=== PATIENT | male | born 1990 | race African-American/Black ===

== ENCOUNTER 2019-08-08 20:35 | Inpatient (IN) | payer OTHER ==
[~2019-08-08] VITALS: Ht 170.2 cm; Wt 70.8 kg
[~2019-08-08 20:35] MED LIST: ACET-2247 PO; BISA-151 PO; BUME1TAB34 PO; ERGO500014 PO; ETOMIDATE 2 MG/ML 10 ML VIAL IV ONE; GABA-531 PO; INSU100I26 SQ; INSU100V SQ; LOSA25TA41 PO; METH10 PO; METO25 PO; METR500 PO; MULT-248 PO; NYST15PO3 TP; PANT40TA25 PO; ROCURONIUM BROMIDE 10 MG/ML 5 ML VIAL IV ONE; VANC750P8 IV
[2019-08-08] MEDS ORDERED: ROCURONIUM BROMIDE 10 MG/ML 5 ML VIAL ONE (21:06)
[2019-08-08] MEDS ORDERED: RAPID SEQUENCE KIT [RSI] 1 EACH KIT ONE (21:06)
[2019-08-08] MEDS ORDERED: SUCCINYLCHOLINE CHLORIDE 20 MG/ML 10 ML VIAL ONE (21:06)
[2019-08-08 21:10] LABS: BASOPHILS % (AUTO) 1.2 % (0.0-2.0); EOSINOPHILS % (AUTO) 0 % (1.0-6.0); HEMATOCRIT 48.8 % (41-53); HEMOGLOBIN 15.3 g/dL (13.5-17.5); LYMPHOCYTES # (AUTO) 1.3 K/uL (1.0-4.8); LYMPHOCYTES % (AUTO) 13.1 % (22.0-44.0); MEAN CORPUSCULAR HEMOGLOBIN 27.2 pg (26.0-34.0); MEAN CORPUSCULAR HGB CONC 31.3 G/dL (31.0-37.0); MEAN CORPUSCULAR VOLUME 87 fL (80-100); MONOCYTES # (AUTO) 0.8 K/uL (0.1-1.0); NEUTROPHILS # (AUTO) 7.8 K/uL (1.8-7.7); NEUTROPHILS % (AUTO) 77.7 % (40.0-70.0); PLATELET COUNT (AUTO) 387 K/uL (150-450); RED BLOOD CELL COUNT(AUTO) 5.62 MIL/uL (4.50-5.90); RED CELL DISTRIBUTION WIDTH 19.6 % (11.5-14.5)
[2019-08-08 21:12] LABS: ANION GAP 11 mmol/L (8-16); CALCIUM, TOTAL 8.2 mg/dL (8.8-10.5); CARBON DIOXIDE 27 mmol/L (22-29); CHLORIDE 100 mmol/L (98-107); CREATININE 1.99 mg/dL (0.60-1.30); GLOMERULAR FILTR. RATE CALC 49 mL/min (>60); GLUCOSE,RANDOM 91 mg/dL (70-110); POTASSIUM 4.6 mmol/L (3.5-5.1); SODIUM SERUM 138 mmol/L (136-145); UREA NITROGEN, BLOOD 30 mg/dL (7-18)
[2019-08-08 21:18] LABS: TROPONIN I 0.48 ng/mL (0.00-0.05)
[2019-08-08 21:22] LABS: INR 1.3 (0.9-1.1); PROTHROMBIN TIME 13.1 SEC (9.4-11.6)
[2019-08-08] MEDS ORDERED: PROPOFOL 1000 MG/ISO-OSM 100 ML IV ONE (21:35)
[2019-08-08 21:37] LABS: ALANINE AMINOTRANSFERASE 25 U/L (12-78); ALBUMIN 2.6 g/dL (3.4-5.0); ALKALINE PHOSPHATASE 185 U/L (46-116); ASPARTATE AMINOTRANSFERASE 36 U/L (15-37); BILIRUBIN,TOTAL 0.8 mg/dL (0.1-1.0); CREATINE KINASE, TOTAL ONLY 225 U/L (39-308); LACTIC ACID 5.3 mmol/L (0.4-2.0); TOTAL PROTEIN, SERUM 7.6 g/dL (6.4-8.2)
[2019-08-08 21:44] LABS: GLUCOSE,POINT OF CARE 90 MG/DL (70-110)
[2019-08-08] MEDS ORDERED: SODIUM CHLORIDE 0.9% 1,000 ML IV ONE ×2 (21:45)
[2019-08-08 22:03] LABS: AMPHET/METH SCREEN,URINE NEGATIVE (NEGATIVE); BARBITURATE SCREEN, URINE NEGATIVE (NEGATIVE); BENZODIAZEPINES SCREEN,URINE NEGATIVE (NEGATIVE); CANNABINOID SCREEN,URINE POSITIVE (NEGATIVE); COCAINE SCREEN,URINE NEGATIVE (NEGATIVE); METHADONE SCREEN, URINE NEGATIVE (NEGATIVE); OPIATE SCREEN,URINE POSITIVE (NEGATIVE)
[2019-08-08 22:06] LABS: APPEARANCE,URINE CLEAR (CLEAR); BILIRUBIN,URINE NEGATIVE (NEGATIVE); GLUCOSE, URINE (UA) NEGATIVE (NEGATIVE); KETONES,URINE TRACE mg/dL (NEGATIVE); LEUKOCYTE ESTERASE ,URINE NEGATIVE (NEGATIVE); NITRATE,URINE NEGATIVE (NEGATIVE); OCCULT BLOOD,URINE NEGATIVE (NEGATIVE); PROTEIN,URINE SEE CONFIRM (NEGATIVE)
[2019-08-08 22:07] LABS: PHENCYCLIDINE SCREEN,URINE NEGATIVE (NEGATIVE)
[2019-08-08] MEDS: PROPOFOL 1000 MG/ISO-OSM 100 ML IV PRN (22:19)
[2019-08-08 22:31] LABS: SULFOSALICYLIC ACID,URINE 3+ (Negative)
[2019-08-08 22:34] LABS: WBC,URINE 0-2 /HPF (0-5)
[2019-08-08 22:35] LABS: BACTERIA,URINE Rare /HPF (None Seen); SQUAMOUS EPITHELIAL CELL,UR Rare /LPF (None Seen)
[2019-08-08 22:36] LABS: RBC,URINE 0-2 /HPF (0-2)
[2019-08-08 22:36] LABS: GLUCOSE,POINT OF CARE 88 MG/DL (70-110)
[2019-08-08 22:37] LABS: RENAL EPITHELIAL CELLS,URINE Rare /LPF (None Seen)
[2019-08-08] MEDS ORDERED: LEVOFLOXACIN 750 MG/D5% WATER 150 ML IV ONE (22:45)
[2019-08-08 23:20] LABS: ABG A-A DIFF O2 434.2 mmHg (10-20.0); ABG BASE EXCESS -0.7 mmol/L (-2.0-3.0); ABG CARBOXYHEMOGLOBIN 1.8 % (0.0-3.0); ABG HCO3 21.3 mmol/L (22.0-26.0); ABG METHEMOGLOBIN 0.4 % (0.0-1.5); ABG OXYGEN CONTENT 21.9 mL/dL (15.0-23.0); ABG OXYGEN SATURATION 98.7 % (95.0-98.0); ABG OXYHEMOGLOBIN 96.5 % (94.0-100.0); ABG TOTAL HEMOGLOBIN 15.9 G/dL (12.0-18.0); PO2, ARTERIAL BG 183.3 mmHg (80.0-100.0); SOURCE, BLOOD GAS ARTERIAL; TEMPERATURE, FAHRENHEIT, BG 98.6 FAHREN (96.0-98.6)
[2019-08-08 23:21] LABS: ABG PCO2 96 mmHg (35-45); O2 DEVICE,BLOOD GAS VENTILATOR (ROOM AIR); PEEP,BG 5 cm H2O; SITE, BLOOD GAS RT RADIAL; VT, ABG 500 ml
[2019-08-08] MEDS ORDERED: BISACODYL 10 MG RECTAL RECTAL SUPPOSITORY PR PRN (23:45)
[2019-08-08 23:52] LABS: GLUCOSE,POINT OF CARE 138 MG/DL (70-110)
[2019-08-09] VITALS (9 sets, daily range): BP systolic 127–176; BP diastolic 11–117
[2019-08-09] MEDS: HEPARIN SODIUM,PORCINE 5,000 UNITS/ML VIAL SQ SCH ×3 (01:01→17:09)
[2019-08-09] MEDS: PROPOFOL 1000 MG/ISO-OSM 100 ML IV PRN ×4 (01:02→20:03)
[2019-08-09] MEDS: SODIUM CHLORIDE 0.9% 1,000 ML IV SCH ×2 (01:04→09:49)
[2019-08-09] MEDS: CloNIDine HCL 0.1 MG TABLET PO PRN ×2 (01:59→10:47)
[2019-08-09 05:29] LABS: ANION GAP 9 mmol/L (8-16); CALCIUM, TOTAL 7.7 mg/dL (8.8-10.5); CARBON DIOXIDE 25 mmol/L (22-29); CHLORIDE 104 mmol/L (98-107); GLOMERULAR FILTR. RATE CALC > 60 mL/min (>60); GLUCOSE,RANDOM 122 mg/dL (70-110); POTASSIUM 4.4 mmol/L (3.5-5.1); SODIUM SERUM 138 mmol/L (136-145); UREA NITROGEN, BLOOD 28 mg/dL (7-18)
[2019-08-09 05:59] LABS: BASOPHILS % (AUTO) 0.7 % (0.0-2.0); EOSINOPHILS % (AUTO) 0.4 % (1.0-6.0); HEMATOCRIT 39.3 % (41-53); HEMOGLOBIN 12.4 g/dL (13.5-17.5); LYMPHOCYTES # (AUTO) 2.3 K/uL (1.0-4.8); LYMPHOCYTES % (AUTO) 11.7 % (22.0-44.0); MEAN CORPUSCULAR HEMOGLOBIN 27.2 pg (26.0-34.0); MEAN CORPUSCULAR HGB CONC 31.5 G/dL (31.0-37.0); MEAN CORPUSCULAR VOLUME 86 fL (80-100); NEUTROPHILS # (AUTO) 15.2 K/uL (1.8-7.7); NEUTROPHILS % (AUTO) 77.2 % (40.0-70.0); PLATELET COUNT (AUTO) 286 K/uL (150-450); RED BLOOD CELL COUNT(AUTO) 4.56 MIL/uL (4.50-5.90); RED CELL DISTRIBUTION WIDTH 18.8 % (11.5-14.5)
[2019-08-09 06:17] LABS: PLATELET MORPHOLOGY COMMENT LARGE PLTS PRESENT
[2019-08-09 08:07] LABS: ABG METHEMOGLOBIN 0.3 % (0.0-1.5); SOURCE, BLOOD GAS ARTERIAL; TEMPERATURE, FAHRENHEIT, BG 98.6 FAHREN (96.0-98.6)
[2019-08-09 08:09] LABS: ABG A-A DIFF O2 126.6 mmHg (10-20.0); ABG BASE EXCESS -3.1 mmol/L (-2.0-3.0); ABG CARBOXYHEMOGLOBIN 1.8 % (0.0-3.0); ABG HCO3 22.4 mmol/L (22.0-26.0); ABG OXYGEN CONTENT 18.7 mL/dL (15.0-23.0); ABG OXYGEN SATURATION 98.4 % (95.0-98.0); ABG OXYHEMOGLOBIN 96.3 % (94.0-100.0); ABG PCO2 36 mmHg (35-45); ABG PH 7.398 (7.350-7.450); ABG TOTAL HEMOGLOBIN 13.7 G/dL (12.0-18.0); PO2, ARTERIAL BG 117.2 mmHg (80.0-100.0)
[2019-08-09 08:10] LABS: O2 DEVICE,BLOOD GAS VENTILATOR (ROOM AIR); PEEP,BG 5 cm H2O; SITE, BLOOD GAS RT RADIAL; VT, ABG 500 ml
[2019-08-09] MEDS ORDERED: *CLINICAL-LEVOFLOXACIN IVPB DOSING CLINICAL ONE (08:30)
[2019-08-09] MEDS: DEXTROSE 50%-WATER 25 GM/50 ML SYRINGE IVP PRN ×2 (12:23→22:10)
[2019-08-09] MEDS ORDERED: DEXTROSE 5%-WATER 1,000 ML IV SCH (12:30)
[2019-08-09] MEDS: DEXTROSE 5%-0.9% SODIUM CHL 1,000 ML IV SCH (13:40)
[2019-08-09 13:49] LABS: GLUCOSE,POINT OF CARE 148 MG/DL (70-110)
[2019-08-09] MEDS: HydrALAZINE HCL 20 MG/ML VIAL IVP PRN (16:15)
[2019-08-09] MEDS ORDERED: ETOMIDATE 2 MG/ML 10 ML VIAL IV ONE (18:08)
[2019-08-09] MEDS ORDERED: ROCURONIUM BROMIDE 10 MG/ML 5 ML VIAL IV ONE (18:08)
[2019-08-09 18:15] LABS: GLUCOSE,POINT OF CARE 64 MG/DL (70-110)
[2019-08-09 19:12] LABS: GLUCOSE,POINT OF CARE 102 MG/DL (70-110)
[2019-08-09] MEDS: METOPROLOL TARTRATE 25 MG TABLET PO SCH (20:02)
[2019-08-09] MEDS: FentaNYL CITRATE PF 500 MCG in DEXTROSE 5%-WATER 90 ML IV PRN (20:15)
[2019-08-09] MEDS: LEVOFLOXACIN 750 MG/D5% WATER 150 ML IV SCH (23:11)
[2019-08-10] VITALS: BP 138/89
[2019-08-10] MEDS: HEPARIN SODIUM,PORCINE 5,000 UNITS/ML VIAL SQ SCH ×4 (00:05→23:29)
[2019-08-10] MEDS: PROPOFOL 1000 MG/ISO-OSM 100 ML IV PRN ×5 (00:06→20:54)
[2019-08-10 01:06] LABS: GLUCOSE,POINT OF CARE 61 MG/DL (70-110)
[2019-08-10 01:06] LABS: GLUCOSE,POINT OF CARE 157 MG/DL (70-110)
[2019-08-10] MEDS: FentaNYL CITRATE PF 500 MCG in DEXTROSE 5%-WATER 90 ML IV PRN ×4 (03:22→21:20)
[2019-08-10 04:00] VITALS: BP 129/83
[2019-08-10] MEDS: DEXTROSE 5%-0.9% SODIUM CHL 1,000 ML IV SCH ×2 (04:28→17:08)
[2019-08-10] MEDS: INSULIN LISPRO 100 UNITS/ML SQ PRN ×4 (05:43→23:48)
[2019-08-10] MEDS: LORazepam 2 MG/ML VIAL IVP PRN ×2 (06:32→20:58)
[2019-08-10 07:30] LABS: GLUCOSE,POINT OF CARE 202 MG/DL (70-110)
[2019-08-10 08:00] VITALS: BP 109/62
[2019-08-10 09:09] LABS: BASOPHILS % (AUTO) 0.8 % (0.0-2.0); EOSINOPHILS % (AUTO) 5.3 % (1.0-6.0); HEMOGLOBIN 13.8 g/dL (13.5-17.5); LYMPHOCYTES # (AUTO) 2.1 K/uL (1.0-4.8); LYMPHOCYTES % (AUTO) 21.5 % (22.0-44.0); MEAN CORPUSCULAR HEMOGLOBIN 27.3 pg (26.0-34.0); MEAN CORPUSCULAR HGB CONC 31.4 G/dL (31.0-37.0); MEAN CORPUSCULAR VOLUME 87 fL (80-100); MONOCYTES # (AUTO) 0.9 K/uL (0.1-1.0); MONOCYTES % (AUTO) 9.4 % (2.0-9.0); NEUTROPHILS # (AUTO) 6.2 K/uL (1.8-7.7); PLATELET COUNT (AUTO) 246 K/uL (150-450); RED BLOOD CELL COUNT(AUTO) 5.05 MIL/uL (4.50-5.90); RED CELL DISTRIBUTION WIDTH 18.9 % (11.5-14.5)
[2019-08-10 09:19] LABS: ANION GAP 7 mmol/L (8-16); CALCIUM, TOTAL 7.5 mg/dL (8.8-10.5); CARBON DIOXIDE 29 mmol/L (22-29); CHLORIDE 105 mmol/L (98-107); CREATININE 1.07 mg/dL (0.60-1.30); GLOMERULAR FILTR. RATE CALC > 60 mL/min (>60); GLUCOSE,RANDOM 195 mg/dL (70-110); POTASSIUM 3.3 mmol/L (3.5-5.1); SODIUM SERUM 141 mmol/L (136-145); UREA NITROGEN, BLOOD 13 mg/dL (7-18)
[2019-08-10] MEDS: METOPROLOL TARTRATE 25 MG TABLET PO SCH ×2 (09:24→21:19)
[2019-08-10 11:37] LABS: GLUCOSE,POINT OF CARE 220 MG/DL (70-110)
[2019-08-10 12:00] VITALS: BP 129/75
[2019-08-10 16:00] VITALS: BP 138/98
[2019-08-10 18:57] LABS: GLUCOSE,POINT OF CARE 143 MG/DL (70-110)
[2019-08-10 20:00] VITALS: BP 116/67
[2019-08-10] MEDS: POTASSIUM CHL 10 MEQ/WATER 50 ML IV SCH ×2 (21:13→22:27)
[2019-08-10] MEDS: LEVOFLOXACIN 750 MG/D5% WATER 150 ML IV SCH (23:25)
[2019-08-11] VITALS: BP 114/75
[2019-08-11] MEDS: PROPOFOL 1000 MG/ISO-OSM 100 ML IV PRN ×5 (00:48→18:22)
[2019-08-11 00:51] LABS: GLUCOSE,POINT OF CARE 159 MG/DL (70-110)
[2019-08-11] MEDS: FentaNYL CITRATE PF 500 MCG in DEXTROSE 5%-WATER 90 ML IV PRN ×2 (04:27→13:43)
[2019-08-11 04:34] VITALS: BP 133/94
[2019-08-11] MEDS: INSULIN LISPRO 100 UNITS/ML SQ PRN ×3 (06:39→18:24)
[2019-08-11 06:51] LABS: ANION GAP 7 mmol/L (8-16); CARBON DIOXIDE 26 mmol/L (22-29); CHLORIDE 105 mmol/L (98-107); CREATININE 0.95 mg/dL (0.60-1.30); GLOMERULAR FILTR. RATE CALC > 60 mL/min (>60); GLUCOSE,RANDOM 387 mg/dL (70-110); SODIUM SERUM 138 mmol/L (136-145); UREA NITROGEN, BLOOD 12 mg/dL (7-18)
[2019-08-11 08:00] VITALS: BP 140/93
[2019-08-11] MEDS: HEPARIN SODIUM,PORCINE 5,000 UNITS/ML VIAL SQ SCH ×2 (08:09→16:51)
[2019-08-11] MEDS: METOPROLOL TARTRATE 25 MG TABLET PO SCH ×2 (08:10→22:10)
[2019-08-11] MEDS: DEXTROSE 5%-0.9% SODIUM CHL 1,000 ML IV SCH (08:13)
[2019-08-11 08:24] LABS: GLUCOSE,POINT OF CARE 365 MG/DL (70-110)
[2019-08-11 08:56] LABS: BASOPHILS % (AUTO) 0.6 % (0.0-2.0); EOSINOPHILS % (AUTO) 7.7 % (1.0-6.0); HEMATOCRIT 46.6 % (41-53); HEMOGLOBIN 14.7 g/dL (13.5-17.5); LYMPHOCYTES # (AUTO) 1.6 K/uL (1.0-4.8); LYMPHOCYTES % (AUTO) 18.2 % (22.0-44.0); MEAN CORPUSCULAR HEMOGLOBIN 27.4 pg (26.0-34.0); MEAN CORPUSCULAR HGB CONC 31.5 G/dL (31.0-37.0); MEAN CORPUSCULAR VOLUME 87 fL (80-100); MONOCYTES # (AUTO) 0.7 K/uL (0.1-1.0); MONOCYTES % (AUTO) 7.7 % (2.0-9.0); NEUTROPHILS # (AUTO) 5.6 K/uL (1.8-7.7); NEUTROPHILS % (AUTO) 65.8 % (40.0-70.0); PLATELET COUNT (AUTO) 239 K/uL (150-450); RED BLOOD CELL COUNT(AUTO) 5.37 MIL/uL (4.50-5.90); RED CELL DISTRIBUTION WIDTH 19.4 % (11.5-14.5)
[2019-08-11 12:00] VITALS: BP 125/83
[2019-08-11 12:35] LABS: GLUCOSE,POINT OF CARE 318 MG/DL (70-110)
[2019-08-11 16:00] VITALS: BP 112/69
[2019-08-11 17:48] LABS: GLUCOSE,POINT OF CARE 270 MG/DL (70-110)
[2019-08-11 20:00] VITALS: BP 118/72
[2019-08-11] MEDS ORDERED: SODIUM CHLORIDE 0.9% 250 ML IV ONE ×2 (20:03→20:11)
[2019-08-11] MEDS: LEVOFLOXACIN 750 MG/D5% WATER 150 ML IV SCH (22:10)
[2019-08-12] VITALS: BP 141/95
[2019-08-12] MEDS: HEPARIN SODIUM,PORCINE 5,000 UNITS/ML VIAL SQ SCH ×3 (00:08→15:01)
[2019-08-12] MEDS: PROPOFOL 1000 MG/ISO-OSM 100 ML IV PRN ×6 (00:09→23:11)
[2019-08-12] MEDS: INSULIN LISPRO 100 UNITS/ML SQ PRN ×4 (00:25→18:28)
[2019-08-12] MEDS: FentaNYL CITRATE PF 500 MCG in DEXTROSE 5%-WATER 90 ML IV PRN ×4 (00:26→20:00)
[2019-08-12 04:00] VITALS: BP 163/110
[2019-08-12] MEDS ORDERED: SODIUM CHLORIDE 0.9% 250 ML IV ONE (04:40)
[2019-08-12] MEDS: LORazepam 2 MG/ML VIAL IVP PRN (04:42)
[2019-08-12] MEDS: HydrALAZINE HCL 20 MG/ML VIAL IVP PRN ×2 (04:42→22:59)
[2019-08-12 06:03] LABS: GLUCOSE,POINT OF CARE 315 MG/DL (70-110)
[2019-08-12 07:03] LABS: GLUCOSE,POINT OF CARE 183 MG/DL (70-110)
[2019-08-12 07:20] LABS: EOSINOPHILS % (AUTO) 9.2 % (1.0-6.0); HEMATOCRIT 44.5 % (41-53); HEMOGLOBIN 14.2 g/dL (13.5-17.5); LYMPHOCYTES # (AUTO) 2.1 K/uL (1.0-4.8); LYMPHOCYTES % (AUTO) 19.8 % (22.0-44.0); MEAN CORPUSCULAR HEMOGLOBIN 27.4 pg (26.0-34.0); MEAN CORPUSCULAR HGB CONC 31.9 G/dL (31.0-37.0); MEAN CORPUSCULAR VOLUME 86 fL (80-100); MONOCYTES % (AUTO) 9.3 % (2.0-9.0); NEUTROPHILS # (AUTO) 6.5 K/uL (1.8-7.7); NEUTROPHILS % (AUTO) 60.7 % (40.0-70.0); PLATELET COUNT (AUTO) 290 K/uL (150-450); RED BLOOD CELL COUNT(AUTO) 5.18 MIL/uL (4.50-5.90); RED CELL DISTRIBUTION WIDTH 20.1 % (11.5-14.5)
[2019-08-12 07:24] LABS: ANION GAP 6 mmol/L (8-16); CALCIUM, TOTAL 8.1 mg/dL (8.8-10.5); CARBON DIOXIDE 27 mmol/L (22-29); CHLORIDE 107 mmol/L (98-107); CREATININE 1.16 mg/dL (0.60-1.30); GLOMERULAR FILTR. RATE CALC > 60 mL/min (>60); GLUCOSE,RANDOM 200 mg/dL (70-110); POTASSIUM 3.9 mmol/L (3.5-5.1); SODIUM SERUM 140 mmol/L (136-145); UREA NITROGEN, BLOOD 13 mg/dL (7-18)
[2019-08-12 08:00] VITALS: BP 131/61
[2019-08-12] MEDS: METOPROLOL TARTRATE 25 MG TABLET PO SCH ×2 (08:04→15:01)
[2019-08-12 12:00] VITALS: BP 133/89
[2019-08-12 15:17] LABS: GLUCOSE,POINT OF CARE 281 MG/DL (70-110)
[2019-08-12 16:00] VITALS: BP 142/98
[2019-08-12] MEDS ORDERED: MAGNESIUM SULFATE 4 GM/WATER 100 ML IV PRN (16:30)
[2019-08-12] MEDS ORDERED: MAGNESIUM SULFATE 2 GM/WATER 50 ML IV PRN (16:30)
[2019-08-12] MEDS ORDERED: MAGNESIUM OXIDE 400 MG TABLET PO PRN (16:30)
[2019-08-12 20:00] VITALS: BP 151/92
[2019-08-12 20:01] LABS: GLUCOSE,POINT OF CARE 381 MG/DL (70-110)
[2019-08-12] MEDS: LEVOFLOXACIN 750 MG/D5% WATER 150 ML IV SCH (22:37)
[2019-08-13] VITALS: BP 124/61
[2019-08-13] MEDS: INSULIN LISPRO 100 UNITS/ML SQ PRN ×3 (00:09→18:19)
[2019-08-13] MEDS: FentaNYL CITRATE PF 500 MCG in DEXTROSE 5%-WATER 90 ML IV PRN ×5 (00:58→23:25)
[2019-08-13 01:26] LABS: GLUCOSE,POINT OF CARE 345 MG/DL (70-110)
[2019-08-13] MEDS ORDERED: SODIUM CHLORIDE 0.9% 250 ML IV ONE ×2 (01:49→03:49)
[2019-08-13] MEDS: PROPOFOL 1000 MG/ISO-OSM 100 ML IV PRN ×5 (03:41→22:54)
[2019-08-13 04:00] VITALS: BP 155/97
[2019-08-13 06:13] LABS: ANION GAP 10 mmol/L (8-16); CALCIUM, TOTAL 8.5 mg/dL (8.8-10.5); CARBON DIOXIDE 26 mmol/L (22-29); CHLORIDE 100 mmol/L (98-107); CREATININE 1.06 mg/dL (0.60-1.30); GLOMERULAR FILTR. RATE CALC > 60 mL/min (>60); GLUCOSE,RANDOM 400 mg/dL (70-110); POTASSIUM 3.9 mmol/L (3.5-5.1); SODIUM SERUM 136 mmol/L (136-145); UREA NITROGEN, BLOOD 16 mg/dL (7-18)
[2019-08-13 06:45] LABS: GLUCOSE,POINT OF CARE 377 MG/DL (70-110)
[2019-08-13] MEDS: HydrALAZINE HCL 20 MG/ML VIAL IVP PRN (06:56)
[2019-08-13 08:00] VITALS: BP 151/96
[2019-08-13] MEDS: HEPARIN SODIUM,PORCINE 5,000 UNITS/ML VIAL SQ SCH ×3 (08:09→16:16)
[2019-08-13] MEDS: METOPROLOL TARTRATE 25 MG TABLET PO SCH ×2 (08:09→20:20)
[2019-08-13] MEDS: LORazepam 2 MG/ML VIAL IVP PRN (09:39)
[2019-08-13 12:00] VITALS: BP 138/86
[2019-08-13] MEDS ORDERED: INSULIN LISPRO 100 UNITS/ML SQ ONE ×2 (12:00→18:30)
[2019-08-13 12:25] LABS: GLUCOSE,POINT OF CARE 409 MG/DL (70-110)
[2019-08-13 16:00] VITALS: BP 143/87
[2019-08-13 18:17] LABS: GLUCOSE,POINT OF CARE 416 MG/DL (70-110)
[2019-08-13 20:00] VITALS: BP 126/78
[2019-08-13] MEDS: INSULIN GLARGINE,HUM.REC.ANLOG 100 UNITS/ML SQ SCH (20:19)
[2019-08-13] MEDS: LEVOFLOXACIN 750 MG/D5% WATER 150 ML IV SCH (22:49)
[2019-08-13 23:36] LABS: GLUCOSE,POINT OF CARE 369 MG/DL (70-110)
[2019-08-14] VITALS (7 sets, daily range): BP systolic 102–144; BP diastolic 60–105
[2019-08-14] MEDS: HEPARIN SODIUM,PORCINE 5,000 UNITS/ML VIAL SQ SCH ×3 (00:02→16:27)
[2019-08-14 00:03] LABS: GLUCOSE,POINT OF CARE 353 MG/DL (70-110)
[2019-08-14] MEDS: INSULIN LISPRO 100 UNITS/ML SQ PRN ×4 (00:03→17:57)
[2019-08-14] MEDS: PROPOFOL 1000 MG/ISO-OSM 100 ML IV PRN ×5 (03:05→22:22)
[2019-08-14] MEDS: FentaNYL CITRATE PF 500 MCG in DEXTROSE 5%-WATER 90 ML IV PRN ×2 (04:18→17:12)
[2019-08-14] MEDS ORDERED: SODIUM CHLORIDE 0.9% 250 ML IV ONE (04:50)
[2019-08-14 06:48] LABS: GLUCOSE,POINT OF CARE 231 MG/DL (70-110)
[2019-08-14] MEDS: METOPROLOL TARTRATE 25 MG TABLET PO SCH ×2 (08:29→21:39)
[2019-08-14] MEDS: INSULIN GLARGINE,HUM.REC.ANLOG 100 UNITS/ML SQ SCH ×2 (08:31→21:48)
[2019-08-14 12:02] LABS: GLUCOSE,POINT OF CARE 212 MG/DL (70-110)
[2019-08-14] MEDS: LORazepam 2 MG/ML VIAL IVP PRN ×2 (12:15→20:26)
[2019-08-14 22:46] LABS: GLUCOSE,POINT OF CARE 218 MG/DL (70-110)
[2019-08-14] MEDS: LEVOFLOXACIN 750 MG/D5% WATER 150 ML IV SCH (23:22)
[2019-08-15] VITALS: BP 150/90
[2019-08-15] MEDS: HEPARIN SODIUM,PORCINE 5,000 UNITS/ML VIAL SQ SCH ×3 (00:03→16:12)
[2019-08-15] MEDS: INSULIN LISPRO 100 UNITS/ML SQ PRN ×4 (00:04→18:26)
[2019-08-15 01:17] LABS: GLUCOSE,POINT OF CARE 251 MG/DL (70-110)
[2019-08-15] MEDS: FentaNYL CITRATE PF 500 MCG in DEXTROSE 5%-WATER 90 ML IV PRN ×4 (02:40→23:03)
[2019-08-15] MEDS: PROPOFOL 1000 MG/ISO-OSM 100 ML IV PRN ×5 (02:41→22:38)
[2019-08-15 04:00] VITALS: BP 154/101
[2019-08-15] MEDS: HydrALAZINE HCL 20 MG/ML VIAL IVP PRN ×2 (05:44→20:27)
[2019-08-15 07:33] LABS: GLUCOSE,POINT OF CARE 184 MG/DL (70-110)
[2019-08-15] MEDS: METOPROLOL TARTRATE 25 MG TABLET PO SCH ×2 (07:59→20:50)
[2019-08-15 08:00] VITALS: BP 112/60
[2019-08-15] MEDS: INSULIN GLARGINE,HUM.REC.ANLOG 100 UNITS/ML SQ SCH ×2 (08:01→20:56)
[2019-08-15 12:00] VITALS: BP 124/72
[2019-08-15] MEDS: MethylPREDNISolone SOD SUCC 125 MG/2 ML VIAL IVP SCH ×2 (13:17→18:12)
[2019-08-15 14:59] LABS: GLUCOSE,POINT OF CARE 193 MG/DL (70-110)
[2019-08-15 14:59] LABS: GLUCOSE,POINT OF CARE 236 MG/DL (70-110)
[2019-08-15 16:00] VITALS: BP 129/90
[2019-08-15] MEDS: IPRATROPIUM BROMIDE 0.5 MG/2.5 ML NEB SOLUTION NEB SCH ×3 (16:23→22:22)
[2019-08-15] MEDS: ALBUTEROL SULFATE 2.5 MG/0.5 ML NEB SOLUTION NEB SCH ×3 (16:23→22:22)
[2019-08-15] MEDS: LORazepam 2 MG/ML VIAL IVP PRN ×2 (17:30→23:31)
[2019-08-15 18:39] LABS: GLUCOSE,POINT OF CARE 205 MG/DL (70-110)
[2019-08-15 20:00] VITALS: BP 168/116
[2019-08-15] MEDS: LEVOFLOXACIN 750 MG/D5% WATER 150 ML IV SCH (22:52)
[2019-08-16] VITALS: BP 155/98
[2019-08-16] MEDS: MethylPREDNISolone SOD SUCC 125 MG/2 ML VIAL IVP SCH ×4 (00:06→17:37)
[2019-08-16] MEDS: HEPARIN SODIUM,PORCINE 5,000 UNITS/ML VIAL SQ SCH ×3 (00:06→15:23)
[2019-08-16] MEDS: INSULIN LISPRO 100 UNITS/ML SQ PRN (00:19)
[2019-08-16] MEDS: PROPOFOL 1000 MG/ISO-OSM 100 ML IV PRN ×5 (02:03→19:04)
[2019-08-16] MEDS: HydrALAZINE HCL 20 MG/ML VIAL IVP PRN ×2 (02:58→22:15)
[2019-08-16] MEDS: ALBUTEROL SULFATE 2.5 MG/0.5 ML NEB SOLUTION NEB SCH ×6 (03:10→22:55)
[2019-08-16] MEDS: IPRATROPIUM BROMIDE 0.5 MG/2.5 ML NEB SOLUTION NEB SCH ×6 (03:11→22:55)
[2019-08-16] MEDS ORDERED: 0.9% SODIUM CHLORIDE 15 ML NEB SOLUTION NEB ONE (03:12)
[2019-08-16 04:00] VITALS: BP 138/82
[2019-08-16] MEDS: FentaNYL CITRATE PF 500 MCG in DEXTROSE 5%-WATER 90 ML IV PRN ×4 (05:00→23:02)
[2019-08-16 05:33] LABS: ANION GAP 7 mmol/L (8-16); CALCIUM, TOTAL 8.3 mg/dL (8.8-10.5); CARBON DIOXIDE 28 mmol/L (22-29); CHLORIDE 101 mmol/L (98-107); CREATININE 1.08 mg/dL (0.60-1.30); GLOMERULAR FILTR. RATE CALC > 60 mL/min (>60); POTASSIUM 4.5 mmol/L (3.5-5.1); SODIUM SERUM 136 mmol/L (136-145); UREA NITROGEN, BLOOD 29 mg/dL (7-18)
[2019-08-16 05:38] LABS: GLUCOSE,RANDOM 438 mg/dL (70-110)
[2019-08-16 06:08] LABS: GLUCOSE,POINT OF CARE 316 MG/DL (70-110)
[2019-08-16 06:08] LABS: GLUCOSE,POINT OF CARE 450 MG/DL (70-110)
[2019-08-16] MEDS: INSULIN REGULAR, HUMAN 100 UNITS/ML SQ PRN ×3 (06:38→17:38)
[2019-08-16 06:48] LABS: GLUCOSE,POINT OF CARE 219 MG/DL (70-110)
[2019-08-16 08:00] VITALS: BP 145/87
[2019-08-16] MEDS: METOPROLOL TARTRATE 25 MG TABLET PO SCH ×2 (08:30→21:58)
[2019-08-16] MEDS: INSULIN GLARGINE,HUM.REC.ANLOG 100 UNITS/ML SQ SCH ×2 (08:33→21:57)
[2019-08-16] MEDS: LORazepam 2 MG/ML VIAL IVP PRN ×2 (10:14→22:49)
[2019-08-16 12:00] VITALS: BP 119/66
[2019-08-16 12:17] LABS: GLUCOSE,POINT OF CARE 310 MG/DL (70-110)
[2019-08-16 16:00] VITALS: BP 145/93
[2019-08-16] MEDS ORDERED: SODIUM CHLORIDE 0.9% 250 ML IV ONE (19:20)
[2019-08-16 19:46] LABS: GLUCOSE,POINT OF CARE 340 MG/DL (70-110)
[2019-08-16 20:00] VITALS: BP 117/92
[2019-08-16] MEDS: DOCUSATE SODIUM 100 MG/10 ML LIQUID UDCUP NG SCH (21:56)
[2019-08-16] MEDS: LEVOFLOXACIN 750 MG/D5% WATER 150 ML IV SCH (22:47)
[2019-08-17] VITALS: BP 117/66
[2019-08-17] MEDS: MethylPREDNISolone SOD SUCC 125 MG/2 ML VIAL IVP SCH ×4 (00:22→18:19)
[2019-08-17] MEDS: HEPARIN SODIUM,PORCINE 5,000 UNITS/ML VIAL SQ SCH ×3 (00:23→16:25)
[2019-08-17] MEDS: INSULIN REGULAR, HUMAN 100 UNITS/ML SQ PRN ×4 (00:35→18:20)
[2019-08-17] MEDS: PROPOFOL 1000 MG/ISO-OSM 100 ML IV PRN ×4 (00:40→14:42)
[2019-08-17] MEDS: IPRATROPIUM BROMIDE 0.5 MG/2.5 ML NEB SOLUTION NEB SCH ×6 (03:13→22:55)
[2019-08-17] MEDS: ALBUTEROL SULFATE 2.5 MG/0.5 ML NEB SOLUTION NEB SCH ×6 (03:13→22:55)
[2019-08-17 04:00] VITALS: BP 158/94
[2019-08-17] MEDS: HydrALAZINE HCL 20 MG/ML VIAL IVP PRN (04:33)
[2019-08-17 04:52] LABS: BASOPHILS % (AUTO) 0.8 % (0.0-2.0); EOSINOPHILS % (AUTO) 0 % (1.0-6.0); HEMATOCRIT 40.3 % (41-53); HEMOGLOBIN 12.7 g/dL (13.5-17.5); LYMPHOCYTES # (AUTO) 0.8 K/uL (1.0-4.8); LYMPHOCYTES % (AUTO) 7.6 % (22.0-44.0); MEAN CORPUSCULAR HEMOGLOBIN 27.1 pg (26.0-34.0); MEAN CORPUSCULAR HGB CONC 31.5 G/dL (31.0-37.0); MEAN CORPUSCULAR VOLUME 86 fL (80-100); MONOCYTES # (AUTO) 0.4 K/uL (0.1-1.0); MONOCYTES % (AUTO) 3.9 % (2.0-9.0); PLATELET COUNT (AUTO) 322 K/uL (150-450); RED BLOOD CELL COUNT(AUTO) 4.67 MIL/uL (4.50-5.90); RED CELL DISTRIBUTION WIDTH 19.8 % (11.5-14.5)
[2019-08-17 04:58] LABS: NEUTROPHILS % (AUTO) 87.7 % (40.0-70.0)
[2019-08-17 05:01] LABS: GLUCOSE,POINT OF CARE 425 MG/DL (70-110)
[2019-08-17 05:10] LABS: ALANINE AMINOTRANSFERASE 10 U/L (12-78); ALBUMIN 2.1 g/dL (3.4-5.0); ALKALINE PHOSPHATASE 96 U/L (46-116); ANION GAP 4 mmol/L (8-16); ASPARTATE AMINOTRANSFERASE 16 U/L (15-37); BILIRUBIN,TOTAL 0.3 mg/dL (0.1-1.0); CALCIUM, TOTAL 8.4 mg/dL (8.8-10.5); CARBON DIOXIDE 30 mmol/L (22-29); CHLORIDE 101 mmol/L (98-107); CREATININE 1.03 mg/dL (0.60-1.30); GLOMERULAR FILTR. RATE CALC > 60 mL/min (>60); POTASSIUM 4.2 mmol/L (3.5-5.1); SODIUM SERUM 135 mmol/L (136-145); TOTAL PROTEIN, SERUM 7.1 g/dL (6.4-8.2); UREA NITROGEN, BLOOD 36 mg/dL (7-18)
[2019-08-17 05:16] LABS: GLUCOSE,RANDOM 432 mg/dL (70-110)
[2019-08-17 05:27] LABS: GLUCOSE,POINT OF CARE 389 MG/DL (70-110)
[2019-08-17 05:27] LABS: GLUCOSE,POINT OF CARE 314 MG/DL (70-110)
[2019-08-17 05:27] LABS: GLUCOSE,POINT OF CARE 342 MG/DL (70-110)
[2019-08-17] MEDS: FentaNYL CITRATE PF 500 MCG in DEXTROSE 5%-WATER 90 ML IV PRN ×2 (07:15→16:25)
[2019-08-17 08:00] VITALS: BP 135/82
[2019-08-17] MEDS: DOCUSATE SODIUM 100 MG/10 ML LIQUID UDCUP NG SCH (09:06)
[2019-08-17] MEDS: METOPROLOL TARTRATE 25 MG TABLET PO SCH (09:06)
[2019-08-17] MEDS: PANTOPRAZOLE SODIUM 40 MG/VIAL IVP SCH (09:07)
[2019-08-17] MEDS: INSULIN GLARGINE,HUM.REC.ANLOG 100 UNITS/ML SQ SCH (09:09)
[2019-08-17 12:00] VITALS: BP 132/76
[2019-08-17 12:32] LABS: GLUCOSE,POINT OF CARE 248 MG/DL (70-110)
[2019-08-17] MEDS: LORazepam 2 MG/ML VIAL IVP PRN (13:12)
[2019-08-17 16:00] VITALS: BP 161/105
[2019-08-18] MEDS: PROPOFOL 1000 MG/ISO-OSM 100 ML IV PRN ×4 (03:12→16:03)
[2019-08-18] MEDS: FentaNYL CITRATE PF 500 MCG in DEXTROSE 5%-WATER 90 ML IV PRN ×3 (03:27→22:03)
[2019-08-18] MEDS: HydrALAZINE HCL 20 MG/ML VIAL IVP PRN ×2 (03:27→11:08)
[2019-08-18] MEDS: IPRATROPIUM BROMIDE 0.5 MG/2.5 ML NEB SOLUTION NEB SCH ×6 (03:59→22:17)
[2019-08-18] MEDS: ALBUTEROL SULFATE 2.5 MG/0.5 ML NEB SOLUTION NEB SCH ×6 (03:59→22:17)
[2019-08-18 04:00] VITALS: BP 165/71
[2019-08-18] MEDS ORDERED: SODIUM CHLORIDE 0.9% 250 ML IV ONE (05:00)
[2019-08-18 05:14] LABS: BASOPHILS % (AUTO) 0.6 % (0.0-2.0); EOSINOPHILS % (AUTO) 0.2 % (1.0-6.0); HEMATOCRIT 40.9 % (41-53); HEMOGLOBIN 12.9 g/dL (13.5-17.5); LYMPHOCYTES # (AUTO) 1.1 K/uL (1.0-4.8); MEAN CORPUSCULAR HGB CONC 31.5 G/dL (31.0-37.0); MEAN CORPUSCULAR VOLUME 86 fL (80-100); MONOCYTES # (AUTO) 0.7 K/uL (0.1-1.0); NEUTROPHILS # (AUTO) 8.5 K/uL (1.8-7.7); NEUTROPHILS % (AUTO) 81.2 % (40.0-70.0); PLATELET COUNT (AUTO) 343 K/uL (150-450); RED BLOOD CELL COUNT(AUTO) 4.77 MIL/uL (4.50-5.90); RED CELL DISTRIBUTION WIDTH 20.1 % (11.5-14.5)
[2019-08-18] MEDS: MethylPREDNISolone SOD SUCC 125 MG/2 ML VIAL IVP SCH ×3 (05:14→18:17)
[2019-08-18] MEDS: INSULIN REGULAR, HUMAN 100 UNITS/ML SQ PRN ×2 (05:15→11:57)
[2019-08-18 05:28] LABS: ALANINE AMINOTRANSFERASE 18 U/L (12-78); ALBUMIN 2.2 g/dL (3.4-5.0); ALKALINE PHOSPHATASE 93 U/L (46-116); ANION GAP 6 mmol/L (8-16); ASPARTATE AMINOTRANSFERASE 26 U/L (15-37); BILIRUBIN,TOTAL 0.3 mg/dL (0.1-1.0); CALCIUM, TOTAL 8.9 mg/dL (8.8-10.5); CARBON DIOXIDE 31 mmol/L (22-29); CHLORIDE 105 mmol/L (98-107); CREATININE 0.88 mg/dL (0.60-1.30); GLOMERULAR FILTR. RATE CALC > 60 mL/min (>60); GLUCOSE,RANDOM 171 mg/dL (70-110); POTASSIUM 3.9 mmol/L (3.5-5.1); SODIUM SERUM 142 mmol/L (136-145); TOTAL PROTEIN, SERUM 7.1 g/dL (6.4-8.2); UREA NITROGEN, BLOOD 37 mg/dL (7-18)
[2019-08-18 07:50] LABS: GLUCOSE,POINT OF CARE 268 MG/DL (70-110)
[2019-08-18 07:50] LABS: GLUCOSE,POINT OF CARE 258 MG/DL (70-110)
[2019-08-18 07:50] LABS: GLUCOSE,POINT OF CARE 256 MG/DL (70-110)
[2019-08-18 07:50] LABS: GLUCOSE,POINT OF CARE 148 MG/DL (70-110)
[2019-08-18 08:00] VITALS: BP 160/104
[2019-08-18] MEDS: DOCUSATE SODIUM 100 MG/10 ML LIQUID UDCUP NG SCH ×2 (08:55→20:51)
[2019-08-18] MEDS: METOPROLOL TARTRATE 25 MG TABLET PO SCH ×2 (08:55→20:51)
[2019-08-18] MEDS: PANTOPRAZOLE SODIUM 40 MG/VIAL IVP SCH (08:56)
[2019-08-18] MEDS: HEPARIN SODIUM,PORCINE 5,000 UNITS/ML VIAL SQ SCH ×2 (08:56→16:02)
[2019-08-18] MEDS: LORazepam 2 MG/ML VIAL IVP PRN (08:57)
[2019-08-18] MEDS: INSULIN GLARGINE,HUM.REC.ANLOG 100 UNITS/ML SQ SCH ×2 (08:58→20:52)
[2019-08-18 09:15] LABS: GLUCOSE,POINT OF CARE 181 MG/DL (70-110)
[2019-08-18] MEDS: HALOPERIDOL LACTATE 5 MG/ML VIAL IVP PRN (11:24)
[2019-08-18 11:32] LABS: ABG A-A DIFF O2 150.4 mmHg (10-20.0); ABG BASE EXCESS 0.1 mmol/L (-2.0-3.0); ABG HCO3 23.8 mmol/L (22.0-26.0); ABG METHEMOGLOBIN 0.3 % (0.0-1.5); ABG OXYGEN CONTENT 18.7 mL/dL (15.0-23.0); ABG OXYGEN SATURATION 97.8 % (95.0-98.0); ABG OXYHEMOGLOBIN 96.5 % (94.0-100.0); ABG PCO2 54 mmHg (35-45); ABG PH 7.308 (7.350-7.450); ABG TOTAL HEMOGLOBIN 13.7 G/dL (12.0-18.0); PO2, ARTERIAL BG 109.3 mmHg (80.0-100.0); SOURCE, BLOOD GAS ARTERIAL; TEMPERATURE, FAHRENHEIT, BG 98.6 FAHREN (96.0-98.6)
[2019-08-18 11:33] LABS: CPAP, BG 0 cm H2O; O2 DEVICE,BLOOD GAS VENTILATOR (ROOM AIR); PEEP,BG 0 cm H2O; PRESSURE SUPPORT, BG 8 cm H2O; SITE, BLOOD GAS RT RADIAL; SPONTANEOUS VT, BG 420 ml; VENT MODE, BG SPONTANEOUS (ROOM AIR)
[2019-08-18 12:00] VITALS: BP 116/52
[2019-08-18 12:20] LABS: GLUCOSE,POINT OF CARE 191 MG/DL (70-110)
[2019-08-18 16:00] VITALS: BP 122/67
[2019-08-18 18:30] LABS: GLUCOSE,POINT OF CARE 99 MG/DL (70-110)
[2019-08-18 20:00] VITALS: BP 133/76
[2019-08-18] MEDS: LEVOFLOXACIN 750 MG/D5% WATER 150 ML IV SCH (22:03)
[2019-08-19] VITALS: BP 148/99
[2019-08-19] MEDS: MethylPREDNISolone SOD SUCC 125 MG/2 ML VIAL IVP SCH ×5 (00:30→23:50)
[2019-08-19] MEDS: HEPARIN SODIUM,PORCINE 5,000 UNITS/ML VIAL SQ SCH ×4 (00:30→23:50)
[2019-08-19] MEDS: INSULIN REGULAR, HUMAN 100 UNITS/ML SQ PRN ×3 (00:32→11:37)
[2019-08-19] MEDS: PROPOFOL 1000 MG/ISO-OSM 100 ML IV PRN ×3 (01:44→12:11)
[2019-08-19] MEDS: IPRATROPIUM BROMIDE 0.5 MG/2.5 ML NEB SOLUTION NEB SCH ×6 (02:36→22:45)
[2019-08-19] MEDS: ALBUTEROL SULFATE 2.5 MG/0.5 ML NEB SOLUTION NEB SCH ×6 (02:36→22:45)
[2019-08-19 04:00] VITALS: BP 157/99
[2019-08-19 05:48] LABS: BASOPHILS % (AUTO) 0.8 % (0.0-2.0); EOSINOPHILS % (AUTO) 0.1 % (1.0-6.0); HEMOGLOBIN 14.4 g/dL (13.5-17.5); LYMPHOCYTES # (AUTO) 2.8 K/uL (1.0-4.8); LYMPHOCYTES % (AUTO) 19.9 % (22.0-44.0); MEAN CORPUSCULAR HEMOGLOBIN 27.3 pg (26.0-34.0); MEAN CORPUSCULAR HGB CONC 31.4 G/dL (31.0-37.0); MEAN CORPUSCULAR VOLUME 87 fL (80-100); MONOCYTES # (AUTO) 1.4 K/uL (0.1-1.0); NEUTROPHILS # (AUTO) 9.8 K/uL (1.8-7.7); NEUTROPHILS % (AUTO) 69.2 % (40.0-70.0); PLATELET COUNT (AUTO) 431 K/uL (150-450); RED BLOOD CELL COUNT(AUTO) 5.29 MIL/uL (4.50-5.90); RED CELL DISTRIBUTION WIDTH 19.8 % (11.5-14.5)
[2019-08-19] MEDS: HydrALAZINE HCL 20 MG/ML VIAL IVP PRN (05:59)
[2019-08-19 06:00] LABS: ANION GAP 5 mmol/L (8-16); CALCIUM, TOTAL 8.9 mg/dL (8.8-10.5); CARBON DIOXIDE 32 mmol/L (22-29); CHLORIDE 107 mmol/L (98-107); CREATININE 0.99 mg/dL (0.60-1.30); GLOMERULAR FILTR. RATE CALC > 60 mL/min (>60); GLUCOSE,RANDOM 128 mg/dL (70-110); POTASSIUM 3.4 mmol/L (3.5-5.1); SODIUM SERUM 144 mmol/L (136-145); UREA NITROGEN, BLOOD 40 mg/dL (7-18)
[2019-08-19] MEDS: HALOPERIDOL LACTATE 5 MG/ML VIAL IVP PRN ×2 (06:03→10:12)
[2019-08-19 06:06] LABS: GLUCOSE,POINT OF CARE 144 MG/DL (70-110)
[2019-08-19] MEDS: FentaNYL CITRATE PF 500 MCG in DEXTROSE 5%-WATER 90 ML IV PRN (06:47)
[2019-08-19 08:00] VITALS: BP 132/85
[2019-08-19] MEDS: DOCUSATE SODIUM 100 MG/10 ML LIQUID UDCUP NG SCH ×2 (08:48→20:55)
[2019-08-19] MEDS: METOPROLOL TARTRATE 25 MG TABLET PO SCH ×2 (08:48→20:55)
[2019-08-19] MEDS: PANTOPRAZOLE SODIUM 40 MG/VIAL IVP SCH (08:48)
[2019-08-19] MEDS: INSULIN GLARGINE,HUM.REC.ANLOG 100 UNITS/ML SQ SCH ×2 (08:51→20:56)
[2019-08-19 11:20] LABS: GLUCOSE,POINT OF CARE 124 MG/DL (70-110)
[2019-08-19 11:20] LABS: GLUCOSE,POINT OF CARE 159 MG/DL (70-110)
[2019-08-19 12:00] VITALS: BP 132/75
[2019-08-19 12:44] LABS: GLUCOSE,POINT OF CARE 151 MG/DL (70-110)
[2019-08-19 16:00] VITALS: BP 155/87
[2019-08-19 16:17] LABS: ABG A-A DIFF O2 162.9 mmHg (10-20.0); ABG BASE EXCESS 6.9 mmol/L (-2.0-3.0); ABG CARBOXYHEMOGLOBIN 0.7 % (0.0-3.0); ABG HCO3 29.7 mmol/L (22.0-26.0); ABG METHEMOGLOBIN 0.4 % (0.0-1.5); ABG OXYGEN CONTENT 18.9 mL/dL (15.0-23.0); ABG OXYGEN SATURATION 97.8 % (95.0-98.0); ABG OXYHEMOGLOBIN 96.7 % (94.0-100.0); ABG PCO2 48 mmHg (35-45); ABG TOTAL HEMOGLOBIN 13.8 G/dL (12.0-18.0); CPAP, BG 5 cm H2O; O2 DEVICE,BLOOD GAS VENTILATOR (ROOM AIR); PO2, ARTERIAL BG 103.5 mmHg (80.0-100.0); PRESSURE SUPPORT, BG 8 cm H2O; SITE, BLOOD GAS LFT RADIAL; SOURCE, BLOOD GAS ARTERIAL; TEMPERATURE, FAHRENHEIT, BG 98.3 FAHREN (96.0-98.6); VENT MODE, BG CPAP (ROOM AIR)
[2019-08-19] MEDS: DEXTROSE 50%-WATER 25 GM/50 ML SYRINGE IVP PRN ×2 (18:55→23:50)
[2019-08-19 20:43] VITALS: BP 158/94
[2019-08-19] MEDS ORDERED: ONDANSETRON HCL 4 MG/2 ML VIAL ONE (22:48)
[2019-08-19] MEDS: LEVOFLOXACIN 750 MG/D5% WATER 150 ML IV SCH (22:49)
[2019-08-19] MEDS: ONDANSETRON HCL 4 MG/2 ML VIAL IVP PRN (22:50)
[2019-08-19 23:15] LABS: GLUCOSE,POINT OF CARE 62 MG/DL (70-110)
[2019-08-19 23:15] LABS: GLUCOSE,POINT OF CARE 102 MG/DL (70-110)
[2019-08-20] VITALS: BP 133/93
[2019-08-20] MEDS: HALOPERIDOL LACTATE 5 MG/ML VIAL IVP PRN (00:15)
[2019-08-20] MEDS ORDERED: SODIUM CHLORIDE 0.9% 250 ML IV ONE (00:29)
[2019-08-20] MEDS: ALBUTEROL SULFATE 2.5 MG/0.5 ML NEB SOLUTION NEB SCH ×6 (02:56→22:58)
[2019-08-20] MEDS: IPRATROPIUM BROMIDE 0.5 MG/2.5 ML NEB SOLUTION NEB SCH ×6 (02:56→22:58)
[2019-08-20] MEDS: HydrALAZINE HCL 20 MG/ML VIAL IVP PRN ×4 (03:06→20:14)
[2019-08-20 04:00] VITALS: BP 126/72
[2019-08-20] MEDS: MethylPREDNISolone SOD SUCC 125 MG/2 ML VIAL IVP SCH ×2 (05:09→11:48)
[2019-08-20 05:31] LABS: BASOPHILS % (AUTO) 0.7 % (0.0-2.0); EOSINOPHILS % (AUTO) 0.6 % (1.0-6.0); HEMOGLOBIN 12.8 g/dL (13.5-17.5); LYMPHOCYTES # (AUTO) 1.4 K/uL (1.0-4.8); LYMPHOCYTES % (AUTO) 15.5 % (22.0-44.0); MEAN CORPUSCULAR HEMOGLOBIN 26.7 pg (26.0-34.0); MEAN CORPUSCULAR HGB CONC 31.3 G/dL (31.0-37.0); MEAN CORPUSCULAR VOLUME 86 fL (80-100); MONOCYTES # (AUTO) 0.5 K/uL (0.1-1.0); MONOCYTES % (AUTO) 5.5 % (2.0-9.0); NEUTROPHILS # (AUTO) 7.1 K/uL (1.8-7.7); NEUTROPHILS % (AUTO) 77.7 % (40.0-70.0); PLATELET COUNT (AUTO) 372 K/uL (150-450); RED CELL DISTRIBUTION WIDTH 19.7 % (11.5-14.5)
[2019-08-20 05:45] LABS: ANION GAP 4 mmol/L (8-16); CALCIUM, TOTAL 8.5 mg/dL (8.8-10.5); CARBON DIOXIDE 33 mmol/L (22-29); CHLORIDE 110 mmol/L (98-107); CREATININE 0.99 mg/dL (0.60-1.30); GLOMERULAR FILTR. RATE CALC > 60 mL/min (>60); GLUCOSE,RANDOM 125 mg/dL (70-110); POTASSIUM 3.2 mmol/L (3.5-5.1); SODIUM SERUM 147 mmol/L (136-145); UREA NITROGEN, BLOOD 38 mg/dL (7-18)
[2019-08-20 07:23] LABS: GLUCOSE,POINT OF CARE 76 MG/DL (70-110)
[2019-08-20 07:23] LABS: GLUCOSE,POINT OF CARE 123 MG/DL (70-110)
[2019-08-20 08:00] VITALS: BP 170/107
[2019-08-20] MEDS: HEPARIN SODIUM,PORCINE 5,000 UNITS/ML VIAL SQ SCH ×3 (08:36→23:14)
[2019-08-20] MEDS: PANTOPRAZOLE SODIUM 40 MG/VIAL IVP SCH (08:37)
[2019-08-20] MEDS: METOPROLOL TARTRATE 25 MG TABLET PO SCH ×2 (08:38→20:10)
[2019-08-20] MEDS: DOCUSATE SODIUM 100 MG/10 ML LIQUID UDCUP NG SCH ×2 (08:38→20:10)
[2019-08-20] MEDS: INSULIN GLARGINE,HUM.REC.ANLOG 100 UNITS/ML SQ SCH ×2 (08:39→20:24)
[2019-08-20] MEDS: LORazepam 2 MG/ML VIAL IVP PRN ×3 (09:51→23:22)
[2019-08-20 12:00] VITALS: BP 142/87
[2019-08-20 16:00] VITALS: BP 147/102
[2019-08-20] MEDS ORDERED: IOVERSOL 320 MG/ML 100 ML VIAL ONE (17:01)
[2019-08-20] MEDS ORDERED: SODIUM CHLORIDE 0.9% 100 ML ONE (17:01)
[2019-08-20 17:26] LABS: GLUCOSE,POINT OF CARE 210 MG/DL (70-110)
[2019-08-20] MEDS: INSULIN REGULAR, HUMAN 100 UNITS/ML SQ PRN ×2 (18:18→23:35)
[2019-08-20] MEDS: MethylPREDNISolone SOD SUCC 40 MG/ML VIAL IVP SCH ×2 (18:30→23:14)
[2019-08-20 20:00] VITALS: BP 181/118
[2019-08-20] MEDS ORDERED: DEXTROSE 5%-WATER 250 ML IV ONE (20:28)
[2019-08-20] MEDS: LEVOFLOXACIN 750 MG/D5% WATER 150 ML IV SCH (22:07)
[2019-08-21] VITALS (7 sets, daily range): BP systolic 105–168; BP diastolic 78–116
[2019-08-21] MEDS: HydrALAZINE HCL 20 MG/ML VIAL IVP PRN ×3 (01:07→15:40)
[2019-08-21] MEDS: ALBUTEROL SULFATE 2.5 MG/0.5 ML NEB SOLUTION NEB SCH ×6 (03:49→23:00)
[2019-08-21] MEDS: IPRATROPIUM BROMIDE 0.5 MG/2.5 ML NEB SOLUTION NEB SCH ×6 (03:49→23:00)
[2019-08-21] MEDS: LORazepam 2 MG/ML VIAL IVP PRN ×3 (03:57→16:06)
[2019-08-21] MEDS: INSULIN REGULAR, HUMAN 100 UNITS/ML SQ PRN ×2 (05:05→23:49)
[2019-08-21 05:10] LABS: ANION GAP 5 mmol/L (8-16); CALCIUM, TOTAL 8.7 mg/dL (8.8-10.5); CARBON DIOXIDE 32 mmol/L (22-29); CHLORIDE 111 mmol/L (98-107); CREATININE 0.91 mg/dL (0.60-1.30); GLOMERULAR FILTR. RATE CALC > 60 mL/min (>60); GLUCOSE,RANDOM 149 mg/dL (70-110); POTASSIUM 3.3 mmol/L (3.5-5.1); SODIUM SERUM 148 mmol/L (136-145); UREA NITROGEN, BLOOD 34 mg/dL (7-18)
[2019-08-21 05:11] LABS: BASOPHILS % (AUTO) 1.3 % (0.0-2.0); EOSINOPHILS % (AUTO) 0.1 % (1.0-6.0); HEMATOCRIT 41.3 % (41-53); HEMOGLOBIN 12.8 g/dL (13.5-17.5); LYMPHOCYTES # (AUTO) 1.9 K/uL (1.0-4.8); LYMPHOCYTES % (AUTO) 20.5 % (22.0-44.0); MEAN CORPUSCULAR HEMOGLOBIN 26.6 pg (26.0-34.0); MEAN CORPUSCULAR VOLUME 86 fL (80-100); MONOCYTES # (AUTO) 0.8 K/uL (0.1-1.0); MONOCYTES % (AUTO) 8.9 % (2.0-9.0); NEUTROPHILS # (AUTO) 6.3 K/uL (1.8-7.7); NEUTROPHILS % (AUTO) 69.2 % (40.0-70.0); PLATELET COUNT (AUTO) 410 K/uL (150-450); RED BLOOD CELL COUNT(AUTO) 4.81 MIL/uL (4.50-5.90); RED CELL DISTRIBUTION WIDTH 19.7 % (11.5-14.5)
[2019-08-21] MEDS: MethylPREDNISolone SOD SUCC 40 MG/ML VIAL IVP SCH ×4 (05:21→23:53)
[2019-08-21 07:12] LABS: GLUCOSE,POINT OF CARE 236 MG/DL (70-110)
[2019-08-21 07:12] LABS: GLUCOSE,POINT OF CARE 247 MG/DL (70-110)
[2019-08-21 07:12] LABS: GLUCOSE,POINT OF CARE 185 MG/DL (70-110)
[2019-08-21 07:12] LABS: GLUCOSE,POINT OF CARE 150 MG/DL (70-110)
[2019-08-21 07:13] LABS: GLUCOSE,POINT OF CARE 137 MG/DL (70-110)
[2019-08-21] MEDS: METOPROLOL TARTRATE 25 MG TABLET PO SCH ×3 (08:20→20:41)
[2019-08-21] MEDS: PANTOPRAZOLE SODIUM 40 MG/VIAL IVP SCH (08:20)
[2019-08-21] MEDS: HEPARIN SODIUM,PORCINE 5,000 UNITS/ML VIAL SQ SCH ×3 (08:20→23:52)
[2019-08-21] MEDS: DOCUSATE SODIUM 100 MG/10 ML LIQUID UDCUP NG SCH ×2 (08:21→20:42)
[2019-08-21] MEDS: INSULIN GLARGINE,HUM.REC.ANLOG 100 UNITS/ML SQ SCH ×2 (08:39→21:00)
[2019-08-21] MEDS ORDERED: POTASSIUM CHLORIDE 20 MEQ ER TABLET PO PRN ×2 (09:00)
[2019-08-21] MEDS ORDERED: POTASSIUM CHL 10 MEQ/WATER 50 ML IV PRN (09:00)
[2019-08-21] MEDS ORDERED: METOPROLOL TARTRATE 5 MG/5 ML VIAL IVP PRN ×2 (09:15→21:15)
[2019-08-21] MEDS: POTASSIUM CHL 10 MEQ/WATER 50 ML IV PRN ×3 (09:17→10:52)
[2019-08-21 13:54] LABS: GLUCOSE,POINT OF CARE 121 MG/DL (70-110)
[2019-08-21] MEDS: SODIUM CHLORIDE 0.45% 1,000 ML IV SCH (15:41)
[2019-08-21 18:26] LABS: ANION GAP 7 mmol/L (8-16); CALCIUM, TOTAL 8.5 mg/dL (8.8-10.5); CARBON DIOXIDE 30 mmol/L (22-29); CHLORIDE 110 mmol/L (98-107); CREATININE 0.74 mg/dL (0.60-1.30); GLOMERULAR FILTR. RATE CALC > 60 mL/min (>60); GLUCOSE,RANDOM 176 mg/dL (70-110); POTASSIUM 3.8 mmol/L (3.5-5.1); SODIUM SERUM 147 mmol/L (136-145); UREA NITROGEN, BLOOD 28 mg/dL (7-18)
[2019-08-21 20:18] LABS: GLUCOMETER DEV NAME(LOC) 5N.2; GLUCOSE,POINT OF CARE 174 MG/DL (70-110)
[2019-08-21] MEDS: ACETAMINOPHEN 325 MG TABLET PO PRN (20:41)
[2019-08-21] MEDS: LEVOFLOXACIN 750 MG/D5% WATER 150 ML IV SCH (23:52)
[2019-08-22] VITALS: BP 166/110
[2019-08-22] MEDS: HydrALAZINE HCL 20 MG/ML VIAL IVP PRN ×2 (00:01→10:38)
[2019-08-22] MEDS: LORazepam 2 MG/ML VIAL IVP PRN ×4 (00:44→17:27)
[2019-08-22 01:00] LABS: GLUCOMETER DEV NAME(LOC) 5S.1; GLUCOSE,POINT OF CARE 164 MG/DL (70-110)
[2019-08-22] MEDS: ONDANSETRON HCL 4 MG/2 ML VIAL IVP PRN (01:49)
[2019-08-22] MEDS: IPRATROPIUM BROMIDE 0.5 MG/2.5 ML NEB SOLUTION NEB SCH ×6 (03:00→23:00)
[2019-08-22] MEDS: ALBUTEROL SULFATE 2.5 MG/0.5 ML NEB SOLUTION NEB SCH ×6 (03:00→23:00)
[2019-08-22 05:06] VITALS: BP 159/106
[2019-08-22] MEDS: CloNIDine HCL 0.1 MG TABLET PO PRN (05:29)
[2019-08-22] MEDS: SODIUM CHLORIDE 0.45% 1,000 ML IV SCH (05:33)
[2019-08-22] MEDS: INSULIN REGULAR, HUMAN 100 UNITS/ML SQ PRN ×4 (05:45→20:29)
[2019-08-22 06:42] LABS: BASOPHILS % (AUTO) 0.7 % (0.0-2.0); EOSINOPHILS % (AUTO) 0 % (1.0-6.0); HEMATOCRIT 40.7 % (41-53); HEMOGLOBIN 13.1 g/dL (13.5-17.5); LYMPHOCYTES # (AUTO) 1.4 K/uL (1.0-4.8); LYMPHOCYTES % (AUTO) 19.9 % (22.0-44.0); MEAN CORPUSCULAR HEMOGLOBIN 27.8 pg (26.0-34.0); MEAN CORPUSCULAR HGB CONC 32.2 G/dL (31.0-37.0); MEAN CORPUSCULAR VOLUME 86 fL (80-100); MONOCYTES # (AUTO) 0.4 K/uL (0.1-1.0); MONOCYTES % (AUTO) 5.4 % (2.0-9.0); NEUTROPHILS # (AUTO) 5.3 K/uL (1.8-7.7); PLATELET COUNT (AUTO) 428 K/uL (150-450); RED BLOOD CELL COUNT(AUTO) 4.72 MIL/uL (4.50-5.90); RED CELL DISTRIBUTION WIDTH 19.7 % (11.5-14.5)
[2019-08-22 06:54] LABS: ALANINE AMINOTRANSFERASE 20 U/L (12-78); ALBUMIN 2.4 g/dL (3.4-5.0); ALKALINE PHOSPHATASE 85 U/L (46-116); ANION GAP 6 mmol/L (8-16); ASPARTATE AMINOTRANSFERASE 31 U/L (15-37); BILIRUBIN,TOTAL 0.9 mg/dL (0.1-1.0); CALCIUM, TOTAL 8.9 mg/dL (8.8-10.5); CARBON DIOXIDE 29 mmol/L (22-29); CHLORIDE 108 mmol/L (98-107); CREATININE 0.87 mg/dL (0.60-1.30); GLOMERULAR FILTR. RATE CALC > 60 mL/min (>60); GLUCOSE,RANDOM 354 mg/dL (70-110); POTASSIUM 4.2 mmol/L (3.5-5.1); SODIUM SERUM 143 mmol/L (136-145); TOTAL PROTEIN, SERUM 6.9 g/dL (6.4-8.2); UREA NITROGEN, BLOOD 27 mg/dL (7-18)
[2019-08-22 07:26] VITALS: BP 153/104
[2019-08-22] MEDS: DOCUSATE SODIUM 100 MG/10 ML LIQUID UDCUP NG SCH ×2 (07:26→20:24)
[2019-08-22] MEDS: HEPARIN SODIUM,PORCINE 5,000 UNITS/ML VIAL SQ SCH ×3 (08:07→23:57)
[2019-08-22] MEDS: PANTOPRAZOLE SODIUM 40 MG/VIAL IVP SCH (08:07)
[2019-08-22] MEDS: METOPROLOL TARTRATE 25 MG TABLET PO SCH ×2 (08:07→20:23)
[2019-08-22] MEDS: MethylPREDNISolone SOD SUCC 40 MG/ML VIAL IVP SCH ×2 (08:07→20:24)
[2019-08-22] MEDS: INSULIN GLARGINE,HUM.REC.ANLOG 100 UNITS/ML SQ SCH ×2 (08:10→20:25)
[2019-08-22 10:35] VITALS: BP 160/110
[2019-08-22 12:54] LABS: GLUCOSE,POINT OF CARE 74 MG/DL (70-110)
[2019-08-22] MEDS: NICOTINE 14 MG/24 HOUR PATCH TD SCH (13:37)
[2019-08-22 14:40] VITALS: BP 158/98
[2019-08-22] MEDS: LISINOPRIL 5 MG TABLET PO SCH ×2 (16:04→20:23)
[2019-08-22 19:27] VITALS: BP 157/100
[2019-08-22 19:50] LABS: GLUCOMETER DEV NAME(LOC) 5S.1; GLUCOSE,POINT OF CARE 238 MG/DL (70-110)
[2019-08-22 19:50] LABS: GLUCOMETER DEV NAME(LOC) 5S.1; GLUCOSE,POINT OF CARE 225 MG/DL (70-110)
[2019-08-22 19:50] LABS: GLUCOMETER DEV NAME(LOC) 5S.1; GLUCOSE,POINT OF CARE 314 MG/DL (70-110)
[2019-08-22] MEDS: LEVOFLOXACIN 750 MG/D5% WATER 150 ML IV SCH (22:57)
[2019-08-23] MEDS: LORazepam 2 MG/ML VIAL IVP PRN ×3 (00:01→18:21)
[2019-08-23] MEDS: IPRATROPIUM BROMIDE 0.5 MG/2.5 ML NEB SOLUTION NEB SCH ×6 (03:00→23:00)
[2019-08-23] MEDS: ALBUTEROL SULFATE 2.5 MG/0.5 ML NEB SOLUTION NEB SCH ×6 (03:00→23:00)
[2019-08-23 04:43] LABS: GLUCOMETER DEV NAME(LOC) 5N.2; GLUCOSE,POINT OF CARE 295 MG/DL (70-110)
[2019-08-23 04:44] LABS: GLUCOMETER DEV NAME(LOC) 5N.2; GLUCOSE,POINT OF CARE 354 MG/DL (70-110)
[2019-08-23 05:19] VITALS: BP 155/100
[2019-08-23] MEDS: DEXTROSE 50%-WATER 25 GM/50 ML SYRINGE IVP PRN (06:02)
[2019-08-23 06:17] LABS: BASOPHILS % (AUTO) 1.2 % (0.0-2.0); EOSINOPHILS % (AUTO) 0.4 % (1.0-6.0); HEMATOCRIT 42.4 % (41-53); HEMOGLOBIN 13.6 g/dL (13.5-17.5); LYMPHOCYTES # (AUTO) 3.7 K/uL (1.0-4.8); LYMPHOCYTES % (AUTO) 27.4 % (22.0-44.0); MEAN CORPUSCULAR HEMOGLOBIN 27.1 pg (26.0-34.0); MEAN CORPUSCULAR VOLUME 85 fL (80-100); MONOCYTES # (AUTO) 0.9 K/uL (0.1-1.0); MONOCYTES % (AUTO) 6.4 % (2.0-9.0); NEUTROPHILS # (AUTO) 8.7 K/uL (1.8-7.7); NEUTROPHILS % (AUTO) 64.6 % (40.0-70.0); PLATELET COUNT (AUTO) 445 K/uL (150-450); RED CELL DISTRIBUTION WIDTH 19.2 % (11.5-14.5)
[2019-08-23 06:37] LABS: ANION GAP 6 mmol/L (8-16); CALCIUM, TOTAL 8.8 mg/dL (8.8-10.5); CARBON DIOXIDE 28 mmol/L (22-29); CHLORIDE 105 mmol/L (98-107); CREATININE 0.83 mg/dL (0.60-1.30); GLOMERULAR FILTR. RATE CALC > 60 mL/min (>60); POTASSIUM 3.8 mmol/L (3.5-5.1); SODIUM SERUM 139 mmol/L (136-145); UREA NITROGEN, BLOOD 23 mg/dL (7-18)
[2019-08-23 06:47] LABS: GLUCOSE,RANDOM 34 mg/dL (70-110)
[2019-08-23 07:21] VITALS: BP 139/105
[2019-08-23 07:47] LABS: GLUCOMETER DEV NAME(LOC) 5N.2; GLUCOSE,POINT OF CARE 106 MG/DL (70-110)
[2019-08-23 07:47] LABS: GLUCOMETER DEV NAME(LOC) 5N.2; GLUCOSE,POINT OF CARE 30 MG/DL (70-110)
[2019-08-23] MEDS: DOCUSATE SODIUM 100 MG/10 ML LIQUID UDCUP NG SCH ×2 (08:45→20:08)
[2019-08-23] MEDS: HEPARIN SODIUM,PORCINE 5,000 UNITS/ML VIAL SQ SCH ×3 (08:45→23:35)
[2019-08-23] MEDS: INSULIN GLARGINE,HUM.REC.ANLOG 100 UNITS/ML SQ SCH ×2 (08:46→20:17)
[2019-08-23] MEDS: MethylPREDNISolone SOD SUCC 40 MG/ML VIAL IVP SCH ×2 (08:46→20:02)
[2019-08-23] MEDS: LISINOPRIL 5 MG TABLET PO SCH ×2 (08:46→20:02)
[2019-08-23] MEDS: NICOTINE 14 MG/24 HOUR PATCH TD SCH ×2 (08:46→09:34)
[2019-08-23] MEDS: PANTOPRAZOLE SODIUM 40 MG/VIAL IVP SCH (08:46)
[2019-08-23] MEDS: METOPROLOL TARTRATE 25 MG TABLET PO SCH ×2 (08:46→20:02)
[2019-08-23 11:04] VITALS: BP 146/99
[2019-08-23 11:52] LABS: GLUCOMETER DEV NAME(LOC) 5N.2; GLUCOSE,POINT OF CARE 167 MG/DL (70-110)
[2019-08-23 11:52] LABS: GLUCOMETER DEV NAME(LOC) 5N.2; GLUCOSE,POINT OF CARE 61 MG/DL (70-110)
[2019-08-23] MEDS: INSULIN REGULAR, HUMAN 100 UNITS/ML SQ PRN (13:09)
[2019-08-23 16:28] VITALS: BP 138/100
[2019-08-23 17:39] LABS: GLUCOMETER DEV NAME(LOC) 5N.2; GLUCOSE,POINT OF CARE 307 MG/DL (70-110)
[2019-08-23] MEDS ORDERED: DEXTROSE 50%-WATER 25 GM/50 ML SYRINGE IVP PRN (18:00)
[2019-08-23] MEDS ORDERED: INSULIN LISPRO 100 UNITS/ML SQ ONE (18:15)
[2019-08-23] MEDS: INSULIN LISPRO 100 UNITS/ML SQ PRN (20:19)
[2019-08-23 21:15] VITALS: BP 152/97
[2019-08-23 23:07] VITALS: BP 150/98
[2019-08-23] MEDS: LEVOFLOXACIN 750 MG/D5% WATER 150 ML IV SCH (23:35)
[2019-08-24] MEDS: LORazepam 2 MG/ML VIAL IVP PRN ×3 (01:49→21:13)
[2019-08-24] MEDS: ALBUTEROL SULFATE 2.5 MG/0.5 ML NEB SOLUTION NEB SCH ×6 (03:00→23:00)
[2019-08-24] MEDS: IPRATROPIUM BROMIDE 0.5 MG/2.5 ML NEB SOLUTION NEB SCH ×6 (03:00→23:00)
[2019-08-24 04:51] VITALS: BP 152/95
[2019-08-24] MEDS: INSULIN LISPRO 100 UNITS/ML SQ PRN ×4 (06:48→22:30)
[2019-08-24 07:39] VITALS: BP 166/115
[2019-08-24] MEDS: PANTOPRAZOLE SODIUM 40 MG/VIAL IVP SCH (08:08)
[2019-08-24] MEDS: HEPARIN SODIUM,PORCINE 5,000 UNITS/ML VIAL SQ SCH ×3 (08:08→23:49)
[2019-08-24] MEDS: MethylPREDNISolone SOD SUCC 40 MG/ML VIAL IVP SCH (08:09)
[2019-08-24] MEDS: NICOTINE 14 MG/24 HOUR PATCH TD SCH (08:09)
[2019-08-24] MEDS: DOCUSATE SODIUM 100 MG/10 ML LIQUID UDCUP NG SCH ×2 (08:09→21:00)
[2019-08-24] MEDS: LISINOPRIL 5 MG TABLET PO SCH ×2 (08:09→21:12)
[2019-08-24] MEDS: METOPROLOL TARTRATE 25 MG TABLET PO SCH ×2 (08:09→21:12)
[2019-08-24] MEDS: PredniSONE 20 MG TABLET PO SCH (08:09)
[2019-08-24] MEDS: INSULIN GLARGINE,HUM.REC.ANLOG 100 UNITS/ML SQ SCH ×2 (08:21→22:29)
[2019-08-24 12:00] VITALS: BP 131/82
[2019-08-24 12:55] LABS: GLUCOMETER DEV NAME(LOC) 5N.2; GLUCOSE,POINT OF CARE 171 MG/DL (70-110)
[2019-08-24 16:15] VITALS: BP 165/114
[2019-08-24] MEDS: HydrALAZINE HCL 20 MG/ML VIAL IVP PRN (16:23)
[2019-08-24 18:32] LABS: GLUCOMETER DEV NAME(LOC) 5N.2; GLUCOSE,POINT OF CARE 514 MG/DL (70-110)
[2019-08-24 18:49] VITALS: BP 142/80
[2019-08-24] MEDS ORDERED: INSULIN GLARGINE,HUM.REC.ANLOG 100 UNITS/ML SQ ONE (19:45)
[2019-08-24 20:26] LABS: GLUCOMETER DEV NAME(LOC) 5S.1; GLUCOSE,POINT OF CARE 458 MG/DL (70-110)
[2019-08-24 20:26] LABS: GLUCOMETER DEV NAME(LOC) 5S.1; GLUCOSE,POINT OF CARE 568 MG/DL (70-110)
[2019-08-24 20:27] LABS: GLUCOMETER DEV NAME(LOC) 5S.1; GLUCOSE,POINT OF CARE 287 MG/DL (70-110)
[2019-08-24 20:27] LABS: GLUCOMETER DEV NAME(LOC) 5S.1; GLUCOSE,POINT OF CARE 318 MG/DL (70-110)
[2019-08-24 20:30] VITALS: BP 115/59
[2019-08-24] MEDS: ACETAMINOPHEN 325 MG TABLET PO PRN (22:36)
[2019-08-24 23:14] LABS: GLUCOMETER DEV NAME(LOC) 5N.2; GLUCOSE,POINT OF CARE 591 MG/DL (70-110)
[2019-08-25] MEDS: LORazepam 2 MG/ML VIAL IVP PRN ×2 (02:04→07:59)
[2019-08-25] MEDS: IPRATROPIUM BROMIDE 0.5 MG/2.5 ML NEB SOLUTION NEB SCH ×4 (03:00→15:00)
[2019-08-25] MEDS: ALBUTEROL SULFATE 2.5 MG/0.5 ML NEB SOLUTION NEB SCH ×4 (03:00→15:00)
[2019-08-25 04:31] VITALS: BP 147/86
[2019-08-25] MEDS: INSULIN LISPRO 100 UNITS/ML SQ PRN (06:44)
[2019-08-25] MEDS: HEPARIN SODIUM,PORCINE 5,000 UNITS/ML VIAL SQ SCH (08:00)
[2019-08-25] MEDS: PANTOPRAZOLE SODIUM 40 MG/VIAL IVP SCH (08:00)
[2019-08-25] MEDS: PredniSONE 20 MG TABLET PO SCH (08:07)
[2019-08-25] MEDS: LISINOPRIL 5 MG TABLET PO SCH (08:07)
[2019-08-25] MEDS: DOCUSATE SODIUM 100 MG/10 ML LIQUID UDCUP NG SCH (08:07)
[2019-08-25] MEDS: METOPROLOL TARTRATE 25 MG TABLET PO SCH (08:07)
[2019-08-25] MEDS: NICOTINE 14 MG/24 HOUR PATCH TD SCH (08:11)
[2019-08-25 08:16] VITALS: BP 146/93
[2019-08-25] MEDS: INSULIN GLARGINE,HUM.REC.ANLOG 100 UNITS/ML SQ SCH (09:40)
[2019-08-25 12:11] LABS: GLUCOMETER DEV NAME(LOC) 5N.2; GLUCOSE,POINT OF CARE 289 MG/DL (70-110)
[2019-08-25 12:17] LABS: GLUCOMETER DEV NAME(LOC) 5N.1; GLUCOSE,POINT OF CARE 114 MG/DL (70-110)
[2019-08-25] MEDS ORDERED: LEVOFLOXACIN 250 MG TABLET PO ONE (13:00)
[2019-08-25 13:29] VITALS: BP 125/78
[2019-08-25] MEDS ORDERED: INSLAN SQ ×2 (15:02)
[2019-08-25] MEDS ORDERED: ALBU8HFA IH (15:06)
[2019-08-25] MEDS ORDERED: LISI-660 PO (15:08)
[2019-08-25] MEDS ORDERED: OMEP20 PO (15:09)
[2019-08-25] MEDS ORDERED: PRED20 PO (15:16)
[2019-08-25] MEDS ORDERED: INSULIN GLARGINE,HUM.REC.ANLOG 100 UNITS/ML SQ SCH (21:00)
[2019-08-26] MEDS ORDERED: INSULIN GLARGINE,HUM.REC.ANLOG 100 UNITS/ML SQ SCH (09:00)
== END 2019-08-25 16:10 | disposition home health service (06) | DRG 130 ==
LOC: EMS 20:36 → ICU 23:16 → 5N 08-21 13:50
PROVIDERS: ADMIT Internal Medicine; ATTEND Internal Medicine
PROC: 5A1955Z Respiratory Ventilation, Greater than 96 Consecutive Hours (ICD-10-PCS; principal; 2019-08-08)
PROC: 0BH17EZ Insertion of Endotracheal Airway into Trachea, Via Natural or Artificial Opening (ICD-10-PCS; 2019-08-08)
DX: J96.00 Acute respiratory failure, unspecified whether with hypoxia or hypercapnia (principal); J69.0 Pneumonitis due to inhalation of food and vomit; G92 Toxic encephalopathy; N17.9 Acute kidney failure, unspecified; K31.84 Gastroparesis; E11.43 Type 2 diabetes mellitus with diabetic autonomic (poly)neuropathy; D69.6 Thrombocytopenia, unspecified; E11.649 Type 2 diabetes mellitus with hypoglycemia without coma; I10 Essential (primary) hypertension; J44.9 Chronic obstructive pulmonary disease, unspecified; Z87.891 Personal history of nicotine dependence; Z91.11 Patient's noncompliance with dietary regimen; Z79.899 Other long term (current) drug therapy
CPT/HCPCS: 31500; 36600; 70450; 70491; 71250; 72125; 82805; 82947; 83605; 83735; 84132; 87040; 87070; 87081; 87205; 92526; 92610; 93005; 94002; 94003; 94640; 97116; 97162; 97167; 97530; 97535; 99291; C9113; G0378; J0330; J0360; J1630; J1644; J1815; J1956; J2060; J2405; J2704; J2920; J2930; J3010; J3475; J3480; J3490; J7030; J7042; J7050; J7060

== ENCOUNTER 2020-02-11 03:18 | Inpatient (IN) | payer OTHER ==
[~2020-02-11] VITALS: Ht 165.1 cm; Wt 71.6 kg
[~2020-02-11 03:18] MED LIST changes: -ACET-2247 PO; +ALBU8HFA IH; -BUME1TAB34 PO; -ERGO500014 PO; -ETOMIDATE 2 MG/ML 10 ML VIAL IV ONE; -GABA-531 PO; +INSLAN SQ; -INSU100I26 SQ; +LISI-660 PO; -LOSA25TA41 PO; -METH10 PO; -METR500 PO; -MULT-248 PO; -NYST15PO3 TP; +OMEP20 PO; -PANT40TA25 PO; +PRED20 PO; -ROCURONIUM BROMIDE 10 MG/ML 5 ML VIAL IV ONE; -VANC750P8 IV
[2020-02-11 04:56] LABS: GLUCOSE,POINT OF CARE 486 MG/DL (70-110)
[2020-02-11 06:02] LABS: BASOPHILS % (AUTO) 0.3 % (0.0-2.0); EOSINOPHILS % (AUTO) 0 % (1.0-6.0); HEMATOCRIT 23.7 % (41-53); HEMOGLOBIN 7.3 g/dL (13.5-17.5); LYMPHOCYTES # (AUTO) 2.4 K/uL (1.0-4.8); LYMPHOCYTES % (AUTO) 9.7 % (22.0-44.0); MEAN CORPUSCULAR HEMOGLOBIN 26.2 pg (26.0-34.0); MEAN CORPUSCULAR HGB CONC 30.8 G/dL (31.0-37.0); MEAN CORPUSCULAR VOLUME 85 fL (80-100); MONOCYTES # (AUTO) 1.6 K/uL (0.1-1.0); MONOCYTES % (AUTO) 6.3 % (2.0-9.0); NEUTROPHILS # (AUTO) 20.6 K/uL (1.8-7.7); NEUTROPHILS % (AUTO) 83.7 % (40.0-70.0); PLATELET COUNT (AUTO) 694 K/uL (150-450); RED BLOOD CELL COUNT(AUTO) 2.78 MIL/uL (4.50-5.90); RED CELL DISTRIBUTION WIDTH 14.5 % (11.5-14.5)
[2020-02-11] MEDS ORDERED: SODIUM CHLORIDE 0.9% 2,200 ML IV ONE (06:15)
[2020-02-11 06:20] LABS: LACTIC ACID 6.6 mmol/L (0.4-2.0)
[2020-02-11 06:24] LABS: ANION GAP 21 mmol/L (8-16); CALCIUM, TOTAL 9.1 mg/dL (8.8-10.5); CARBON DIOXIDE 20 mmol/L (22-29); CHLORIDE 87 mmol/L (98-107); CREATINE KINASE, TOTAL ONLY 39 U/L (39-308); CREATININE 2.67 mg/dL (0.60-1.30); GLOMERULAR FILTR. RATE CALC 35 mL/min (>60); POTASSIUM 3.9 mmol/L (3.5-5.1); SODIUM SERUM 128 mmol/L (136-145); THYROID STIMULATING HORMONE 5.91 uIU/mL (0.36-3.74); UREA NITROGEN, BLOOD 86 mg/dL (7-18)
[2020-02-11 06:28] LABS: GLUCOSE,RANDOM 459 mg/dL (70-110)
[2020-02-11 06:33] LABS: ACETONE,BLOOD 1:16 (NEGATIVE)
[2020-02-11] MEDS ORDERED: VANCOMYCIN HCL 1 GM/D5% WATER 200 ML IV ONE (06:45)
[2020-02-11] MEDS ORDERED: PIPERACILLIN/TAZO 3.375 GM/D5W 50 ML IV ONE (06:45)
[2020-02-11] MEDS ORDERED: INSULIN REGULAR, HUMAN 100 UNITS in SODIUM CHLORIDE 0.9% 99 ML IV PRN ×4 (06:59→11:07)
[2020-02-11] MEDS ORDERED: DEXTROSE 50%-WATER 25 GM/50 ML SYRINGE IVP PRN ×2 (07:00→11:15)
[2020-02-11] MEDS ORDERED: POTASSIUM CHLORIDE 20 MEQ in DEXTROSE 5%-LACTATED RINGERS 1,000 ML IV ONE (07:00)
[2020-02-11] MEDS ORDERED: CLINDAMYCIN 900 MG/D5% WATER 50 ML IV ONE (07:15)
[2020-02-11] MEDS ORDERED: POTASSIUM CHLORIDE 20 MEQ in DEXTROSE 5%-WATER 1,000 ML IV SCH (07:15)
[2020-02-11] MEDS ORDERED: ONDANSETRON HCL 4 MG/2 ML VIAL IVP PRN (08:30)
[2020-02-11] MEDS ORDERED: 0.9% SODIUM CHLORIDE 10 ML SYRINGE IVP PRN (08:30)
[2020-02-11] MEDS ORDERED: ACETAMINOPHEN 325 MG TABLET PO PRN (08:30)
[2020-02-11] MEDS ORDERED: NOREPINEPHRINE 4 MG/D5%-WATER 250 ML IV PRN ×2 (08:30→21:00)
[2020-02-11 09:46] LABS: ERYTHROCYTE SEDIMENTATION RATE 112 MM/HR (0-15)
[2020-02-11 11:01] LABS: GLUCOSE,POINT OF CARE 255 MG/DL (70-110)
[2020-02-11] MEDS ORDERED: SODIUM CHLORIDE 0.9% 1,000 ML IV SCH (11:07)
[2020-02-11] MEDS ORDERED: POTASSIUM CHLORIDE 40 MEQ in SODIUM CHLORIDE 0.45% 1,000 ML IV PRN (11:07)
[2020-02-11] MEDS ORDERED: SODIUM CHLORIDE 0.45% 1,000 ML IV PRN (11:07)
[2020-02-11] MEDS ORDERED: POTASSIUM CHL 20 MEQ/0.45% NS 1,000 ML IV PRN (11:07)
[2020-02-11] MEDS ORDERED: DEXTROSE 5%-0.45% SODIUM CHL 1,000 ML IV PRN (11:07)
[2020-02-11] MEDS ORDERED: INSULIN REGULAR, HUMAN 100 UNITS/ML IVP ONE (11:15)
[2020-02-11] MEDS ORDERED: ALBUTEROL SULFATE HFA 90 MCG/PUFF 8 GM INHALER IH PRN ×2 (11:15→15:30)
[2020-02-11] MEDS ORDERED: INSULIN REGULAR, HUMAN 100 UNITS/ML IVP PRN (11:15)
[2020-02-11 11:53] LABS: BASOPHILS % (AUTO) 0.6 % (0.0-2.0); EOSINOPHILS % (AUTO) 0 % (1.0-6.0); HEMATOCRIT 22.7 % (41-53); HEMOGLOBIN 7.3 g/dL (13.5-17.5); LYMPHOCYTES # (AUTO) 3.2 K/uL (1.0-4.8); LYMPHOCYTES % (AUTO) 11.1 % (22.0-44.0); MEAN CORPUSCULAR HEMOGLOBIN 26.6 pg (26.0-34.0); MEAN CORPUSCULAR HGB CONC 32.3 G/dL (31.0-37.0); MEAN CORPUSCULAR VOLUME 82 fL (80-100); MONOCYTES # (AUTO) 0.7 K/uL (0.1-1.0); MONOCYTES % (AUTO) 2.4 % (2.0-9.0); NEUTROPHILS # (AUTO) 24.8 K/uL (1.8-7.7); RED BLOOD CELL COUNT(AUTO) 2.75 MIL/uL (4.50-5.90); RED CELL DISTRIBUTION WIDTH 14.7 % (11.5-14.5)
[2020-02-11 12:08] LABS: GLUCOSE,POINT OF CARE 186 MG/DL (70-110)
[2020-02-11 12:34] LABS: NEUTROPHILS % (AUTO) 85.9 % (40.0-70.0); PLATELET COUNT (AUTO) 755 K/uL (150-450)
[2020-02-11 12:57] LABS: CALCIUM, TOTAL 8.2 mg/dL (8.8-10.5); CREATININE 2.16 mg/dL (0.60-1.30); POTASSIUM 3.6 mmol/L (3.5-5.1)
[2020-02-11 13:25] LABS: GLUCOSE,POINT OF CARE 119 MG/DL (70-110)
[2020-02-11 13:44] LABS: GLUCOSE,POINT OF CARE 247 MG/DL (70-110)
[2020-02-11 14:42] LABS: GLUCOSE,POINT OF CARE 55 MG/DL (70-110)
[2020-02-11] MEDS ORDERED: SODIUM CHLORIDE 0.9% 1,000 ML IV ONE (14:45)
[2020-02-11 14:56] LABS: CALCIUM, TOTAL 8.1 mg/dL (8.8-10.5); CREATININE 2.18 mg/dL (0.60-1.30); POTASSIUM 3.5 mmol/L (3.5-5.1)
[2020-02-11] MEDS: MORPHINE SULFATE 2 MG/ML SYRINGE IVP PRN ×2 (14:57→22:54)
[2020-02-11] MEDS: PIPERACILLIN SODIUM/TAZOBACTAM 2.25 GM in DEXTROSE 5%-WATER 50 ML IV SCH ×2 (14:57→21:19)
[2020-02-11 15:20] LABS: GLUCOSE,POINT OF CARE 135 MG/DL (70-110)
[2020-02-11] MEDS ORDERED: CLINDAMYCIN 600 MG/D5% WATER 50 ML IV ONE (15:45)
[2020-02-11 17:06] LABS: CALCIUM, TOTAL 8.6 mg/dL (8.8-10.5); CREATININE 2.19 mg/dL (0.60-1.30); POTASSIUM 3.9 mmol/L (3.5-5.1)
[2020-02-11 18:02] LABS: GLUCOSE,POINT OF CARE 124 MG/DL (70-110)
[2020-02-11] MEDS ORDERED: SODIUM CHLORIDE 0.9% 1,150 ML IV ONE (20:15)
[2020-02-11] MEDS: INSULIN GLARGINE,HUM.REC.ANLOG 100 UNITS/ML SQ SCH (21:19)
[2020-02-11 21:22] LABS: GLUCOSE,POINT OF CARE 154 MG/DL (70-110)
[2020-02-11 21:38] LABS: CALCIUM, TOTAL 8.3 mg/dL (8.8-10.5); CREATININE 2.05 mg/dL (0.60-1.30)
[2020-02-11 22:46] LABS: APPEARANCE,URINE CLOUDY (CLEAR); GLUCOSE, URINE (UA) >=1000 mg/dL (NEGATIVE); KETONES,URINE NEGATIVE (NEGATIVE); LEUKOCYTE ESTERASE ,URINE NEGATIVE (NEGATIVE); NITRATE,URINE NEGATIVE (NEGATIVE); OCCULT BLOOD,URINE MODERATE (NEGATIVE); PROTEIN,URINE NEGATIVE (NEGATIVE); UROBILINOGEN,URINE 0.2 mg/dL (<=1.0)
[2020-02-11 22:53] LABS: AMPHET/METH SCREEN,URINE POSITIVE (NEGATIVE); BARBITURATE SCREEN, URINE NEGATIVE (NEGATIVE); BENZODIAZEPINES SCREEN,URINE NEGATIVE (NEGATIVE); CANNABINOID SCREEN,URINE NEGATIVE (NEGATIVE); COCAINE SCREEN,URINE NEGATIVE (NEGATIVE); METHADONE SCREEN, URINE NEGATIVE (NEGATIVE); OPIATE SCREEN,URINE POSITIVE (NEGATIVE)
[2020-02-11 23:11] LABS: BILIRUBIN,URINE PRELIM. POSITIVE (NEGATIVE); PHENCYCLIDINE SCREEN,URINE NEGATIVE (NEGATIVE)
[2020-02-11 23:33] LABS: BACTERIA,URINE Moderate /HPF (None Seen); RBC,URINE 0-2 /HPF (0-2); SQUAMOUS EPITHELIAL CELL,UR Rare /LPF (None Seen); WBC,URINE 0-2 /HPF (0-5)
[2020-02-12] VITALS (9 sets, daily range): BP systolic 88–121; BP diastolic 45–79
[2020-02-12 01:54] LABS: CALCIUM, TOTAL 7.9 mg/dL (8.8-10.5); CREATININE 1.93 mg/dL (0.60-1.30); POTASSIUM 3.7 mmol/L (3.5-5.1)
[2020-02-12] MEDS: PIPERACILLIN SODIUM/TAZOBACTAM 2.25 GM in DEXTROSE 5%-WATER 50 ML IV SCH ×4 (02:51→22:11)
[2020-02-12] MEDS ORDERED: BUPIVACAINE HCL/PF 0.25% 30 ML VIAL ONE (06:15)
[2020-02-12] MEDS ORDERED: VANCOMYCIN HCL 1 GM/VIAL ONE (06:15)
[2020-02-12] MEDS ORDERED: SODIUM CL IRRIG SOLN BAG 3,000 ML IRRIG ONE (06:16)
[2020-02-12] MEDS ORDERED: LIDOCAINE/PF 1% 30 ML VIAL ONE (06:16)
[2020-02-12] MEDS ORDERED: BACITRACIN 50,000 UNITS/VIAL ONE (06:16)
[2020-02-12 06:20] LABS: GLUCOSE,POINT OF CARE 34 MG/DL (70-110)
[2020-02-12 06:36] LABS: BASOPHILS % (AUTO) 1.1 % (0.0-2.0); EOSINOPHILS % (AUTO) 0.3 % (1.0-6.0); HEMATOCRIT 24.4 % (41-53); HEMOGLOBIN 7.8 g/dL (13.5-17.5); LYMPHOCYTES # (AUTO) 4.3 K/uL (1.0-4.8); LYMPHOCYTES % (AUTO) 20.2 % (22.0-44.0); MEAN CORPUSCULAR HEMOGLOBIN 26.8 pg (26.0-34.0); MEAN CORPUSCULAR HGB CONC 32.1 G/dL (31.0-37.0); MEAN CORPUSCULAR VOLUME 83 fL (80-100); MONOCYTES # (AUTO) 2.2 K/uL (0.1-1.0); MONOCYTES % (AUTO) 10.5 % (2.0-9.0); NEUTROPHILS # (AUTO) 14.5 K/uL (1.8-7.7); NEUTROPHILS % (AUTO) 67.9 % (40.0-70.0); PLATELET COUNT (AUTO) 653 K/uL (150-450); RED BLOOD CELL COUNT(AUTO) 2.92 MIL/uL (4.50-5.90)
[2020-02-12] MEDS ORDERED: SODIUM CHLORIDE 0.9% 10 ML ONE (06:47)
[2020-02-12 06:58] LABS: ALBUMIN 1.5 g/dL (3.4-5.0); BILIRUBIN,TOTAL 0.4 mg/dL (0.1-1.0); CALCIUM, TOTAL 8.6 mg/dL (8.8-10.5); CREATININE 1.71 mg/dL (0.60-1.30); MAGNESIUM 1.6 mg/dL (1.80-2.40); PHOSPHORUS 2.8 mg/dL (2.5-4.9); POTASSIUM 3.5 mmol/L (3.5-5.1)
[2020-02-12 07:03] LABS: GLUCOSE,POINT OF CARE 127 MG/DL (70-110)
[2020-02-12] MEDS: VANCOMYCIN HCL 750 MG in DEXTROSE 5%-WATER 250 ML IV SCH (08:00)
[2020-02-12] MEDS ORDERED: FentaNYL CITRATE-PF 100 MCG/2 ML VIAL IVP PRN (08:45)
[2020-02-12 09:03] LABS: GLUCOMETER DEV NAME(LOC) SDS.; GLUCOSE,POINT OF CARE 94 MG/DL (70-110)
[2020-02-12 11:07] LABS: GLUCOSE,POINT OF CARE 106 MG/DL (70-110)
[2020-02-12] MEDS: INSULIN GLARGINE,HUM.REC.ANLOG 100 UNITS/ML SQ SCH ×2 (11:41→22:41)
[2020-02-12 12:42] LABS: GLUCOSE,POINT OF CARE 94 MG/DL (70-110)
[2020-02-12] MEDS: MORPHINE SULFATE 2 MG/ML SYRINGE IVP PRN ×2 (13:20→19:42)
[2020-02-12 13:27] LABS: GLUCOSE,POINT OF CARE 117 MG/DL (70-110)
[2020-02-12 14:36] LABS: GLUCOSE,POINT OF CARE 93 MG/DL (70-110)
[2020-02-12 15:30] LABS: ANION GAP 8 mmol/L (8-16); CALCIUM, TOTAL 7.8 mg/dL (8.8-10.5); CARBON DIOXIDE 23 mmol/L (22-29); CHLORIDE 100 mmol/L (98-107); CREATININE 1.54 mg/dL (0.60-1.30); GLOMERULAR FILTR. RATE CALC > 60 mL/min (>60); GLUCOSE,RANDOM 77 mg/dL (70-110); POTASSIUM 3.7 mmol/L (3.5-5.1); SODIUM SERUM 131 mmol/L (136-145); UREA NITROGEN, BLOOD 53 mg/dL (7-18)
[2020-02-12 15:51] LABS: GLUCOSE,POINT OF CARE 70 MG/DL (70-110)
[2020-02-12 16:10] LABS: ABG A-A DIFF O2 25.9 mmHg (10-20.0); ABG BASE EXCESS -0.6 mmol/L (-2.0-3.0); ABG HCO3 24.1 mmol/L (22.0-26.0); ABG METHEMOGLOBIN 0.3 % (0.0-1.5); ABG OXYGEN CONTENT 9.1 mL/dL (15.0-23.0); ABG OXYGEN SATURATION 96.6 % (95.0-98.0); ABG OXYHEMOGLOBIN 95.3 % (94.0-100.0); ABG PCO2 32 mmHg (35-45); ABG PH 7.472 (7.350-7.450); PO2, ARTERIAL BG 85.3 mmHg (80.0-100.0); SOURCE, BLOOD GAS ARTERIAL; TEMPERATURE, FAHRENHEIT, BG 98.6 FAHREN (96.0-98.6)
[2020-02-12 16:12] LABS: ABG TOTAL HEMOGLOBIN 6.7 G/dL (12.0-18.0); SITE, BLOOD GAS RT RADIAL
[2020-02-12 16:18] LABS: INR 1.2 (0.9-1.1); PROTHROMBIN TIME 12.6 SEC (9.4-11.6)
[2020-02-12 16:19] LABS: ANION GAP 9 mmol/L (8-16); CARBON DIOXIDE 25 mmol/L (22-29); CHLORIDE 98 mmol/L (98-107); CREATININE 1.47 mg/dL (0.60-1.30); GLOMERULAR FILTR. RATE CALC > 60 mL/min (>60); GLUCOSE,RANDOM 63 mg/dL (70-110); POTASSIUM 3.8 mmol/L (3.5-5.1); SODIUM SERUM 132 mmol/L (136-145); UREA NITROGEN, BLOOD 53 mg/dL (7-18)
[2020-02-12 16:25] LABS: ALANINE AMINOTRANSFERASE 7 U/L (12-78); ALBUMIN 1.2 g/dL (3.4-5.0); ALKALINE PHOSPHATASE 147 U/L (46-116); ASPARTATE AMINOTRANSFERASE 13 U/L (15-37); BILIRUBIN,TOTAL 0.3 mg/dL (0.1-1.0); TOTAL PROTEIN, SERUM 5.8 g/dL (6.4-8.2)
[2020-02-12 16:32] LABS: GLUCOSE,POINT OF CARE 84 MG/DL (70-110)
[2020-02-12 16:40] LABS: LACTIC ACID 3.6 mmol/L (0.4-2.0)
[2020-02-12] MEDS: SODIUM CHLORIDE 0.9% 1,000 ML IV SCH ×2 (17:15→23:24)
[2020-02-12 17:16] LABS: GLUCOSE,POINT OF CARE 69 MG/DL (70-110)
[2020-02-12 18:19] LABS: GLUCOSE,POINT OF CARE 85 MG/DL (70-110)
[2020-02-12 19:22] LABS: ANION GAP 11 mmol/L (8-16); CALCIUM, TOTAL 7.7 mg/dL (8.8-10.5); CARBON DIOXIDE 23 mmol/L (22-29); CHLORIDE 99 mmol/L (98-107); CREATININE 1.52 mg/dL (0.60-1.30); GLOMERULAR FILTR. RATE CALC > 60 mL/min (>60); GLUCOSE,RANDOM 111 mg/dL (70-110); POTASSIUM 4.1 mmol/L (3.5-5.1); SODIUM SERUM 133 mmol/L (136-145); UREA NITROGEN, BLOOD 51 mg/dL (7-18)
[2020-02-12 19:24] LABS: GLUCOSE,POINT OF CARE 115 MG/DL (70-110)
[2020-02-12] MEDS: OXYGEN THERAPY IH SCH (20:00)
[2020-02-12 20:18] LABS: GLUCOSE,POINT OF CARE 121 MG/DL (70-110)
[2020-02-12 22:41] LABS: GLUCOSE,POINT OF CARE 164 MG/DL (70-110)
[2020-02-12] MEDS: INSULIN LISPRO 100 UNITS/ML SQ PRN (22:42)
[2020-02-12 23:55] LABS: ANION GAP 10 mmol/L (8-16); CALCIUM, TOTAL 7.8 mg/dL (8.8-10.5); CARBON DIOXIDE 25 mmol/L (22-29); CHLORIDE 100 mmol/L (98-107); CREATININE 1.46 mg/dL (0.60-1.30); GLOMERULAR FILTR. RATE CALC > 60 mL/min (>60); GLUCOSE,RANDOM 149 mg/dL (70-110); POTASSIUM 3.7 mmol/L (3.5-5.1); SODIUM SERUM 135 mmol/L (136-145); UREA NITROGEN, BLOOD 46 mg/dL (7-18)
[2020-02-13] VITALS (18 sets, daily range): BP systolic 87–135; BP diastolic 45–97
[2020-02-13 00:21] LABS: GLUCOSE,POINT OF CARE 124 MG/DL (70-110)
[2020-02-13] MEDS: PIPERACILLIN SODIUM/TAZOBACTAM 2.25 GM in DEXTROSE 5%-WATER 50 ML IV SCH (02:55)
[2020-02-13 03:47] LABS: ANION GAP 11 mmol/L (8-16); CALCIUM, TOTAL 7.6 mg/dL (8.8-10.5); CARBON DIOXIDE 23 mmol/L (22-29); CHLORIDE 101 mmol/L (98-107); CREATININE 1.32 mg/dL (0.60-1.30); GLOMERULAR FILTR. RATE CALC > 60 mL/min (>60); GLUCOSE,RANDOM 93 mg/dL (70-110); POTASSIUM 3.8 mmol/L (3.5-5.1); SODIUM SERUM 135 mmol/L (136-145); UREA NITROGEN, BLOOD 43 mg/dL (7-18)
[2020-02-13 03:48] LABS: BASOPHILS % (AUTO) 0.8 % (0.0-2.0); EOSINOPHILS % (AUTO) 0.5 % (1.0-6.0); LYMPHOCYTES # (AUTO) 3.2 K/uL (1.0-4.8); LYMPHOCYTES % (AUTO) 19.6 % (22.0-44.0); MEAN CORPUSCULAR HGB CONC 31.3 G/dL (31.0-37.0); MEAN CORPUSCULAR VOLUME 83 fL (80-100); MONOCYTES # (AUTO) 2.2 K/uL (0.1-1.0); MONOCYTES % (AUTO) 13.6 % (2.0-9.0); NEUTROPHILS # (AUTO) 10.6 K/uL (1.8-7.7); NEUTROPHILS % (AUTO) 65.5 % (40.0-70.0); PLATELET COUNT (AUTO) 406 K/uL (150-450); RED BLOOD CELL COUNT(AUTO) 2.04 MIL/uL (4.50-5.90); RED CELL DISTRIBUTION WIDTH 14.7 % (11.5-14.5)
[2020-02-13 04:20] LABS: HEMATOCRIT 16.9 % (41-53); HEMOGLOBIN 5.3 g/dL (13.5-17.5)
[2020-02-13] MEDS: MORPHINE SULFATE 2 MG/ML SYRINGE IVP PRN ×3 (05:50→18:14)
[2020-02-13] MEDS: SODIUM CHLORIDE 0.9% 1,000 ML IV SCH ×3 (05:56→21:04)
[2020-02-13 06:16] LABS: GLUCOSE,POINT OF CARE 58 MG/DL (70-110)
[2020-02-13] MEDS ORDERED: PROPOFOL 1% 20 ML VIAL IVP ONE (06:24)
[2020-02-13] MEDS ORDERED: MIDAZOLAM HCL 2 MG/2 ML VIAL IVP ONE (06:25)
[2020-02-13 06:51] LABS: GLUCOSE,POINT OF CARE 72 MG/DL (70-110)
[2020-02-13] MEDS: INSULIN GLARGINE,HUM.REC.ANLOG 100 UNITS/ML SQ SCH (08:00)
[2020-02-13] MEDS: OXYGEN THERAPY IH SCH ×2 (08:00→20:00)
[2020-02-13] MEDS: VANCOMYCIN HCL 750 MG in DEXTROSE 5%-WATER 250 ML IV SCH (08:31)
[2020-02-13 09:00] LABS: GLUCOSE,POINT OF CARE 66 MG/DL (70-110)
[2020-02-13 10:41] LABS: BASOPHILS % (AUTO) 0.6 % (0.0-2.0); EOSINOPHILS % (AUTO) 0.2 % (1.0-6.0); HEMATOCRIT 21.7 % (41-53); HEMOGLOBIN 7.4 g/dL (13.5-17.5); LYMPHOCYTES # (AUTO) 2.9 K/uL (1.0-4.8); LYMPHOCYTES % (AUTO) 13.3 % (22.0-44.0); MEAN CORPUSCULAR HEMOGLOBIN 28.2 pg (26.0-34.0); MEAN CORPUSCULAR HGB CONC 33.9 G/dL (31.0-37.0); MEAN CORPUSCULAR VOLUME 83 fL (80-100); MONOCYTES # (AUTO) 2.7 K/uL (0.1-1.0); NEUTROPHILS # (AUTO) 16.4 K/uL (1.8-7.7); NEUTROPHILS % (AUTO) 73.9 % (40.0-70.0); PLATELET COUNT (AUTO) 402 K/uL (150-450); RED CELL DISTRIBUTION WIDTH 14.7 % (11.5-14.5)
[2020-02-13 10:48] LABS: ANION GAP 8 mmol/L (8-16); CALCIUM, TOTAL 7.7 mg/dL (8.8-10.5); CARBON DIOXIDE 24 mmol/L (22-29); CHLORIDE 102 mmol/L (98-107); CREATININE 1.22 mg/dL (0.60-1.30); GLOMERULAR FILTR. RATE CALC > 60 mL/min (>60); GLUCOSE,RANDOM 62 mg/dL (70-110); POTASSIUM 3.6 mmol/L (3.5-5.1); SODIUM SERUM 134 mmol/L (136-145); UREA NITROGEN, BLOOD 38 mg/dL (7-18)
[2020-02-13 10:50] LABS: GLUCOSE,POINT OF CARE 96 MG/DL (70-110)
[2020-02-13 10:55] LABS: ALANINE AMINOTRANSFERASE 7 U/L (12-78); ALBUMIN 1.1 g/dL (3.4-5.0); ALKALINE PHOSPHATASE 140 U/L (46-116); ASPARTATE AMINOTRANSFERASE 15 U/L (15-37); BILIRUBIN,TOTAL 0.7 mg/dL (0.1-1.0); TOTAL PROTEIN, SERUM 5.6 g/dL (6.4-8.2)
[2020-02-13] MEDS: PIPERACILLIN/TAZO 3.375 GM/D5W 50 ML IV SCH ×3 (11:17→22:05)
[2020-02-13 11:54] LABS: GLUCOSE,POINT OF CARE 46 MG/DL (70-110)
[2020-02-13 14:51] LABS: GLUCOSE,POINT OF CARE 105 MG/DL (70-110)
[2020-02-13 16:51] LABS: GLUCOSE,POINT OF CARE 92 MG/DL (70-110)
[2020-02-13 19:26] LABS: ANION GAP 11 mmol/L (8-16); CALCIUM, TOTAL 7.4 mg/dL (8.8-10.5); CARBON DIOXIDE 20 mmol/L (22-29); CHLORIDE 106 mmol/L (98-107); CREATININE 1.15 mg/dL (0.60-1.30); GLOMERULAR FILTR. RATE CALC > 60 mL/min (>60); GLUCOSE,RANDOM 131 mg/dL (70-110); POTASSIUM 3.9 mmol/L (3.5-5.1); SODIUM SERUM 137 mmol/L (136-145); UREA NITROGEN, BLOOD 32 mg/dL (7-18)
[2020-02-14 00:17] VITALS: BP 123/95
[2020-02-14] MEDS: MORPHINE SULFATE 2 MG/ML SYRINGE IVP PRN ×5 (00:17→23:18)
[2020-02-14] MEDS: SODIUM CHLORIDE 0.9% 1,000 ML IV SCH ×3 (01:50→15:03)
[2020-02-14] MEDS: PIPERACILLIN/TAZO 3.375 GM/D5W 50 ML IV SCH ×3 (03:43→15:16)
[2020-02-14] MEDS ORDERED: DEXTROSE 50%-WATER 25 GM/50 ML SYRINGE IVP ONE (03:48)
[2020-02-14] MEDS: DEXTROSE 50%-WATER 25 GM/50 ML SYRINGE IVP PRN (03:49)
[2020-02-14 04:42] VITALS: BP 136/80
[2020-02-14 04:49] LABS: GLUCOMETER DEV NAME(LOC) 5N.3; GLUCOSE,POINT OF CARE 144 MG/DL (70-110)
[2020-02-14 04:49] LABS: GLUCOMETER DEV NAME(LOC) 5N.3; GLUCOSE,POINT OF CARE 56 MG/DL (70-110)
[2020-02-14] MEDS: OXYGEN THERAPY IH SCH ×2 (08:00→20:00)
[2020-02-14] MEDS: THIAMINE 100 MG TABLET PO SCH (08:14)
[2020-02-14] MEDS: MULTIVITAMINS WITH MINERALS, THERAPEUTIC TABLET PO SCH (08:14)
[2020-02-14] MEDS: VANCOMYCIN HCL 750 MG in DEXTROSE 5%-WATER 250 ML IV SCH (08:16)
[2020-02-14 08:18] VITALS: BP 127/78
[2020-02-14 11:15] VITALS: BP 128/70
[2020-02-14 11:51] LABS: GLUCOMETER DEV NAME(LOC) 5S.1; GLUCOSE,POINT OF CARE 95 MG/DL (70-110)
[2020-02-14 12:04] LABS: BASOPHILS % (AUTO) 0.5 % (0.0-2.0); EOSINOPHILS % (AUTO) 0.4 % (1.0-6.0); HEMOGLOBIN 8.6 g/dL (13.5-17.5); LYMPHOCYTES % (AUTO) 11.2 % (22.0-44.0); MEAN CORPUSCULAR HEMOGLOBIN 29.2 pg (26.0-34.0); MEAN CORPUSCULAR HGB CONC 34.5 G/dL (31.0-37.0); MEAN CORPUSCULAR VOLUME 84 fL (80-100); MONOCYTES # (AUTO) 1.9 K/uL (0.1-1.0); MONOCYTES % (AUTO) 10.5 % (2.0-9.0); NEUTROPHILS % (AUTO) 77.4 % (40.0-70.0); PLATELET COUNT (AUTO) 292 K/uL (150-450); RED BLOOD CELL COUNT(AUTO) 2.97 MIL/uL (4.50-5.90); RED CELL DISTRIBUTION WIDTH 15.3 % (11.5-14.5)
[2020-02-14 12:19] LABS: ALBUMIN 1.1 g/dL (3.4-5.0); ALKALINE PHOSPHATASE 123 U/L (46-116); ANION GAP 9 mmol/L (8-16); ASPARTATE AMINOTRANSFERASE 13 U/L (15-37); BILIRUBIN,TOTAL 0.5 mg/dL (0.1-1.0); C-REACTIVE PROTEIN QUANT 8.75 mg/dL (0.00-0.30); CALCIUM, TOTAL 7.3 mg/dL (8.8-10.5); CARBON DIOXIDE 23 mmol/L (22-29); CHLORIDE 108 mmol/L (98-107); GLOMERULAR FILTR. RATE CALC > 60 mL/min (>60); GLUCOSE,RANDOM 106 mg/dL (70-110); POTASSIUM 3.6 mmol/L (3.5-5.1); SODIUM SERUM 140 mmol/L (136-145); TOTAL PROTEIN, SERUM 5.2 g/dL (6.4-8.2); UREA NITROGEN, BLOOD 23 mg/dL (7-18)
[2020-02-14 12:31] LABS: ALANINE AMINOTRANSFERASE 6 U/L (12-78)
[2020-02-14 12:53] LABS: GLUCOMETER DEV NAME(LOC) 5N.3; GLUCOSE,POINT OF CARE 89 MG/DL (70-110)
[2020-02-14] MEDS ORDERED: SODIUM CL IRRIG SOLN BOTTLE 250 ML IRRIG ONE (14:05)
[2020-02-14 14:34] LABS: GLUCOSE,POINT OF CARE 129 MG/DL (70-110)
[2020-02-14 14:47] VITALS: BP 118/74
[2020-02-14] MEDS: INSULIN LISPRO 100 UNITS/ML SQ PRN ×2 (17:35→23:47)
[2020-02-14 18:34] LABS: GLUCOSE,POINT OF CARE 143 MG/DL (70-110)
[2020-02-14 20:22] VITALS: BP 112/77
[2020-02-14 20:58] LABS: GLUCOMETER DEV NAME(LOC) 5N.3; GLUCOSE,POINT OF CARE 211 MG/DL (70-110)
[2020-02-14] MEDS: LEVOFLOXACIN 750 MG/D5% WATER 150 ML IV SCH (21:29)
[2020-02-14 22:13] LABS: ANION GAP 8 mmol/L (8-16); CALCIUM, TOTAL 7.6 mg/dL (8.8-10.5); CARBON DIOXIDE 22 mmol/L (22-29); CHLORIDE 111 mmol/L (98-107); CREATININE 0.96 mg/dL (0.60-1.30); GLOMERULAR FILTR. RATE CALC > 60 mL/min (>60); GLUCOSE,RANDOM 170 mg/dL (70-110); POTASSIUM 3.6 mmol/L (3.5-5.1); SODIUM SERUM 141 mmol/L (136-145); UREA NITROGEN, BLOOD 22 mg/dL (7-18)
[2020-02-14] MEDS: AMPICILLIN SODIUM 2 GM/NS 100 ML IV SCH (23:17)
[2020-02-14 23:59] LABS: GLUCOMETER DEV NAME(LOC) 5N.3; GLUCOSE,POINT OF CARE 172 MG/DL (70-110)
[2020-02-15 00:25] VITALS: BP 111/75
[2020-02-15] MEDS: AMPICILLIN SODIUM 2 GM/NS 100 ML IV SCH ×4 (03:55→21:59)
[2020-02-15] MEDS: SODIUM CHLORIDE 0.9% 1,000 ML IV SCH ×4 (03:56→18:02)
[2020-02-15 04:32] VITALS: BP 125/81
[2020-02-15] MEDS: MORPHINE SULFATE 2 MG/ML SYRINGE IVP PRN ×3 (05:18→18:03)
[2020-02-15 06:45] LABS: GLUCOMETER DEV NAME(LOC) 5N.3; GLUCOSE,POINT OF CARE 135 MG/DL (70-110)
[2020-02-15 07:19] VITALS: BP 122/84
[2020-02-15] MEDS: OXYGEN THERAPY IH SCH (08:00)
[2020-02-15] MEDS: MULTIVITAMINS WITH MINERALS, THERAPEUTIC TABLET PO SCH (08:32)
[2020-02-15] MEDS: THIAMINE 100 MG TABLET PO SCH (08:32)
[2020-02-15] MEDS ORDERED: GADOBUTROL 1 MMOL/ML 10 ML VIAL IVP ONE (08:41)
[2020-02-15 11:17] VITALS: BP 126/80
[2020-02-15] MEDS: INSULIN LISPRO 100 UNITS/ML SQ PRN ×2 (12:13→16:35)
[2020-02-15 12:40] LABS: ANION GAP 12 mmol/L (8-16); CALCIUM, TOTAL 7.4 mg/dL (8.8-10.5); CARBON DIOXIDE 19 mmol/L (22-29); CHLORIDE 111 mmol/L (98-107); CREATININE 0.86 mg/dL (0.60-1.30); GLOMERULAR FILTR. RATE CALC > 60 mL/min (>60); GLUCOSE,RANDOM 344 mg/dL (70-110); POTASSIUM 4.8 mmol/L (3.5-5.1); SODIUM SERUM 142 mmol/L (136-145); UREA NITROGEN, BLOOD 19 mg/dL (7-18)
[2020-02-15 18:01] LABS: GLUCOMETER DEV NAME(LOC) 5N.3; GLUCOSE,POINT OF CARE 226 MG/DL (70-110)
[2020-02-15 18:01] LABS: GLUCOMETER DEV NAME(LOC) 5N.3; GLUCOSE,POINT OF CARE 311 MG/DL (70-110)
[2020-02-15] MEDS: LEVOFLOXACIN 750 MG/D5% WATER 150 ML IV SCH (20:16)
[2020-02-15 20:45] VITALS: BP 134/51
[2020-02-16] MEDS: MORPHINE SULFATE 2 MG/ML SYRINGE IVP PRN ×3 (00:05→12:05)
[2020-02-16] MEDS: INSULIN LISPRO 100 UNITS/ML SQ PRN ×3 (00:19→21:39)
[2020-02-16] MEDS: AMPICILLIN SODIUM 2 GM/NS 100 ML IV SCH ×4 (02:01→21:50)
[2020-02-16] MEDS: SODIUM CHLORIDE 0.9% 1,000 ML IV SCH ×3 (02:04→21:41)
[2020-02-16 04:25] VITALS: BP 133/94
[2020-02-16 05:04] LABS: GLUCOMETER DEV NAME(LOC) 5S.1; GLUCOSE,POINT OF CARE 194 MG/DL (70-110)
[2020-02-16 06:52] LABS: GLUCOMETER DEV NAME(LOC) 5S.1; GLUCOSE,POINT OF CARE 121 MG/DL (70-110)
[2020-02-16 07:41] LABS: BASOPHILS % (AUTO) 0.6 % (0.0-2.0); EOSINOPHILS % (AUTO) 0.3 % (1.0-6.0); HEMATOCRIT 27.5 % (41-53); LYMPHOCYTES # (AUTO) 2.6 K/uL (1.0-4.8); LYMPHOCYTES % (AUTO) 11.4 % (22.0-44.0); MEAN CORPUSCULAR HEMOGLOBIN 28.7 pg (26.0-34.0); MEAN CORPUSCULAR HGB CONC 32.8 G/dL (31.0-37.0); MEAN CORPUSCULAR VOLUME 87 fL (80-100); MONOCYTES # (AUTO) 2.5 K/uL (0.1-1.0); MONOCYTES % (AUTO) 11.1 % (2.0-9.0); NEUTROPHILS # (AUTO) 17.2 K/uL (1.8-7.7); NEUTROPHILS % (AUTO) 76.6 % (40.0-70.0); PLATELET COUNT (AUTO) 324 K/uL (150-450); RED BLOOD CELL COUNT(AUTO) 3.15 MIL/uL (4.50-5.90); RED CELL DISTRIBUTION WIDTH 15.8 % (11.5-14.5)
[2020-02-16 08:04] VITALS: BP 142/86
[2020-02-16 08:11] LABS: ALANINE AMINOTRANSFERASE 8 U/L (12-78); ALBUMIN 1.2 g/dL (3.4-5.0); ALKALINE PHOSPHATASE 153 U/L (46-116); ANION GAP 11 mmol/L (8-16); ASPARTATE AMINOTRANSFERASE 16 U/L (15-37); BILIRUBIN,TOTAL 0.2 mg/dL (0.1-1.0); C-REACTIVE PROTEIN QUANT 7.17 mg/dL (0.00-0.30); CALCIUM, TOTAL 7.5 mg/dL (8.8-10.5); CARBON DIOXIDE 19 mmol/L (22-29); CHLORIDE 111 mmol/L (98-107); CREATININE 0.78 mg/dL (0.60-1.30); GLOMERULAR FILTR. RATE CALC > 60 mL/min (>60); GLUCOSE,RANDOM 132 mg/dL (70-110); POTASSIUM 3.6 mmol/L (3.5-5.1); SODIUM SERUM 141 mmol/L (136-145); TOTAL PROTEIN, SERUM 5.9 g/dL (6.4-8.2); UREA NITROGEN, BLOOD 15 mg/dL (7-18)
[2020-02-16] MEDS: OXYGEN THERAPY IH SCH ×2 (08:26→08:36)
[2020-02-16] MEDS: THIAMINE 100 MG TABLET PO SCH (08:26)
[2020-02-16] MEDS: MULTIVITAMINS WITH MINERALS, THERAPEUTIC TABLET PO SCH (08:26)
[2020-02-16 11:40] VITALS: BP 125/86
[2020-02-16] MEDS ORDERED: LORazepam 2 MG/ML VIAL IVP ONE ×2 (14:45→15:45)
[2020-02-16 15:14] LABS: GLUCOMETER DEV NAME(LOC) 5N.3; GLUCOSE,POINT OF CARE 195 MG/DL (70-110)
[2020-02-16 15:14] LABS: GLUCOMETER DEV NAME(LOC) 5N.3; GLUCOSE,POINT OF CARE 214 MG/DL (70-110)
[2020-02-16] MEDS: LEVOFLOXACIN 750 MG/D5% WATER 150 ML IV SCH (20:48)
[2020-02-16 21:17] VITALS: BP 110/63
[2020-02-17 00:02] LABS: GLUCOMETER DEV NAME(LOC) 5N.3; GLUCOSE,POINT OF CARE 156 MG/DL (70-110)
[2020-02-17 00:02] LABS: GLUCOMETER DEV NAME(LOC) 5N.3; GLUCOSE,POINT OF CARE 163 MG/DL (70-110)
[2020-02-17] MEDS: MORPHINE SULFATE 2 MG/ML SYRINGE IVP PRN ×4 (00:04→20:10)
[2020-02-17] MEDS: AMPICILLIN SODIUM 2 GM/NS 100 ML IV SCH ×4 (02:43→21:44)
[2020-02-17] MEDS: SODIUM CHLORIDE 0.9% 1,000 ML IV SCH ×4 (02:46→22:57)
[2020-02-17 04:38] VITALS: BP 120/75
[2020-02-17 07:49] VITALS: BP 123/89
[2020-02-17] MEDS: MULTIVITAMINS WITH MINERALS, THERAPEUTIC TABLET PO SCH (08:49)
[2020-02-17] MEDS: OXYGEN THERAPY IH SCH ×3 (08:50→23:10)
[2020-02-17] MEDS: THIAMINE 100 MG TABLET PO SCH (08:50)
[2020-02-17 11:13] VITALS: BP 118/58
[2020-02-17 12:28] LABS: GLUCOMETER DEV NAME(LOC) 5N.3; GLUCOSE,POINT OF CARE 109 MG/DL (70-110)
[2020-02-17] MEDS: INSULIN LISPRO 100 UNITS/ML SQ PRN ×2 (12:44→22:03)
[2020-02-17 15:16] VITALS: BP 122/62
[2020-02-17 20:15] VITALS: BP 133/107
[2020-02-17] MEDS: LEVOFLOXACIN 750 MG/D5% WATER 150 ML IV SCH (20:19)
[2020-02-17] MEDS ORDERED: IPRATROPIUM BROMIDE 0.5 MG/2.5 ML NEB SOLUTION NEB PRN (23:15)
[2020-02-17] MEDS ORDERED: ALBUTEROL SULFATE 2.5 MG/0.5 ML NEB SOLUTION NEB PRN (23:15)
[2020-02-18] VITALS (11 sets, daily range): BP systolic 87–129; BP diastolic 57–94
[2020-02-18] MEDS: MORPHINE SULFATE 2 MG/ML SYRINGE IVP PRN (02:04)
[2020-02-18] MEDS: AMPICILLIN SODIUM 2 GM/NS 100 ML IV SCH ×4 (03:08→22:42)
[2020-02-18 06:27] LABS: GLUCOMETER DEV NAME(LOC) 5S.1; GLUCOSE,POINT OF CARE 154 MG/DL (70-110)
[2020-02-18 06:27] LABS: GLUCOMETER DEV NAME(LOC) 5S.1; GLUCOSE,POINT OF CARE 379 MG/DL (70-110)
[2020-02-18] MEDS: THIAMINE 100 MG TABLET PO SCH (08:59)
[2020-02-18] MEDS: MULTIVITAMINS WITH MINERALS, THERAPEUTIC TABLET PO SCH (09:00)
[2020-02-18] MEDS: OXYGEN THERAPY IH SCH ×2 (09:09→21:29)
[2020-02-18 12:19] LABS: GLUCOMETER DEV NAME(LOC) 5N.3; GLUCOSE,POINT OF CARE 137 MG/DL (70-110)
[2020-02-18] MEDS ORDERED: SODIUM CHLORIDE 0.9% 100 ML ONE (13:08)
[2020-02-18] MEDS ORDERED: IOVERSOL 320 MG/ML 100 ML VIAL ONE (13:08)
[2020-02-18] MEDS ORDERED: IOVERSOL 350 MG/ML 100 ML VIAL ONE (13:11)
[2020-02-18 17:10] LABS: GLUCOMETER DEV NAME(LOC) 5S.1; GLUCOSE,POINT OF CARE 107 MG/DL (70-110)
[2020-02-18 17:28] LABS: SOURCE, BLOOD GAS ARTERIAL; TEMPERATURE, FAHRENHEIT, BG 88.8 FAHREN (96.0-98.6)
[2020-02-18 18:01] LABS: ABG A-A DIFF O2 636.7 mmHg (10-20.0); ABG BASE EXCESS -12.3 mmol/L (-2.0-3.0); ABG CARBOXYHEMOGLOBIN 0.1 % (0.0-3.0); ABG HCO3 14.7 mmol/L (22.0-26.0); ABG METHEMOGLOBIN 0.3 % (0.0-1.5); ABG OXYGEN CONTENT 10.6 mL/dL (15.0-23.0); ABG OXYHEMOGLOBIN 83.5 % (94.0-100.0); ABG PCO2 51 mmHg (35-45)
[2020-02-18 18:18] LABS: ABG PH 7.134 (7.350-7.450)
[2020-02-18] MEDS: ALBUMIN HUMAN 25%-25GM/100ML 100 ML IV PRN (18:18)
[2020-02-18 18:19] LABS: ABG OXYGEN SATURATION 83.8 % (95.0-98.0); O2 DEVICE,BLOOD GAS NRB (ROOM AIR); SITE, BLOOD GAS LFT RADIAL
[2020-02-18 18:35] LABS: GLUCOMETER DEV NAME(LOC) 5N.1; GLUCOSE,POINT OF CARE 198 MG/DL (70-110)
[2020-02-18] MEDS: NOREPINEPHRINE 4 MG/D5%-WATER 250 ML IV PRN (19:05)
[2020-02-18 19:17] LABS: ABG A-A DIFF O2 405.4 mmHg (10-20.0); ABG BASE EXCESS -12.8 mmol/L (-2.0-3.0); ABG CARBOXYHEMOGLOBIN 0.8 % (0.0-3.0); ABG HCO3 14.7 mmol/L (22.0-26.0); ABG METHEMOGLOBIN 0.3 % (0.0-1.5); ABG OXYGEN SATURATION 94.4 % (95.0-98.0); ABG OXYHEMOGLOBIN 93.4 % (94.0-100.0); ABG PCO2 42 mmHg (35-45); ABG TOTAL HEMOGLOBIN 8.3 G/dL (12.0-18.0); PO2, ARTERIAL BG 57.9 mmHg (80.0-100.0); SOURCE, BLOOD GAS ARTERIAL; TEMPERATURE, FAHRENHEIT, BG 88.3 FAHREN (96.0-98.6)
[2020-02-18 19:18] LABS: ABG PH 7.186 (7.350-7.450); O2 DEVICE,BLOOD GAS NON REBREATHER (ROOM AIR); SITE, BLOOD GAS RT RADIAL
[2020-02-18 20:28] LABS: LACTIC ACID 2.7 mmol/L (0.4-2.0)
[2020-02-18 20:49] LABS: BASOPHILS % (AUTO) 0.2 % (0.0-2.0); EOSINOPHILS % (AUTO) 0 % (1.0-6.0); HEMATOCRIT 29.1 % (41-53); HEMOGLOBIN 9.4 g/dL (13.5-17.5); LYMPHOCYTES # (AUTO) 1.8 K/uL (1.0-4.8); LYMPHOCYTES % (AUTO) 7.3 % (22.0-44.0); MEAN CORPUSCULAR HEMOGLOBIN 28.9 pg (26.0-34.0); MEAN CORPUSCULAR HGB CONC 32.2 G/dL (31.0-37.0); MEAN CORPUSCULAR VOLUME 90 fL (80-100); MONOCYTES # (AUTO) 1.6 K/uL (0.1-1.0); MONOCYTES % (AUTO) 6.5 % (2.0-9.0); NEUTROPHILS # (AUTO) 21.1 K/uL (1.8-7.7); PLATELET COUNT (AUTO) 382 K/uL (150-450); RED BLOOD CELL COUNT(AUTO) 3.25 MIL/uL (4.50-5.90); RED CELL DISTRIBUTION WIDTH 16.9 % (11.5-14.5)
[2020-02-18 21:02] LABS: ANION GAP 11 mmol/L (8-16); CALCIUM, TOTAL 8.1 mg/dL (8.8-10.5); CARBON DIOXIDE 19 mmol/L (22-29); CHLORIDE 115 mmol/L (98-107); CREATININE 0.71 mg/dL (0.60-1.30); GLOMERULAR FILTR. RATE CALC > 60 mL/min (>60); GLUCOSE,RANDOM 244 mg/dL (70-110); POTASSIUM 4.5 mmol/L (3.5-5.1); SODIUM SERUM 145 mmol/L (136-145); UREA NITROGEN, BLOOD 15 mg/dL (7-18)
[2020-02-18 21:08] LABS: ALANINE AMINOTRANSFERASE 10 U/L (12-78); ALKALINE PHOSPHATASE 139 U/L (46-116); ASPARTATE AMINOTRANSFERASE 19 U/L (15-37); BILIRUBIN,TOTAL 0.2 mg/dL (0.1-1.0); TOTAL PROTEIN, SERUM 6.5 g/dL (6.4-8.2)
[2020-02-18] MEDS: LEVOFLOXACIN 750 MG/D5% WATER 150 ML IV SCH (21:29)
[2020-02-18] MEDS: SODIUM CHLORIDE 0.9% 1,000 ML IV SCH (21:30)
[2020-02-18] MEDS: INSULIN LISPRO 100 UNITS/ML SQ PRN (22:02)
[2020-02-18 22:06] LABS: GLUCOSE,POINT OF CARE 243 MG/DL (70-110)
[2020-02-19] VITALS (24 sets, daily range): BP systolic 99–146; BP diastolic 45–80
[2020-02-19] MEDS ORDERED: VANCOMYCIN HCL 1.25 GM in DEXTROSE 5%-WATER 250 ML IV ONE ×2
[2020-02-19] MEDS: MORPHINE SULFATE 2 MG/ML SYRINGE IVP PRN ×2 (00:29→07:36)
[2020-02-19] MEDS: CLINDAMYCIN 900 MG/D5% WATER 50 ML IV SCH ×2 (01:35→10:39)
[2020-02-19 03:05] LABS: GLUCOSE,POINT OF CARE 283 MG/DL (70-110)
[2020-02-19] MEDS: NOREPINEPHRINE 4 MG/D5%-WATER 250 ML IV PRN ×3 (03:37→17:38)
[2020-02-19] MEDS: AMPICILLIN SODIUM 2 GM/NS 100 ML IV SCH ×3 (03:46→21:00)
[2020-02-19] MEDS ORDERED: VANCOMYCIN HCL 1 GM/D5% WATER 200 ML IV SCH ×2 (07:00→19:00)
[2020-02-19 07:09] LABS: GLUCOSE,POINT OF CARE 217 MG/DL (70-110)
[2020-02-19 07:15] LABS: BASOPHILS % (AUTO) 0.1 % (0.0-2.0); EOSINOPHILS % (AUTO) 0.1 % (1.0-6.0); HEMATOCRIT 24.9 % (41-53); HEMOGLOBIN 7.6 g/dL (13.5-17.5); LYMPHOCYTES # (AUTO) 2.4 K/uL (1.0-4.8); LYMPHOCYTES % (AUTO) 8.3 % (22.0-44.0); MEAN CORPUSCULAR HEMOGLOBIN 27.4 pg (26.0-34.0); MEAN CORPUSCULAR HGB CONC 30.7 G/dL (31.0-37.0); MEAN CORPUSCULAR VOLUME 89 fL (80-100); MONOCYTES # (AUTO) 2.4 K/uL (0.1-1.0); MONOCYTES % (AUTO) 8.5 % (2.0-9.0); NEUTROPHILS # (AUTO) 23.7 K/uL (1.8-7.7); PLATELET COUNT (AUTO) 419 K/uL (150-450); RED BLOOD CELL COUNT(AUTO) 2.79 MIL/uL (4.50-5.90)
[2020-02-19] MEDS: SODIUM CHLORIDE 0.9% 1,000 ML IV SCH ×3 (07:34→22:12)
[2020-02-19] MEDS: INSULIN LISPRO 100 UNITS/ML SQ PRN (07:38)
[2020-02-19 07:47] LABS: ALANINE AMINOTRANSFERASE 11 U/L (12-78); ALBUMIN 1.5 g/dL (3.4-5.0); ALKALINE PHOSPHATASE 133 U/L (46-116); ANION GAP 11 mmol/L (8-16); ASPARTATE AMINOTRANSFERASE 17 U/L (15-37); BILIRUBIN,TOTAL 0.2 mg/dL (0.1-1.0); CALCIUM, TOTAL 7.7 mg/dL (8.8-10.5); CARBON DIOXIDE 17 mmol/L (22-29); CHLORIDE 113 mmol/L (98-107); CREATININE 0.82 mg/dL (0.60-1.30); FERRITIN 1392 ng/mL (26-388); GLOMERULAR FILTR. RATE CALC > 60 mL/min (>60); GLUCOSE,RANDOM 225 mg/dL (70-110); LACTATE DEHYDROGENASE 211 U/L (85-227); POTASSIUM 4.5 mmol/L (3.5-5.1); SODIUM SERUM 141 mmol/L (136-145); TOTAL PROTEIN, SERUM 5.9 g/dL (6.4-8.2); UREA NITROGEN, BLOOD 15 mg/dL (7-18)
[2020-02-19] MEDS: OXYGEN THERAPY IH SCH ×2 (08:07→20:00)
[2020-02-19 09:46] LABS: ABG A-A DIFF O2 511.6 mmHg (10-20.0); ABG BASE EXCESS -13.1 mmol/L (-2.0-3.0); ABG CARBOXYHEMOGLOBIN 0.3 % (0.0-3.0); ABG HCO3 14.7 mmol/L (22.0-26.0); ABG METHEMOGLOBIN 0.3 % (0.0-1.5); ABG OXYGEN CONTENT 12.1 mL/dL (15.0-23.0); ABG OXYGEN SATURATION 98.8 % (95.0-98.0); ABG OXYHEMOGLOBIN 98.2 % (94.0-100.0); ABG PCO2 39 mmHg (35-45); ABG TOTAL HEMOGLOBIN 8.5 G/dL (12.0-18.0); PO2, ARTERIAL BG 164.9 mmHg (80.0-100.0); SOURCE, BLOOD GAS ARTERIAL; TEMPERATURE, FAHRENHEIT, BG 96.7 FAHREN (96.0-98.6)
[2020-02-19 09:47] LABS: ABG PH 7.199 (7.350-7.450); SITE, BLOOD GAS LFT RADIAL
[2020-02-19 09:48] LABS: O2 DEVICE,BLOOD GAS NON REBREATHER (ROOM AIR)
[2020-02-19] MEDS: THIAMINE 100 MG TABLET PO SCH (10:13)
[2020-02-19] MEDS: MULTIVITAMINS WITH MINERALS, THERAPEUTIC TABLET PO SCH (10:13)
[2020-02-19 10:35] LABS: GLUCOSE,POINT OF CARE 171 MG/DL (70-110)
[2020-02-19] MEDS ORDERED: SUCCINYLCHOLINE CHLORIDE 20 MG/ML 10 ML VIAL IVP ONE (12:00)
[2020-02-19] MEDS ORDERED: FentaNYL CITRATE-PF 100 MCG/2 ML VIAL IVP ONE (12:00)
[2020-02-19] MEDS ORDERED: PHENYLEPHRINE HCL 10 MG/ML VIAL IVP ONE (12:00)
[2020-02-19] MEDS ORDERED: ROCURONIUM BROMIDE 10 MG/ML 5 ML VIAL IVP ONE (12:00)
[2020-02-19] MEDS ORDERED: EPHEDrine SULFATE 50 MG/ML VIAL IVP ONE (12:00)
[2020-02-19] MEDS ORDERED: LIDOCAINE/PF 2% 5 ML VIAL INJ ONE (12:00)
[2020-02-19] MEDS ORDERED: PROPOFOL 1% 20 ML VIAL IVP ONE (12:00)
[2020-02-19] MEDS ORDERED: MIDAZOLAM HCL 2 MG/2 ML VIAL IVP ONE (12:00)
[2020-02-19] MEDS ORDERED: 0.9% SODIUM CHLORIDE 10 ML VIAL IVP ONE (12:00)
[2020-02-19] MEDS ORDERED: LIDOCAINE/PF 1% 30 ML VIAL ONE (14:07)
[2020-02-19 14:49] LABS: ABG A-A DIFF O2 594.3 mmHg (10-20.0); ABG BASE EXCESS -12.4 mmol/L (-2.0-3.0); ABG CARBOXYHEMOGLOBIN 0.3 % (0.0-3.0); ABG HCO3 15.1 mmol/L (22.0-26.0); ABG METHEMOGLOBIN 0.2 % (0.0-1.5); ABG OXYGEN CONTENT 11.2 mL/dL (15.0-23.0); ABG OXYGEN SATURATION 96.2 % (95.0-98.0); ABG OXYHEMOGLOBIN 95.7 % (94.0-100.0); ABG PCO2 42 mmHg (35-45); ABG TOTAL HEMOGLOBIN 8.2 G/dL (12.0-18.0); PO2, ARTERIAL BG 80.5 mmHg (80.0-100.0); SOURCE, BLOOD GAS ARTERIAL; TEMPERATURE, FAHRENHEIT, BG 95.9 FAHREN (96.0-98.6)
[2020-02-19 14:50] LABS: ABG PH 7.192 (7.350-7.450); O2 DEVICE,BLOOD GAS NON REBREATHER (ROOM AIR); SITE, BLOOD GAS A LINE
[2020-02-19] MEDS ORDERED: SODIUM BICARBONATE [ADULT] 8.4% 50 MEQ/50 ML SYRINGE IVP ONE ×3 (14:53→20:00)
[2020-02-19] MEDS ORDERED: SODIUM CHLORIDE 0.9% 10 ML ONE (15:28)
[2020-02-19] MEDS ORDERED: BACITRACIN 50,000 UNITS/VIAL ONE (15:28)
[2020-02-19] MEDS ORDERED: PROPOFOL 1000 MG/ISO-OSM 100 ML IV ONE (15:37)
[2020-02-19 17:28] LABS: ABG A-A DIFF O2 361.7 mmHg (10-20.0); ABG BASE EXCESS -11.3 mmol/L (-2.0-3.0); ABG CARBOXYHEMOGLOBIN 0.3 % (0.0-3.0); ABG HCO3 15.9 mmol/L (22.0-26.0); ABG METHEMOGLOBIN 0.4 % (0.0-1.5); ABG OXYGEN SATURATION 99.2 % (95.0-98.0); ABG OXYHEMOGLOBIN 98.5 % (94.0-100.0); ABG PCO2 44 mmHg (35-45); ABG TOTAL HEMOGLOBIN 9.5 G/dL (12.0-18.0); PO2, ARTERIAL BG 307.6 mmHg (80.0-100.0); SOURCE, BLOOD GAS ARTERIAL; TEMPERATURE, FAHRENHEIT, BG 98.6 FAHREN (96.0-98.6)
[2020-02-19 17:29] LABS: HEMATOCRIT 26.8 % (41-53); HEMOGLOBIN 8.5 g/dL (13.5-17.5); MEAN CORPUSCULAR HEMOGLOBIN 28.1 pg (26.0-34.0); MEAN CORPUSCULAR HGB CONC 31.8 G/dL (31.0-37.0); MEAN CORPUSCULAR VOLUME 88 fL (80-100); PLATELET COUNT (AUTO) 371 K/uL (150-450); RED BLOOD CELL COUNT(AUTO) 3.03 MIL/uL (4.50-5.90); RED CELL DISTRIBUTION WIDTH 15.9 % (11.5-14.5)
[2020-02-19 17:30] LABS: O2 DEVICE,BLOOD GAS VENTILATOR (ROOM AIR); PEEP,BG 5 cm H2O; SITE, BLOOD GAS A LINE; SPONTANEOUS VT, BG 440 ml; VT, ABG 450 ml
[2020-02-19] MEDS: PROPOFOL 1000 MG/ISO-OSM 100 ML IV PRN (17:45)
[2020-02-19 17:54] LABS: ANION GAP 11 mmol/L (8-16); CALCIUM, TOTAL 7.2 mg/dL (8.8-10.5); CARBON DIOXIDE 19 mmol/L (22-29); CHLORIDE 116 mmol/L (98-107); GLOMERULAR FILTR. RATE CALC > 60 mL/min (>60); GLUCOSE,RANDOM 116 mg/dL (70-110); POTASSIUM 4.1 mmol/L (3.5-5.1); SODIUM SERUM 146 mmol/L (136-145); UREA NITROGEN, BLOOD 14 mg/dL (7-18)
[2020-02-19] MEDS: FentaNYL CITRATE PF 500 MCG in DEXTROSE 5%-WATER 90 ML IV PRN (17:55)
[2020-02-19 18:09] LABS: GLUCOSE,POINT OF CARE 101 MG/DL (70-110)
[2020-02-19 19:05] LABS: BAND NEUTROPHILS % (MANUAL) 19 % (0-5); LYMPHOCYTES % (MANUAL) 9 % (22-44); METAMYELOCYTES % 1 % (0-0); MONOCYTES % (MANUAL) 11 % (2-9); MYELOCYTES % 1 % (0-0); SEGMENTED NEUTROPHILS % 59 % (40-70)
[2020-02-19] MEDS ORDERED: CALCIUM CHLORIDE 100 MG/ML 10 ML SYRINGE IVP ONE (20:00)
[2020-02-19] MEDS ORDERED: RINGERS SOLUTION,LACTATED 1,000 ML IV ONE (20:00)
[2020-02-19 22:32] LABS: ABG A-A DIFF O2 553.4 mmHg (10-20.0); ABG BASE EXCESS -6.5 mmol/L (-2.0-3.0); ABG CARBOXYHEMOGLOBIN 0.1 % (0.0-3.0); ABG HCO3 19.4 mmol/L (22.0-26.0); ABG METHEMOGLOBIN 0.4 % (0.0-1.5); ABG OXYGEN CONTENT 12.4 mL/dL (15.0-23.0); ABG OXYGEN SATURATION 97.9 % (95.0-98.0); ABG OXYHEMOGLOBIN 97.4 % (94.0-100.0); ABG PCO2 43 mmHg (35-45); ABG TOTAL HEMOGLOBIN 8.9 G/dL (12.0-18.0); O2 DEVICE,BLOOD GAS VENTILATOR (ROOM AIR); PO2, ARTERIAL BG 116.8 mmHg (80.0-100.0); SITE, BLOOD GAS ARTERIAL LINE; SOURCE, BLOOD GAS ARTERIAL; TEMPERATURE, FAHRENHEIT, BG 98.6 FAHREN (96.0-98.6)
[2020-02-19 22:33] LABS: PEEP,BG 5 cm H2O; VT, ABG 450 ml
[2020-02-19] MEDS: LEVOFLOXACIN 750 MG/D5% WATER 150 ML IV SCH (23:58)
[2020-02-20] VITALS (41 sets, daily range): BP systolic 98–125; BP diastolic 58–85
[2020-02-20 00:30] LABS: GLUCOSE,POINT OF CARE 157 MG/DL (70-110)
[2020-02-20] MEDS: CLINDAMYCIN 900 MG/D5% WATER 50 ML IV SCH ×4 (01:00→22:25)
[2020-02-20] MEDS: AMPICILLIN SODIUM 2 GM/NS 100 ML IV SCH ×4 (03:00→18:28)
[2020-02-20 07:01] LABS: BASOPHILS % (AUTO) 0.4 % (0.0-2.0); EOSINOPHILS % (AUTO) 0.2 % (1.0-6.0); HEMATOCRIT 26.3 % (41-53); HEMOGLOBIN 8.8 g/dL (13.5-17.5); LYMPHOCYTES % (AUTO) 13.9 % (22.0-44.0); MEAN CORPUSCULAR HEMOGLOBIN 29.1 pg (26.0-34.0); MEAN CORPUSCULAR HGB CONC 33.2 G/dL (31.0-37.0); MEAN CORPUSCULAR VOLUME 88 fL (80-100); MONOCYTES # (AUTO) 2.5 K/uL (0.1-1.0); MONOCYTES % (AUTO) 11.5 % (2.0-9.0); NEUTROPHILS # (AUTO) 15.9 K/uL (1.8-7.7); PLATELET COUNT (AUTO) 374 K/uL (150-450); RED BLOOD CELL COUNT(AUTO) 3.01 MIL/uL (4.50-5.90); RED CELL DISTRIBUTION WIDTH 16.7 % (11.5-14.5)
[2020-02-20 07:15] LABS: INR 1.2 (0.9-1.1); PROTHROMBIN TIME 12.6 SEC (9.4-11.6)
[2020-02-20 07:21] LABS: ANION GAP 10 mmol/L (8-16); CALCIUM, TOTAL 7.7 mg/dL (8.8-10.5); CARBON DIOXIDE 20 mmol/L (22-29); CHLORIDE 111 mmol/L (98-107); CREATININE 0.97 mg/dL (0.60-1.30); GLOMERULAR FILTR. RATE CALC > 60 mL/min (>60); GLUCOSE,RANDOM 204 mg/dL (70-110); SODIUM SERUM 141 mmol/L (136-145); UREA NITROGEN, BLOOD 15 mg/dL (7-18); VANCOMYCIN,RANDOM 38.8 mcg/mL (25.0-50.0)
[2020-02-20] MEDS ORDERED: VANCOMYCIN HCL 1 GM/D5% WATER 200 ML IV PRN (08:00)
[2020-02-20] MEDS: OXYGEN THERAPY IH SCH ×2 (08:00→20:00)
[2020-02-20] MEDS: FentaNYL CITRATE PF 500 MCG in DEXTROSE 5%-WATER 90 ML IV PRN (08:30)
[2020-02-20] MEDS: MULTIVITAMINS WITH MINERALS, THERAPEUTIC TABLET PO SCH (09:00)
[2020-02-20] MEDS: THIAMINE 100 MG TABLET PO SCH (09:00)
[2020-02-20 09:21] LABS: ABG A-A DIFF O2 191.5 mmHg (10-20.0); ABG BASE EXCESS -9.8 mmol/L (-2.0-3.0); ABG CARBOXYHEMOGLOBIN 0.2 % (0.0-3.0); ABG HCO3 17.2 mmol/L (22.0-26.0); ABG METHEMOGLOBIN 0.3 % (0.0-1.5); ABG OXYGEN CONTENT 13.5 mL/dL (15.0-23.0); ABG OXYGEN SATURATION 97.3 % (95.0-98.0); ABG OXYHEMOGLOBIN 96.8 % (94.0-100.0); ABG PCO2 34 mmHg (35-45); ABG PH 7.302 (7.350-7.450); ABG TOTAL HEMOGLOBIN 9.8 G/dL (12.0-18.0); PO2, ARTERIAL BG 91.5 mmHg (80.0-100.0); SOURCE, BLOOD GAS ARTERIAL; TEMPERATURE, FAHRENHEIT, BG 96.6 FAHREN (96.0-98.6)
[2020-02-20 09:22] LABS: O2 DEVICE,BLOOD GAS VENTILATOR (ROOM AIR); PEEP,BG 5 cm H2O; SITE, BLOOD GAS ARTERIAL LINE; VT, ABG 450 ml
[2020-02-20 09:27] LABS: ALBUMIN 1.3 g/dL (3.4-5.0)
[2020-02-20] MEDS ORDERED: CALCIUM CHLORIDE 100 MG/ML 10 ML SYRINGE IVP ONE (10:45)
[2020-02-20] MEDS ORDERED: DEXMEDETOMIDINE HCL 200 MCG in SODIUM CHLORIDE 0.9% 48 ML IV PRN (10:45)
[2020-02-20] MEDS ORDERED: SODIUM BICARBONATE [ADULT] 8.4% 50 MEQ/50 ML SYRINGE IVP ONE (11:00)
[2020-02-20] MEDS ORDERED: ALBUMIN HUMAN 5%-12.5GM/250ML 500 ML IV ONE (11:00)
[2020-02-20] MEDS ORDERED: MAGNESIUM SULFATE 2 GM/WATER 50 ML IV ONE (11:00)
[2020-02-20 15:12] LABS: GLUCOSE,POINT OF CARE 216 MG/DL (70-110)
[2020-02-20] MEDS: SODIUM CHLORIDE 0.9% 1,000 ML IV SCH (18:44)
[2020-02-20 18:49] LABS: GLUCOSE,POINT OF CARE 230 MG/DL (70-110)
[2020-02-20] MEDS: LEVOFLOXACIN 750 MG/D5% WATER 150 ML IV SCH (23:14)
[2020-02-21] VITALS: BP 114/62
[2020-02-21] MEDS: AMPICILLIN SODIUM 2 GM/NS 100 ML IV SCH ×4 (01:12→18:18)
[2020-02-21] MEDS: SODIUM CHLORIDE 0.9% 1,000 ML IV SCH ×4 (01:43→20:00)
[2020-02-21 02:09] LABS: GLUCOMETER DEV NAME(LOC) 4E.2; GLUCOSE,POINT OF CARE 220 MG/DL (70-110)
[2020-02-21] MEDS: INSULIN LISPRO 100 UNITS/ML SQ PRN ×3 (02:37→12:41)
[2020-02-21] MEDS: PROPOFOL 1000 MG/ISO-OSM 100 ML IV PRN ×4 (03:19→18:34)
[2020-02-21 04:00] VITALS: BP 136/76
[2020-02-21] MEDS: CLINDAMYCIN 900 MG/D5% WATER 50 ML IV SCH ×3 (05:42→21:00)
[2020-02-21 06:18] LABS: BASOPHILS % (AUTO) 0.9 % (0.0-2.0); EOSINOPHILS % (AUTO) 0.3 % (1.0-6.0); HEMATOCRIT 24.7 % (41-53); HEMOGLOBIN 8.2 g/dL (13.5-17.5); LYMPHOCYTES # (AUTO) 2.6 K/uL (1.0-4.8); LYMPHOCYTES % (AUTO) 15.1 % (22.0-44.0); MEAN CORPUSCULAR HGB CONC 33.3 G/dL (31.0-37.0); MEAN CORPUSCULAR VOLUME 87 fL (80-100); MONOCYTES # (AUTO) 1.4 K/uL (0.1-1.0); MONOCYTES % (AUTO) 8.1 % (2.0-9.0); NEUTROPHILS # (AUTO) 13.1 K/uL (1.8-7.7); NEUTROPHILS % (AUTO) 75.6 % (40.0-70.0); PLATELET COUNT (AUTO) 336 K/uL (150-450); RED BLOOD CELL COUNT(AUTO) 2.83 MIL/uL (4.50-5.90); RED CELL DISTRIBUTION WIDTH 16.9 % (11.5-14.5)
[2020-02-21 06:50] LABS: ANION GAP 13 mmol/L (8-16); C-REACTIVE PROTEIN QUANT 9.17 mg/dL (0.00-0.30); CALCIUM, TOTAL 7.9 mg/dL (8.8-10.5); CARBON DIOXIDE 18 mmol/L (22-29); CHLORIDE 112 mmol/L (98-107); CREATININE 1.11 mg/dL (0.60-1.30); GLOMERULAR FILTR. RATE CALC > 60 mL/min (>60); GLUCOSE,RANDOM 234 mg/dL (70-110); POTASSIUM 3.5 mmol/L (3.5-5.1); SODIUM SERUM 143 mmol/L (136-145); UREA NITROGEN, BLOOD 14 mg/dL (7-18); VANCOMYCIN,RANDOM 26.7 mcg/mL (25.0-50.0)
[2020-02-21 07:19] LABS: GLUCOMETER DEV NAME(LOC) 4E.2; GLUCOSE,POINT OF CARE 199 MG/DL (70-110)
[2020-02-21] MEDS: OXYGEN THERAPY IH SCH ×2 (08:00→20:00)
[2020-02-21] MEDS: THIAMINE 100 MG TABLET PO SCH (10:31)
[2020-02-21] MEDS: MULTIVITAMINS WITH MINERALS, THERAPEUTIC TABLET PO SCH (10:31)
[2020-02-21 12:00] VITALS: BP 134/81
[2020-02-21 16:00] VITALS: BP 109/68
[2020-02-21 17:15] LABS: GLUCOMETER DEV NAME(LOC) 4E.2; GLUCOSE,POINT OF CARE 157 MG/DL (70-110)
[2020-02-21] MEDS: FLUCONAZOLE 400 MG/NACL ISOOSM 200 ML IV SCH (18:00)
[2020-02-21] MEDS: NOREPINEPHRINE 4 MG/D5%-WATER 250 ML IV PRN ×2 (18:43→21:09)
[2020-02-21] MEDS: LEVOFLOXACIN 750 MG/D5% WATER 150 ML IV SCH (20:00)
[2020-02-21 23:18] LABS: GLUCOMETER DEV NAME(LOC) 4E.2; GLUCOSE,POINT OF CARE 117 MG/DL (70-110)
[2020-02-21 23:18] LABS: GLUCOMETER DEV NAME(LOC) 4E.2; GLUCOSE,POINT OF CARE 103 MG/DL (70-110)
[2020-02-22 00:31] VITALS: BP 114/58
[2020-02-22] MEDS: SODIUM CHLORIDE 0.9% 1,000 ML IV SCH ×3 (03:42→16:00)
[2020-02-22 04:00] VITALS: BP 121/62
[2020-02-22] MEDS: CLINDAMYCIN 900 MG/D5% WATER 50 ML IV SCH ×3 (05:43→21:00)
[2020-02-22 06:15] LABS: HEMATOCRIT 26.3 % (41-53); HEMOGLOBIN 8.8 g/dL (13.5-17.5); MEAN CORPUSCULAR HEMOGLOBIN 28.6 pg (26.0-34.0); MEAN CORPUSCULAR HGB CONC 33.6 G/dL (31.0-37.0); MEAN CORPUSCULAR VOLUME 85 fL (80-100); PLATELET COUNT (AUTO) 370 K/uL (150-450); RED BLOOD CELL COUNT(AUTO) 3.08 MIL/uL (4.50-5.90)
[2020-02-22 06:19] LABS: ANION GAP 11 mmol/L (8-16); CALCIUM, TOTAL 7.3 mg/dL (8.8-10.5); CARBON DIOXIDE 20 mmol/L (22-29); CHLORIDE 115 mmol/L (98-107); CREATININE 0.89 mg/dL (0.60-1.30); GLOMERULAR FILTR. RATE CALC > 60 mL/min (>60); GLUCOSE,RANDOM 104 mg/dL (70-110); SODIUM SERUM 146 mmol/L (136-145); UREA NITROGEN, BLOOD 12 mg/dL (7-18); VANCOMYCIN,RANDOM 21.2 mcg/mL (25.0-50.0)
[2020-02-22 06:36] LABS: POTASSIUM 2.9 mmol/L (3.5-5.1)
[2020-02-22] MEDS ORDERED: POTASSIUM CHLORIDE 10% 40 MEQ/30 ML LIQUID UDCUP NG ONE (07:00)
[2020-02-22] MEDS: AMPICILLIN SODIUM 2 GM/NS 100 ML IV SCH ×4 (07:02→18:38)
[2020-02-22 07:13] LABS: GLUCOMETER DEV NAME(LOC) 4E.2; GLUCOSE,POINT OF CARE 86 MG/DL (70-110)
[2020-02-22] MEDS: POTASSIUM CHL 10 MEQ/WATER 50 ML IV SCH ×4 (07:31→11:30)
[2020-02-22] MEDS: OXYGEN THERAPY IH SCH ×2 (07:53→20:10)
[2020-02-22] MEDS: MULTIVITAMINS WITH MINERALS, THERAPEUTIC TABLET PO SCH (07:56)
[2020-02-22] MEDS: THIAMINE 100 MG TABLET PO SCH (07:56)
[2020-02-22 08:00] VITALS: BP 116/72
[2020-02-22 12:00] VITALS: BP 129/57
[2020-02-22 12:46] LABS: BAND NEUTROPHILS % (MANUAL) 6 % (0-5); EOSINOPHILS % (MANUAL) 1 % (1-6); LYMPHOCYTES % (MANUAL) 15 % (22-44); METAMYELOCYTES % 2 % (0-0); MONOCYTES % (MANUAL) 7 % (2-9); MYELOCYTES % 1 % (0-0); SEGMENTED NEUTROPHILS % 68 % (40-70)
[2020-02-22 16:00] VITALS: BP 115/62
[2020-02-22] MEDS: FLUCONAZOLE 400 MG/NACL ISOOSM 200 ML IV SCH (18:00)
[2020-02-22] MEDS: PROPOFOL 1000 MG/ISO-OSM 100 ML IV PRN (18:37)
[2020-02-22 20:00] VITALS: BP 112/65
[2020-02-22] MEDS ORDERED: VANCOMYCIN HCL 1 GM/D5% WATER 200 ML IV ONE (20:00)
[2020-02-22] MEDS: LEVOFLOXACIN 750 MG/D5% WATER 150 ML IV SCH (20:00)
[2020-02-22 21:30] LABS: GLUCOMETER DEV NAME(LOC) 4E.2; GLUCOSE,POINT OF CARE 77 MG/DL (70-110)
[2020-02-22 21:30] LABS: GLUCOMETER DEV NAME(LOC) 4E.2; GLUCOSE,POINT OF CARE 96 MG/DL (70-110)
[2020-02-22 21:30] LABS: GLUCOMETER DEV NAME(LOC) 4E.2; GLUCOSE,POINT OF CARE 99 MG/DL (70-110)
[2020-02-23] MEDS: SODIUM CHLORIDE 0.9% 1,000 ML IV SCH ×5 (00:06→18:43)
[2020-02-23 03:57] VITALS: BP 122/81
[2020-02-23] MEDS: CLINDAMYCIN 900 MG/D5% WATER 50 ML IV SCH ×2 (04:53→13:58)
[2020-02-23 06:15] LABS: GLUCOSE,POINT OF CARE 195 MG/DL (70-110)
[2020-02-23] MEDS: AMPICILLIN SODIUM 2 GM/NS 100 ML IV SCH ×4 (06:36→17:05)
[2020-02-23 06:42] VITALS: BP 113/76
[2020-02-23 06:48] LABS: BASOPHILS % (AUTO) 0.6 % (0.0-2.0); EOSINOPHILS % (AUTO) 0.1 % (1.0-6.0); HEMATOCRIT 27.3 % (41-53); HEMOGLOBIN 8.9 g/dL (13.5-17.5); LYMPHOCYTES # (AUTO) 3.1 K/uL (1.0-4.8); LYMPHOCYTES % (AUTO) 16.8 % (22.0-44.0); MEAN CORPUSCULAR HEMOGLOBIN 28.1 pg (26.0-34.0); MEAN CORPUSCULAR HGB CONC 32.6 G/dL (31.0-37.0); MEAN CORPUSCULAR VOLUME 86 fL (80-100); MONOCYTES # (AUTO) 1.4 K/uL (0.1-1.0); MONOCYTES % (AUTO) 7.7 % (2.0-9.0); NEUTROPHILS # (AUTO) 13.8 K/uL (1.8-7.7); NEUTROPHILS % (AUTO) 74.8 % (40.0-70.0); PLATELET COUNT (AUTO) 419 K/uL (150-450); RED BLOOD CELL COUNT(AUTO) 3.17 MIL/uL (4.50-5.90); RED CELL DISTRIBUTION WIDTH 17.5 % (11.5-14.5)
[2020-02-23 07:10] LABS: ALANINE AMINOTRANSFERASE 6 U/L (12-78); ALBUMIN 1.1 g/dL (3.4-5.0); ALKALINE PHOSPHATASE 113 U/L (46-116); ANION GAP 13 mmol/L (8-16); ASPARTATE AMINOTRANSFERASE 19 U/L (15-37); BILIRUBIN,TOTAL 0.2 mg/dL (0.1-1.0); C-REACTIVE PROTEIN QUANT 8.23 mg/dL (0.00-0.30); CALCIUM, TOTAL 7.1 mg/dL (8.8-10.5); CARBON DIOXIDE 20 mmol/L (22-29); CHLORIDE 112 mmol/L (98-107); CREATININE 0.98 mg/dL (0.60-1.30); GLOMERULAR FILTR. RATE CALC > 60 mL/min (>60); GLUCOSE,RANDOM 198 mg/dL (70-110); POTASSIUM 3.9 mmol/L (3.5-5.1); SODIUM SERUM 145 mmol/L (136-145); UREA NITROGEN, BLOOD 11 mg/dL (7-18)
[2020-02-23 08:00] VITALS: BP 93/63
[2020-02-23] MEDS ORDERED: MAGNESIUM SULFATE 4 GM/WATER 100 ML IV PRN (08:15)
[2020-02-23] MEDS: THIAMINE 100 MG TABLET PO SCH (08:23)
[2020-02-23] MEDS: MULTIVITAMINS WITH MINERALS, THERAPEUTIC TABLET PO SCH (08:23)
[2020-02-23] MEDS: PROPOFOL 1000 MG/ISO-OSM 100 ML IV PRN ×3 (08:23→22:48)
[2020-02-23] MEDS: OXYGEN THERAPY IH SCH ×2 (08:24→20:00)
[2020-02-23] MEDS: INSULIN LISPRO 100 UNITS/ML SQ PRN ×2 (10:32→17:36)
[2020-02-23 12:00] VITALS: BP 117/67
[2020-02-23 14:22] LABS: ABG A-A DIFF O2 102.1 mmHg (10-20.0); ABG BASE EXCESS -10.8 mmol/L (-2.0-3.0); ABG CARBOXYHEMOGLOBIN 0.1 % (0.0-3.0); ABG HCO3 16.8 mmol/L (22.0-26.0); ABG METHEMOGLOBIN 0.3 % (0.0-1.5); ABG OXYGEN CONTENT 13.9 mL/dL (15.0-23.0); ABG OXYGEN SATURATION 95.8 % (95.0-98.0); ABG OXYHEMOGLOBIN 95.4 % (94.0-100.0); ABG PCO2 26 mmHg (35-45); ABG PH 7.363 (7.350-7.450); ABG TOTAL HEMOGLOBIN 10.3 G/dL (12.0-18.0); PO2, ARTERIAL BG 81.6 mmHg (80.0-100.0); SOURCE, BLOOD GAS ARTERIAL
[2020-02-23 14:23] LABS: O2 DEVICE,BLOOD GAS VENTILATOR (ROOM AIR); SITE, BLOOD GAS RT RADIAL
[2020-02-23 14:24] LABS: CPAP, BG 5 cm H2O; PRESSURE SUPPORT, BG 8 cm H2O; VENT MODE, BG CPAP (ROOM AIR)
[2020-02-23 16:00] VITALS: BP 104/71
[2020-02-23] MEDS: MetroNIDAZOLE 500 MG/NACL 100 ML IV SCH (17:37)
[2020-02-23] MEDS: NOREPINEPHRINE 4 MG/D5%-WATER 250 ML IV PRN (18:03)
[2020-02-23] MEDS: FLUCONAZOLE 400 MG/NACL ISOOSM 200 ML IV SCH (18:42)
[2020-02-23 19:15] LABS: GLUCOMETER DEV NAME(LOC) 4E.2; GLUCOSE,POINT OF CARE 185 MG/DL (70-110)
[2020-02-23] MEDS ORDERED: ALBUMIN HUMAN 25%-25GM/100ML 100 ML IV ONE (19:15)
[2020-02-23 19:51] LABS: GLUCOSE,POINT OF CARE 162 MG/DL (70-110)
[2020-02-23 20:00] VITALS: BP 112/78
[2020-02-23] MEDS: LEVOFLOXACIN 750 MG/D5% WATER 150 ML IV SCH (22:35)
[2020-02-24] VITALS: BP 130/86
[2020-02-24] MEDS: MetroNIDAZOLE 500 MG/NACL 100 ML IV SCH ×3 (00:39→18:37)
[2020-02-24] MEDS: SODIUM CHLORIDE 0.9% 1,000 ML IV SCH (00:39)
[2020-02-24] MEDS: AMPICILLIN SODIUM 2 GM/NS 100 ML IV SCH ×4 (00:40→17:48)
[2020-02-24 04:00] VITALS: BP 142/86
[2020-02-24 06:11] LABS: BASOPHILS % (AUTO) 0.6 % (0.0-2.0); EOSINOPHILS % (AUTO) 0.4 % (1.0-6.0); HEMATOCRIT 23.7 % (41-53); LYMPHOCYTES % (AUTO) 20.9 % (22.0-44.0); MEAN CORPUSCULAR HEMOGLOBIN 29.2 pg (26.0-34.0); MEAN CORPUSCULAR HGB CONC 33.9 G/dL (31.0-37.0); MEAN CORPUSCULAR VOLUME 86 fL (80-100); MONOCYTES # (AUTO) 1.1 K/uL (0.1-1.0); MONOCYTES % (AUTO) 7.8 % (2.0-9.0); NEUTROPHILS # (AUTO) 10.2 K/uL (1.8-7.7); NEUTROPHILS % (AUTO) 70.3 % (40.0-70.0); PLATELET COUNT (AUTO) 326 K/uL (150-450); RED BLOOD CELL COUNT(AUTO) 2.76 MIL/uL (4.50-5.90); RED CELL DISTRIBUTION WIDTH 17.9 % (11.5-14.5)
[2020-02-24 06:38] LABS: ANION GAP 13 mmol/L (8-16); C-REACTIVE PROTEIN QUANT 7.84 mg/dL (0.00-0.30); CARBON DIOXIDE 19 mmol/L (22-29); CHLORIDE 116 mmol/L (98-107); GLOMERULAR FILTR. RATE CALC > 60 mL/min (>60); GLUCOSE,RANDOM 81 mg/dL (70-110); SODIUM SERUM 148 mmol/L (136-145); UREA NITROGEN, BLOOD 10 mg/dL (7-18); VANCOMYCIN,RANDOM 20.8 mcg/mL (25.0-50.0)
[2020-02-24] MEDS: DEXTROSE 50%-WATER 25 GM/50 ML SYRINGE IVP PRN ×2 (06:43→11:33)
[2020-02-24 06:47] LABS: POTASSIUM 2.9 mmol/L (3.5-5.1)
[2020-02-24] MEDS ORDERED: DEXTROSE 5%-0.45% SODIUM CHL 1,000 ML IV SCH (07:00)
[2020-02-24 07:49] LABS: GLUCOSE,POINT OF CARE 103 MG/DL (70-110)
[2020-02-24] MEDS: POTASSIUM CHL 10 MEQ/WATER 50 ML IV PRN ×3 (07:49→11:03)
[2020-02-24 08:00] VITALS: BP 108/68
[2020-02-24] MEDS: OXYGEN THERAPY IH SCH (08:25)
[2020-02-24] MEDS: MULTIVITAMINS WITH MINERALS, THERAPEUTIC TABLET PO SCH (08:26)
[2020-02-24] MEDS: THIAMINE 100 MG TABLET PO SCH (08:26)
[2020-02-24] MEDS ORDERED: SODIUM CHLORIDE 0.9% 250 ML IV ONE ×3 (08:28→19:11)
[2020-02-24 12:00] VITALS: BP 129/92
[2020-02-24] MEDS: MORPHINE SULFATE 2 MG/ML SYRINGE IVP PRN (12:27)
[2020-02-24 12:39] LABS: GLUCOSE,POINT OF CARE 37 MG/DL (70-110)
[2020-02-24] MEDS ORDERED: DEXTROSE 10%-WATER 1,000 ML IV ONE (13:15)
[2020-02-24] MEDS: LORazepam 2 MG/ML VIAL IVP PRN (13:34)
[2020-02-24 13:43] LABS: ABG BASE EXCESS -8.7 mmol/L (-2.0-3.0); ABG CARBOXYHEMOGLOBIN 1.1 % (0.0-3.0); ABG HCO3 17.9 mmol/L (22.0-26.0); ABG METHEMOGLOBIN 0.3 % (0.0-1.5); ABG OXYGEN CONTENT 9.9 mL/dL (15.0-23.0); ABG OXYGEN SATURATION 97.3 % (95.0-98.0); ABG OXYHEMOGLOBIN 95.9 % (94.0-100.0); ABG PCO2 29 mmHg (35-45); ABG PH 7.376 (7.350-7.450); PO2, ARTERIAL BG 103.2 mmHg (80.0-100.0); SOURCE, BLOOD GAS ARTERIAL; TEMPERATURE, FAHRENHEIT, BG 98.6 FAHREN (96.0-98.6)
[2020-02-24 13:44] LABS: ABG TOTAL HEMOGLOBIN 7.2 G/dL (12.0-18.0); SITE, BLOOD GAS RT RADIAL
[2020-02-24 13:45] LABS: O2 DEVICE,BLOOD GAS VENTILATOR (ROOM AIR); PEEP,BG 0 cm H2O; PRESSURE SUPPORT, BG 8 cm H2O; SPONTANEOUS VT, BG 462 ml; VENT MODE, BG SPONTANEOUS (ROOM AIR)
[2020-02-24] MEDS: POTASSIUM CHLORIDE 20 MEQ ER TABLET PO PRN (14:07)
[2020-02-24 14:33] LABS: GLUCOSE,POINT OF CARE 77 MG/DL (70-110)
[2020-02-24 14:33] LABS: GLUCOSE,POINT OF CARE 54 MG/DL (70-110)
[2020-02-24 14:33] LABS: GLUCOSE,POINT OF CARE 95 MG/DL (70-110)
[2020-02-24 16:00] VITALS: BP 101/69
[2020-02-24] MEDS: MAGNESIUM SULFATE 2 GM/WATER 50 ML IV PRN (16:04)
[2020-02-24] MEDS: PROPOFOL 1000 MG/ISO-OSM 100 ML IV PRN ×2 (17:47→23:12)
[2020-02-24] MEDS ORDERED: SODIUM CHLORIDE 77 MEQ in DEXTROSE 10%-WATER 1,000 ML IV SCH (18:15)
[2020-02-24] MEDS: FLUCONAZOLE 400 MG/NACL ISOOSM 200 ML IV SCH (18:37)
[2020-02-24 18:50] LABS: GLUCOSE,POINT OF CARE 98 MG/DL (70-110)
[2020-02-24 20:00] VITALS: BP 106/76
[2020-02-24] MEDS ORDERED: VANCOMYCIN HCL 1 GM/D5% WATER 200 ML IV ONE (20:00)
[2020-02-24] MEDS: LEVOFLOXACIN 750 MG/D5% WATER 150 ML IV SCH (20:08)
[2020-02-24] MEDS ORDERED: DEXMEDETOMIDINE HCL 200 MCG in SODIUM CHLORIDE 0.9% 48 ML IV PRN (20:53)
[2020-02-24] MEDS: NOREPINEPHRINE 4 MG/D5%-WATER 250 ML IV PRN (22:11)
[2020-02-25] VITALS (16 sets, daily range): BP systolic 99–134; BP diastolic 60–87
[2020-02-25] MEDS: INSULIN LISPRO 100 UNITS/ML SQ PRN ×2 (00:23→05:03)
[2020-02-25] MEDS: AMPICILLIN SODIUM 2 GM/NS 100 ML IV SCH ×4 (00:31→17:03)
[2020-02-25 00:38] LABS: GLUCOMETER DEV NAME(LOC) 4E.2; GLUCOSE,POINT OF CARE 115 MG/DL (70-110)
[2020-02-25 00:38] LABS: GLUCOMETER DEV NAME(LOC) 4E.2; GLUCOSE,POINT OF CARE 213 MG/DL (70-110)
[2020-02-25] MEDS: ALBUMIN HUMAN 25%-25GM/100ML 100 ML IV PRN ×2 (00:53→16:06)
[2020-02-25] MEDS: OXYGEN THERAPY IH SCH ×3 (01:10→20:35)
[2020-02-25] MEDS: MetroNIDAZOLE 500 MG/NACL 100 ML IV SCH ×3 (01:11→16:06)
[2020-02-25] MEDS: MORPHINE SULFATE 2 MG/ML SYRINGE IVP PRN ×2 (02:50→17:03)
[2020-02-25 06:23] LABS: GLUCOSE,POINT OF CARE 171 MG/DL (70-110)
[2020-02-25 06:33] LABS: ALANINE AMINOTRANSFERASE 7 U/L (12-78); ALBUMIN 1.6 g/dL (3.4-5.0); ALKALINE PHOSPHATASE 82 U/L (46-116); ANION GAP 12 mmol/L (8-16); ASPARTATE AMINOTRANSFERASE 14 U/L (15-37); BILIRUBIN,TOTAL 0.3 mg/dL (0.1-1.0); C-REACTIVE PROTEIN QUANT 6.46 mg/dL (0.00-0.30); CALCIUM, TOTAL 7.2 mg/dL (8.8-10.5); CARBON DIOXIDE 19 mmol/L (22-29); CHLORIDE 116 mmol/L (98-107); CREATININE 0.84 mg/dL (0.60-1.30); GLOMERULAR FILTR. RATE CALC > 60 mL/min (>60); GLUCOSE,RANDOM 193 mg/dL (70-110); PHOSPHORUS 3.4 mg/dL (2.5-4.9); POTASSIUM 3.5 mmol/L (3.5-5.1); SODIUM SERUM 147 mmol/L (136-145); TOTAL PROTEIN, SERUM 4.6 g/dL (6.4-8.2); UREA NITROGEN, BLOOD 9 mg/dL (7-18)
[2020-02-25] MEDS: PROPOFOL 1000 MG/ISO-OSM 100 ML IV PRN ×3 (06:41→22:55)
[2020-02-25] MEDS: POTASSIUM CHL 10 MEQ/WATER 50 ML IV PRN ×3 (06:53→08:19)
[2020-02-25 06:58] LABS: BASOPHILS % (AUTO) 0.5 % (0.0-2.0); EOSINOPHILS % (AUTO) 0.3 % (1.0-6.0); LYMPHOCYTES # (AUTO) 2.2 K/uL (1.0-4.8); MEAN CORPUSCULAR HEMOGLOBIN 27.7 pg (26.0-34.0); MEAN CORPUSCULAR HGB CONC 31.9 G/dL (31.0-37.0); MEAN CORPUSCULAR VOLUME 87 fL (80-100); MONOCYTES # (AUTO) 0.8 K/uL (0.1-1.0); NEUTROPHILS # (AUTO) 8.7 K/uL (1.8-7.7); NEUTROPHILS % (AUTO) 73.2 % (40.0-70.0); PLATELET COUNT (AUTO) 249 K/uL (150-450); RED BLOOD CELL COUNT(AUTO) 2.27 MIL/uL (4.50-5.90); RED CELL DISTRIBUTION WIDTH 18.1 % (11.5-14.5)
[2020-02-25 07:01] LABS: HEMATOCRIT 19.6 % (41-53); HEMOGLOBIN 6.3 g/dL (13.5-17.5)
[2020-02-25] MEDS: MULTIVITAMINS WITH MINERALS, THERAPEUTIC TABLET PO SCH (08:26)
[2020-02-25] MEDS: THIAMINE 100 MG TABLET PO SCH (08:27)
[2020-02-25] MEDS: MAGNESIUM OXIDE 400 MG TABLET PO PRN ×2 (09:21→17:49)
[2020-02-25] MEDS ORDERED: SODIUM CHLORIDE 0.9% 500 ML IV ONE (09:40)
[2020-02-25 11:35] LABS: C.DIFF GDH ANTIGEN, Stool Negative (Negative); C.DIFF TOXINS A&B, Stool Negative (Negative)
[2020-02-25 12:26] LABS: C.DIFF GDH ANTIGEN, Stool Negative (Negative); C.DIFF TOXINS A&B, Stool Negative (Negative)
[2020-02-25 12:42] LABS: HIV 1-2 SCREEN 4TH GEN W/RFLX Non Reactive (Non Reactive)
[2020-02-25] MEDS: FLUCONAZOLE 400 MG/NACL ISOOSM 200 ML IV SCH (17:50)
[2020-02-25 18:28] LABS: GLUCOSE,POINT OF CARE 111 MG/DL (70-110)
[2020-02-25 20:30] LABS: HEMATOCRIT 23.5 % (41-53); HEMOGLOBIN 7.6 g/dL (13.5-17.5)
[2020-02-25] MEDS: LEVOFLOXACIN 750 MG/D5% WATER 150 ML IV SCH (20:34)
[2020-02-26] VITALS (7 sets, daily range): BP systolic 117–143; BP diastolic 76–93
[2020-02-26] MEDS: MetroNIDAZOLE 500 MG/NACL 100 ML IV SCH ×3 (00:04→16:28)
[2020-02-26] MEDS: AMPICILLIN SODIUM 2 GM/NS 100 ML IV SCH ×4 (00:04→17:30)
[2020-02-26] MEDS: PROPOFOL 1000 MG/ISO-OSM 100 ML IV PRN ×3 (05:49→21:15)
[2020-02-26] MEDS: INSULIN LISPRO 100 UNITS/ML SQ PRN (06:21)
[2020-02-26 06:46] LABS: GLUCOSE,POINT OF CARE 134 MG/DL (70-110)
[2020-02-26 06:46] LABS: GLUCOMETER DEV NAME(LOC) 4E.2; GLUCOSE,POINT OF CARE 159 MG/DL (70-110)
[2020-02-26 06:57] LABS: BASOPHILS % (AUTO) 0.7 % (0.0-2.0); EOSINOPHILS % (AUTO) 0.7 % (1.0-6.0); HEMATOCRIT 23.7 % (41-53); HEMOGLOBIN 8.1 g/dL (13.5-17.5); LYMPHOCYTES # (AUTO) 2.4 K/uL (1.0-4.8); LYMPHOCYTES % (AUTO) 17.4 % (22.0-44.0); MEAN CORPUSCULAR HEMOGLOBIN 29.8 pg (26.0-34.0); MEAN CORPUSCULAR HGB CONC 34.2 G/dL (31.0-37.0); MEAN CORPUSCULAR VOLUME 87 fL (80-100); MONOCYTES # (AUTO) 0.9 K/uL (0.1-1.0); MONOCYTES % (AUTO) 6.7 % (2.0-9.0); NEUTROPHILS # (AUTO) 10.4 K/uL (1.8-7.7); NEUTROPHILS % (AUTO) 74.5 % (40.0-70.0); PLATELET COUNT (AUTO) 220 K/uL (150-450); RED BLOOD CELL COUNT(AUTO) 2.72 MIL/uL (4.50-5.90); RED CELL DISTRIBUTION WIDTH 17.2 % (11.5-14.5)
[2020-02-26 07:03] LABS: ANION GAP 10 mmol/L (8-16); C-REACTIVE PROTEIN QUANT 5.48 mg/dL (0.00-0.30); CALCIUM, TOTAL 7.4 mg/dL (8.8-10.5); CARBON DIOXIDE 19 mmol/L (22-29); CHLORIDE 114 mmol/L (98-107); GLOMERULAR FILTR. RATE CALC > 60 mL/min (>60); GLUCOSE,RANDOM 179 mg/dL (70-110); POTASSIUM 3.7 mmol/L (3.5-5.1); SODIUM SERUM 143 mmol/L (136-145); UREA NITROGEN, BLOOD 10 mg/dL (7-18); VANCOMYCIN,RANDOM 16.5 mcg/mL (25.0-50.0)
[2020-02-26] MEDS: OXYGEN THERAPY IH SCH (08:39)
[2020-02-26] MEDS: MULTIVITAMINS WITH MINERALS, THERAPEUTIC TABLET PO SCH (08:40)
[2020-02-26] MEDS: THIAMINE 100 MG TABLET PO SCH (08:40)
[2020-02-26] MEDS ORDERED: VANCOMYCIN HCL 750 MG in DEXTROSE 5%-WATER 250 ML IV ONE (09:00)
[2020-02-26] MEDS: MAGNESIUM SULFATE 2 GM/WATER 50 ML IV PRN (09:26)
[2020-02-26 12:08] LABS: ALBUMIN 1.7 g/dL (3.4-5.0)
[2020-02-26 12:27] LABS: GLUCOSE,POINT OF CARE 198 MG/DL (70-110)
[2020-02-26] MEDS: MORPHINE SULFATE 2 MG/ML SYRINGE IVP PRN (15:42)
[2020-02-26] MEDS ORDERED: SODIUM CHLORIDE 0.9% 250 ML IV ONE (17:26)
[2020-02-26] MEDS: FLUCONAZOLE 400 MG/NACL ISOOSM 200 ML IV SCH (17:30)
[2020-02-26] MEDS: LEVOFLOXACIN 750 MG/D5% WATER 150 ML IV SCH (21:14)
[2020-02-27] VITALS: BP 123/81
[2020-02-27] MEDS: AMPICILLIN SODIUM 2 GM/NS 100 ML IV SCH ×4 (00:21→17:08)
[2020-02-27] MEDS: MetroNIDAZOLE 500 MG/NACL 100 ML IV SCH ×3 (01:08→16:43)
[2020-02-27] MEDS: INSULIN LISPRO 100 UNITS/ML SQ PRN ×2 (01:32→18:22)
[2020-02-27 02:49] LABS: GLUCOSE,POINT OF CARE 135 MG/DL (70-110)
[2020-02-27 02:49] LABS: GLUCOSE,POINT OF CARE 129 MG/DL (70-110)
[2020-02-27 02:50] LABS: GLUCOSE,POINT OF CARE 165 MG/DL (70-110)
[2020-02-27 04:00] VITALS: BP 127/94
[2020-02-27] MEDS: PROPOFOL 1000 MG/ISO-OSM 100 ML IV PRN ×2 (05:34→14:53)
[2020-02-27 06:30] LABS: BASOPHILS % (AUTO) 0.8 % (0.0-2.0); EOSINOPHILS % (AUTO) 0.6 % (1.0-6.0); HEMATOCRIT 24.6 % (41-53); HEMOGLOBIN 8.3 g/dL (13.5-17.5); LYMPHOCYTES # (AUTO) 2.1 K/uL (1.0-4.8); LYMPHOCYTES % (AUTO) 18.2 % (22.0-44.0); MEAN CORPUSCULAR HEMOGLOBIN 29.6 pg (26.0-34.0); MEAN CORPUSCULAR HGB CONC 33.6 G/dL (31.0-37.0); MEAN CORPUSCULAR VOLUME 88 fL (80-100); MONOCYTES # (AUTO) 0.8 K/uL (0.1-1.0); MONOCYTES % (AUTO) 6.4 % (2.0-9.0); NEUTROPHILS # (AUTO) 8.7 K/uL (1.8-7.7); PLATELET COUNT (AUTO) 177 K/uL (150-450); RED BLOOD CELL COUNT(AUTO) 2.79 MIL/uL (4.50-5.90); RED CELL DISTRIBUTION WIDTH 17.1 % (11.5-14.5)
[2020-02-27 07:03] LABS: ALANINE AMINOTRANSFERASE 6 U/L (12-78); ALBUMIN 1.3 g/dL (3.4-5.0); ALKALINE PHOSPHATASE 91 U/L (46-116); ANION GAP 8 mmol/L (8-16); ASPARTATE AMINOTRANSFERASE 18 U/L (15-37); BILIRUBIN,TOTAL 0.4 mg/dL (0.1-1.0); C-REACTIVE PROTEIN QUANT 5.05 mg/dL (0.00-0.30); CALCIUM, TOTAL 7.4 mg/dL (8.8-10.5); CARBON DIOXIDE 21 mmol/L (22-29); CHLORIDE 114 mmol/L (98-107); CREATININE 0.58 mg/dL (0.60-1.30); GLOMERULAR FILTR. RATE CALC > 60 mL/min (>60); GLUCOSE,RANDOM 117 mg/dL (70-110); SODIUM SERUM 143 mmol/L (136-145); TOTAL PROTEIN, SERUM 4.7 g/dL (6.4-8.2); UREA NITROGEN, BLOOD 10 mg/dL (7-18)
[2020-02-27 07:27] LABS: GLUCOSE,POINT OF CARE 97 MG/DL (70-110)
[2020-02-27] MEDS: VANCOMYCIN HCL 500 MG in DEXTROSE 5%-WATER 100 ML IV SCH (07:46)
[2020-02-27 08:00] VITALS: BP 121/59
[2020-02-27] MEDS: THIAMINE 100 MG TABLET PO SCH (08:05)
[2020-02-27] MEDS ORDERED: SODIUM CHLORIDE 0.9% 500 ML IV ONE (08:26)
[2020-02-27] MEDS: MULTIVITAMINS WITH MINERALS, THERAPEUTIC TABLET PO SCH (08:27)
[2020-02-27] MEDS ORDERED: SODIUM CHLORIDE 0.9% 250 ML IV ONE (08:41)
[2020-02-27] MEDS: MAGNESIUM SULFATE 2 GM/WATER 50 ML IV PRN (09:36)
[2020-02-27] MEDS: POTASSIUM CHL 10 MEQ/WATER 50 ML IV PRN ×5 (14:11→22:49)
[2020-02-27 16:00] VITALS: BP 96/70
[2020-02-27] MEDS: FLUCONAZOLE 400 MG/NACL ISOOSM 200 ML IV SCH (18:20)
[2020-02-27 19:30] LABS: ABG A-A DIFF O2 95.9 mmHg (10-20.0); ABG BASE EXCESS -8.3 mmol/L (-2.0-3.0); ABG CARBOXYHEMOGLOBIN 0.4 % (0.0-3.0); ABG HCO3 18.5 mmol/L (22.0-26.0); ABG METHEMOGLOBIN 0.3 % (0.0-1.5); ABG OXYGEN CONTENT 14.7 mL/dL (15.0-23.0); ABG OXYGEN SATURATION 97.4 % (95.0-98.0); ABG OXYHEMOGLOBIN 96.7 % (94.0-100.0); ABG PCO2 27 mmHg (35-45); ABG PH 7.405 (7.350-7.450); ABG TOTAL HEMOGLOBIN 10.7 G/dL (12.0-18.0); PO2, ARTERIAL BG 88.1 mmHg (80.0-100.0); SOURCE, BLOOD GAS ARTERIAL; TEMPERATURE, FAHRENHEIT, BG 94.2 FAHREN (96.0-98.6)
[2020-02-27 19:31] LABS: O2 DEVICE,BLOOD GAS VENTILATOR (ROOM AIR); SITE, BLOOD GAS RT RADIAL
[2020-02-27 19:32] LABS: PEEP,BG 5 cm H2O; PRESSURE SUPPORT, BG 8 cm H2O; SPONTANEOUS VT, BG 672 ml; VENT MODE, BG CPAP (ROOM AIR)
[2020-02-27] MEDS: LEVOFLOXACIN 750 MG/D5% WATER 150 ML IV SCH (20:58)
[2020-02-27] MEDS: MORPHINE SULFATE 2 MG/ML SYRINGE IVP PRN (21:59)
[2020-02-27 22:01] VITALS: BP 129/96
[2020-02-28] VITALS: BP 109/82
[2020-02-28] MEDS: AMPICILLIN SODIUM 2 GM/NS 100 ML IV SCH ×4 (00:10→19:54)
[2020-02-28] MEDS: MetroNIDAZOLE 500 MG/NACL 100 ML IV SCH ×3 (01:04→19:05)
[2020-02-28 04:00] VITALS: BP 112/82
[2020-02-28] MEDS: MORPHINE SULFATE 2 MG/ML SYRINGE IVP PRN ×3 (04:09→19:06)
[2020-02-28] MEDS: VANCOMYCIN HCL 500 MG in DEXTROSE 5%-WATER 100 ML IV SCH (07:07)
[2020-02-28 08:00] VITALS: BP 109/76
[2020-02-28] MEDS: THIAMINE 100 MG TABLET PO SCH (09:00)
[2020-02-28] MEDS: MULTIVITAMINS WITH MINERALS, THERAPEUTIC TABLET PO SCH (09:00)
[2020-02-28 10:08] LABS: BASOPHILS % (AUTO) 0.6 % (0.0-2.0); EOSINOPHILS % (AUTO) 0.6 % (1.0-6.0); HEMATOCRIT 23.4 % (41-53); HEMOGLOBIN 7.8 g/dL (13.5-17.5); LYMPHOCYTES # (AUTO) 2.3 K/uL (1.0-4.8); LYMPHOCYTES % (AUTO) 15.5 % (22.0-44.0); MEAN CORPUSCULAR HEMOGLOBIN 29.7 pg (26.0-34.0); MEAN CORPUSCULAR HGB CONC 33.5 G/dL (31.0-37.0); MEAN CORPUSCULAR VOLUME 89 fL (80-100); MONOCYTES # (AUTO) 0.8 K/uL (0.1-1.0); MONOCYTES % (AUTO) 5.7 % (2.0-9.0); NEUTROPHILS # (AUTO) 11.5 K/uL (1.8-7.7); NEUTROPHILS % (AUTO) 77.6 % (40.0-70.0); PLATELET COUNT (AUTO) 141 K/uL (150-450); RED BLOOD CELL COUNT(AUTO) 2.64 MIL/uL (4.50-5.90); RED CELL DISTRIBUTION WIDTH 17.2 % (11.5-14.5)
[2020-02-28 10:21] LABS: ALANINE AMINOTRANSFERASE 8 U/L (12-78); ALBUMIN 1.4 g/dL (3.4-5.0); ALKALINE PHOSPHATASE 103 U/L (46-116); ANION GAP 10 mmol/L (8-16); ASPARTATE AMINOTRANSFERASE 32 U/L (15-37); BILIRUBIN,TOTAL 0.5 mg/dL (0.1-1.0); C-REACTIVE PROTEIN QUANT 5.25 mg/dL (0.00-0.30); CALCIUM, TOTAL 7.5 mg/dL (8.8-10.5); CARBON DIOXIDE 21 mmol/L (22-29); CHLORIDE 115 mmol/L (98-107); CREATININE 0.54 mg/dL (0.60-1.30); GLOMERULAR FILTR. RATE CALC > 60 mL/min (>60); GLUCOSE,RANDOM 124 mg/dL (70-110); PHOSPHORUS 2.9 mg/dL (2.5-4.9); POTASSIUM 3.9 mmol/L (3.5-5.1); SODIUM SERUM 146 mmol/L (136-145); TOTAL PROTEIN, SERUM 4.7 g/dL (6.4-8.2); UREA NITROGEN, BLOOD 9 mg/dL (7-18)
[2020-02-28 12:00] VITALS: BP 120/77
[2020-02-28] MEDS: MAGNESIUM SULFATE 2 GM/WATER 50 ML IV PRN (13:22)
[2020-02-28 18:02] VITALS: BP 113/84
[2020-02-28] MEDS ORDERED: SODIUM CHLORIDE 0.9% 250 ML IV ONE (18:35)
[2020-02-28] MEDS: FLUCONAZOLE 400 MG/NACL ISOOSM 200 ML IV SCH (19:04)
[2020-02-28] MEDS: INSULIN LISPRO 100 UNITS/ML SQ PRN (19:11)
[2020-02-28] MEDS: OXYGEN THERAPY IH SCH ×3 (20:00→22:00)
[2020-02-28 20:05] VITALS: BP 118/91
[2020-02-28 20:17] LABS: GLUCOMETER DEV NAME(LOC) 5N.1; GLUCOSE,POINT OF CARE 129 MG/DL (70-110)
[2020-02-28] MEDS: LEVOFLOXACIN 750 MG/D5% WATER 150 ML IV SCH (21:08)
[2020-02-29 00:04] VITALS: BP 124/95
[2020-02-29] MEDS: AMPICILLIN SODIUM 2 GM/NS 100 ML IV SCH ×4 (00:20→17:10)
[2020-02-29] MEDS: MORPHINE SULFATE 2 MG/ML SYRINGE IVP PRN ×3 (02:13→20:09)
[2020-02-29 03:32] LABS: GLUCOMETER DEV NAME(LOC) 5N.1; GLUCOSE,POINT OF CARE 140 MG/DL (70-110)
[2020-02-29 04:12] VITALS: BP 124/86
[2020-02-29 06:25] LABS: GLUCOSE,POINT OF CARE 149 MG/DL (70-110)
[2020-02-29 06:25] LABS: GLUCOSE,POINT OF CARE 94 MG/DL (70-110)
[2020-02-29 06:26] LABS: GLUCOSE,POINT OF CARE 90 MG/DL (70-110)
[2020-02-29] MEDS: VANCOMYCIN HCL 500 MG in DEXTROSE 5%-WATER 100 ML IV SCH (06:34)
[2020-02-29 06:50] LABS: GLUCOMETER DEV NAME(LOC) 5N.1; GLUCOSE,POINT OF CARE 147 MG/DL (70-110)
[2020-02-29 07:03] LABS: GLUCOMETER DEV NAME(LOC) 4E.2; GLUCOSE,POINT OF CARE 111 MG/DL (70-110)
[2020-02-29 07:04] LABS: GLUCOMETER DEV NAME(LOC) 4E.2; GLUCOSE,POINT OF CARE 92 MG/DL (70-110)
[2020-02-29 07:21] VITALS: BP 124/83
[2020-02-29] MEDS: THIAMINE 100 MG TABLET PO SCH (09:00)
[2020-02-29] MEDS: MULTIVITAMINS WITH MINERALS, THERAPEUTIC TABLET PO SCH (09:00)
[2020-02-29 10:02] LABS: ALANINE AMINOTRANSFERASE 7 U/L (12-78); ALBUMIN 1.2 g/dL (3.4-5.0); ALKALINE PHOSPHATASE 91 U/L (46-116); ANION GAP 17 mmol/L (8-16); ASPARTATE AMINOTRANSFERASE 27 U/L (15-37); BILIRUBIN,TOTAL 0.4 mg/dL (0.1-1.0); C-REACTIVE PROTEIN QUANT 5.05 mg/dL (0.00-0.30); CALCIUM, TOTAL 7.3 mg/dL (8.8-10.5); CARBON DIOXIDE 16 mmol/L (22-29); CHLORIDE 113 mmol/L (98-107); CREATININE 0.45 mg/dL (0.60-1.30); GLOMERULAR FILTR. RATE CALC > 60 mL/min (>60); GLUCOSE,RANDOM 161 mg/dL (70-110); SODIUM SERUM 146 mmol/L (136-145); TOTAL PROTEIN, SERUM 4.4 g/dL (6.4-8.2); UREA NITROGEN, BLOOD 9 mg/dL (7-18); VANCOMYCIN,RANDOM 19.2 mcg/mL (25.0-50.0)
[2020-02-29] MEDS: OXYGEN THERAPY IH SCH ×2 (10:23→20:13)
[2020-02-29 11:52] VITALS: BP 133/102
[2020-02-29 12:52] LABS: BASOPHILS % (AUTO) 1.3 % (0.0-2.0); EOSINOPHILS % (AUTO) 0.6 % (1.0-6.0); HEMATOCRIT 23.8 % (41-53); LYMPHOCYTES # (AUTO) 2.2 K/uL (1.0-4.8); LYMPHOCYTES % (AUTO) 18.2 % (22.0-44.0); MEAN CORPUSCULAR HEMOGLOBIN 30.2 pg (26.0-34.0); MEAN CORPUSCULAR HGB CONC 33.7 G/dL (31.0-37.0); MEAN CORPUSCULAR VOLUME 90 fL (80-100); MONOCYTES # (AUTO) 0.6 K/uL (0.1-1.0); MONOCYTES % (AUTO) 5.3 % (2.0-9.0); NEUTROPHILS # (AUTO) 8.8 K/uL (1.8-7.7); NEUTROPHILS % (AUTO) 74.6 % (40.0-70.0); PLATELET COUNT (AUTO) 102 K/uL (150-450); RED BLOOD CELL COUNT(AUTO) 2.66 MIL/uL (4.50-5.90); RED CELL DISTRIBUTION WIDTH 17.4 % (11.5-14.5)
[2020-02-29 13:40] LABS: GLUCOMETER DEV NAME(LOC) 5N.1; GLUCOSE,POINT OF CARE 149 MG/DL (70-110)
[2020-02-29 15:55] VITALS: BP 134/87
[2020-02-29] MEDS ORDERED: CASPOFUNGIN ACETATE 70 MG in SODIUM CHLORIDE 0.9% 250 ML IV ONE (16:00)
[2020-02-29 16:10] LABS: ABG METHEMOGLOBIN 0.3 % (0.0-1.5); SOURCE, BLOOD GAS ARTERIAL
[2020-02-29 16:13] LABS: ABG BASE EXCESS -10.8 mmol/L (-2.0-3.0); ABG CARBOXYHEMOGLOBIN 1.4 % (0.0-3.0); ABG HCO3 16.3 mmol/L (22.0-26.0); ABG OXYGEN CONTENT 10.1 mL/dL (15.0-23.0); ABG OXYGEN SATURATION 86.9 % (95.0-98.0); ABG OXYHEMOGLOBIN 85.4 % (94.0-100.0); ABG PCO2 33 mmHg (35-45); ABG TOTAL HEMOGLOBIN 8.4 G/dL (12.0-18.0)
[2020-02-29 16:15] LABS: ABG PH 7.295 (7.350-7.450); O2 DEVICE,BLOOD GAS CANNULA (ROOM AIR); PO2, ARTERIAL BG 52.9 mmHg (80.0-100.0); SITE, BLOOD GAS RT RADIAL
[2020-02-29] MEDS: MAGNESIUM SULFATE 2 GM/WATER 50 ML IV PRN (18:18)
[2020-02-29 20:05] VITALS: BP 145/75
[2020-02-29] MEDS: LEVOFLOXACIN 750 MG/D5% WATER 150 ML IV SCH (20:13)
[2020-02-29 21:07] LABS: GLUCOMETER DEV NAME(LOC) 5N.1; GLUCOSE,POINT OF CARE 173 MG/DL (70-110)
[2020-03-01 00:04] VITALS: BP 136/85
[2020-03-01] MEDS: AMPICILLIN SODIUM 2 GM/NS 100 ML IV SCH ×5 (00:23→23:22)
[2020-03-01] MEDS: LORazepam 2 MG/ML VIAL IVP PRN ×2 (00:23→20:17)
[2020-03-01 03:37] LABS: GLUCOMETER DEV NAME(LOC) 5S.2A; GLUCOSE,POINT OF CARE 187 MG/DL (70-110)
[2020-03-01 06:07] VITALS: BP 124/84
[2020-03-01 07:58] LABS: ALBUMIN 1.5 g/dL (3.4-5.0); ANION GAP 15 mmol/L (8-16); CALCIUM, TOTAL 7.8 mg/dL (8.8-10.5); CARBON DIOXIDE 18 mmol/L (22-29); CHLORIDE 111 mmol/L (98-107); CREATININE 0.54 mg/dL (0.60-1.30); GLOMERULAR FILTR. RATE CALC > 60 mL/min (>60); GLUCOSE,RANDOM 205 mg/dL (70-110); POTASSIUM 3.5 mmol/L (3.5-5.1); SODIUM SERUM 144 mmol/L (136-145); UREA NITROGEN, BLOOD 9 mg/dL (7-18); VANCOMYCIN,RANDOM 11.5 mcg/mL (25.0-50.0)
[2020-03-01 08:00] VITALS: BP 126/84
[2020-03-01] MEDS: MULTIVITAMINS WITH MINERALS, THERAPEUTIC TABLET PO SCH (08:31)
[2020-03-01] MEDS: THIAMINE 100 MG TABLET PO SCH (08:31)
[2020-03-01] MEDS: VANCOMYCIN HCL 500 MG in DEXTROSE 5%-WATER 100 ML IV SCH (08:42)
[2020-03-01] MEDS: OXYGEN THERAPY IH SCH (09:06)
[2020-03-01] MEDS: MORPHINE SULFATE 2 MG/ML SYRINGE IVP PRN (09:45)
[2020-03-01 12:08] LABS: GLUCOMETER DEV NAME(LOC) 5S.2A; GLUCOSE,POINT OF CARE 189 MG/DL (70-110)
[2020-03-01] MEDS ORDERED: SODIUM CHLORIDE 0.9% 250 ML IV ONE (12:23)
[2020-03-01] MEDS: MAGNESIUM SULFATE 2 GM/WATER 50 ML IV PRN (12:28)
[2020-03-01 12:30] VITALS: BP 137/97
[2020-03-01 14:06] LABS: ABG A-A DIFF O2 57.8 mmHg (10-20.0); ABG BASE EXCESS -10.5 mmol/L (-2.0-3.0); ABG CARBOXYHEMOGLOBIN 0.9 % (0.0-3.0); ABG HCO3 16.6 mmol/L (22.0-26.0); ABG METHEMOGLOBIN 0.3 % (0.0-1.5); ABG OXYGEN CONTENT 10.1 mL/dL (15.0-23.0); ABG OXYGEN SATURATION 88.9 % (95.0-98.0); ABG OXYHEMOGLOBIN 87.8 % (94.0-100.0); ABG PCO2 30 mmHg (35-45); ABG TOTAL HEMOGLOBIN 8.1 G/dL (12.0-18.0); PO2, ARTERIAL BG 56.1 mmHg (80.0-100.0); SOURCE, BLOOD GAS ARTERIAL; TEMPERATURE, FAHRENHEIT, BG 98.6 FAHREN (96.0-98.6)
[2020-03-01 14:07] LABS: SITE, BLOOD GAS RT RADIAL
[2020-03-01] MEDS: CASPOFUNGIN ACETATE 50 MG in SODIUM CHLORIDE 0.9% 250 ML IV SCH (16:23)
[2020-03-01] MEDS: POTASSIUM CHL 10 MEQ/WATER 50 ML IV PRN ×3 (16:24→20:16)
[2020-03-01] MEDS: INSULIN LISPRO 100 UNITS/ML SQ PRN ×2 (17:30→23:39)
[2020-03-01 18:11] LABS: GLUCOMETER DEV NAME(LOC) 5S.1; GLUCOSE,POINT OF CARE 252 MG/DL (70-110)
[2020-03-01 19:30] VITALS: BP 126/97
[2020-03-01] MEDS: LEVOFLOXACIN 750 MG/D5% WATER 150 ML IV SCH (20:16)
[2020-03-02] MEDS: MORPHINE SULFATE 2 MG/ML SYRINGE IVP PRN ×3 (03:51→20:24)
[2020-03-02 04:33] VITALS: BP 132/91
[2020-03-02 05:30] LABS: GLUCOMETER DEV NAME(LOC) 5S.2A; GLUCOSE,POINT OF CARE 221 MG/DL (70-110)
[2020-03-02 05:30] LABS: GLUCOMETER DEV NAME(LOC) 5S.2A; GLUCOSE,POINT OF CARE 202 MG/DL (70-110)
[2020-03-02] MEDS: AMPICILLIN SODIUM 2 GM/NS 100 ML IV SCH ×4 (05:35→23:15)
[2020-03-02] MEDS: INSULIN LISPRO 100 UNITS/ML SQ PRN ×3 (05:43→23:27)
[2020-03-02 06:21] LABS: GLUCOMETER DEV NAME(LOC) 5N.1; GLUCOSE,POINT OF CARE 182 MG/DL (70-110)
[2020-03-02 07:24] LABS: EOSINOPHILS % (AUTO) 0.8 % (1.0-6.0); HEMATOCRIT 21.2 % (41-53); HEMOGLOBIN 7.2 g/dL (13.5-17.5); LYMPHOCYTES # (AUTO) 1.8 K/uL (1.0-4.8); LYMPHOCYTES % (AUTO) 18.3 % (22.0-44.0); MEAN CORPUSCULAR HEMOGLOBIN 30.2 pg (26.0-34.0); MEAN CORPUSCULAR HGB CONC 33.8 G/dL (31.0-37.0); MEAN CORPUSCULAR VOLUME 89 fL (80-100); MONOCYTES # (AUTO) 0.6 K/uL (0.1-1.0); MONOCYTES % (AUTO) 6.3 % (2.0-9.0); NEUTROPHILS # (AUTO) 7.1 K/uL (1.8-7.7); NEUTROPHILS % (AUTO) 73.6 % (40.0-70.0); PLATELET COUNT (AUTO) 160 K/uL (150-450); RED BLOOD CELL COUNT(AUTO) 2.38 MIL/uL (4.50-5.90); RED CELL DISTRIBUTION WIDTH 16.9 % (11.5-14.5)
[2020-03-02 07:29] LABS: ANION GAP 7 mmol/L (8-16); C-REACTIVE PROTEIN QUANT 4.43 mg/dL (0.00-0.30); CALCIUM, TOTAL 7.7 mg/dL (8.8-10.5); CARBON DIOXIDE 24 mmol/L (22-29); CHLORIDE 113 mmol/L (98-107); CREATININE 0.64 mg/dL (0.60-1.30); GLOMERULAR FILTR. RATE CALC > 60 mL/min (>60); GLUCOSE,RANDOM 196 mg/dL (70-110); POTASSIUM 3.3 mmol/L (3.5-5.1); SODIUM SERUM 144 mmol/L (136-145); UREA NITROGEN, BLOOD 8 mg/dL (7-18)
[2020-03-02 07:39] VITALS: BP 135/97
[2020-03-02] MEDS: THIAMINE 100 MG TABLET PO SCH (07:59)
[2020-03-02] MEDS: VANCOMYCIN HCL 500 MG in DEXTROSE 5%-WATER 100 ML IV SCH (07:59)
[2020-03-02] MEDS: MULTIVITAMINS WITH MINERALS, THERAPEUTIC TABLET PO SCH (07:59)
[2020-03-02] MEDS: POTASSIUM CHLORIDE 20 MEQ ER TABLET PO PRN (08:00)
[2020-03-02] MEDS: POTASSIUM CHL 10 MEQ/WATER 50 ML IV PRN ×3 (10:30→15:12)
[2020-03-02 10:45] VITALS: BP 143/98
[2020-03-02] MEDS: LORazepam 2 MG/ML VIAL IVP PRN ×2 (15:35→23:16)
[2020-03-02] MEDS: CASPOFUNGIN ACETATE 50 MG in SODIUM CHLORIDE 0.9% 250 ML IV SCH (15:39)
[2020-03-02 15:56] VITALS: BP 127/79
[2020-03-02] MEDS ORDERED: SODIUM CHLORIDE 0.9% 500 ML IV ONE (16:07)
[2020-03-02] MEDS ORDERED: SODIUM CL IRRIG SOLN BOTTLE 250 ML IRRIG ONE (16:07)
[2020-03-02 17:18] LABS: GLUCOMETER DEV NAME(LOC) 5S.2A; GLUCOSE,POINT OF CARE 77 MG/DL (70-110)
[2020-03-02 20:18] LABS: GLUCOMETER DEV NAME(LOC) 5S.2A; GLUCOSE,POINT OF CARE 288 MG/DL (70-110)
[2020-03-02] MEDS: LEVOFLOXACIN 750 MG/D5% WATER 150 ML IV SCH (20:24)
[2020-03-02 20:50] VITALS: BP 126/74
[2020-03-02 23:47] LABS: GLUCOMETER DEV NAME(LOC) 5S.2A; GLUCOSE,POINT OF CARE 165 MG/DL (70-110)
[2020-03-03] VITALS (7 sets, daily range): BP systolic 110–138; BP diastolic 70–97
[2020-03-03] MEDS: MORPHINE SULFATE 2 MG/ML SYRINGE IVP PRN ×2 (04:18→14:29)
[2020-03-03] MEDS: AMPICILLIN SODIUM 2 GM/NS 100 ML IV SCH ×3 (05:51→17:22)
[2020-03-03] MEDS: DEXTROSE 50%-WATER 25 GM/50 ML SYRINGE IVP PRN (06:11)
[2020-03-03 06:43] LABS: GLUCOMETER DEV NAME(LOC) 5N.1; GLUCOSE,POINT OF CARE 51 MG/DL (70-110)
[2020-03-03 06:43] LABS: GLUCOMETER DEV NAME(LOC) 5N.1; GLUCOSE,POINT OF CARE 30 MG/DL (70-110)
[2020-03-03 07:53] LABS: ALANINE AMINOTRANSFERASE 12 U/L (12-78); ALBUMIN 1.6 g/dL (3.4-5.0); ALKALINE PHOSPHATASE 112 U/L (46-116); ANION GAP 7 mmol/L (8-16); ASPARTATE AMINOTRANSFERASE 22 U/L (15-37); BILIRUBIN,TOTAL 0.3 mg/dL (0.1-1.0); CALCIUM, TOTAL 7.7 mg/dL (8.8-10.5); CARBON DIOXIDE 25 mmol/L (22-29); CHLORIDE 115 mmol/L (98-107); CREATININE 0.68 mg/dL (0.60-1.30); GLOMERULAR FILTR. RATE CALC > 60 mL/min (>60); GLUCOSE,RANDOM 118 mg/dL (70-110); POTASSIUM 3.6 mmol/L (3.5-5.1); SODIUM SERUM 147 mmol/L (136-145); TOTAL PROTEIN, SERUM 5.4 g/dL (6.4-8.2); UREA NITROGEN, BLOOD 8 mg/dL (7-18)
[2020-03-03] MEDS: MULTIVITAMINS WITH MINERALS, THERAPEUTIC TABLET PO SCH (07:53)
[2020-03-03] MEDS: THIAMINE 100 MG TABLET PO SCH (07:53)
[2020-03-03] MEDS: VANCOMYCIN HCL 750 MG in DEXTROSE 5%-WATER 250 ML IV SCH (07:53)
[2020-03-03] MEDS: INSULIN LISPRO 100 UNITS/ML SQ PRN ×2 (11:11→20:34)
[2020-03-03] MEDS: CASPOFUNGIN ACETATE 50 MG in SODIUM CHLORIDE 0.9% 250 ML IV SCH (15:15)
[2020-03-03 17:09] LABS: GLUCOMETER DEV NAME(LOC) 5N.1; GLUCOSE,POINT OF CARE 192 MG/DL (70-110)
[2020-03-03 20:13] LABS: GLUCOMETER DEV NAME(LOC) 5N.1; GLUCOSE,POINT OF CARE 243 MG/DL (70-110)
[2020-03-03 20:13] LABS: GLUCOMETER DEV NAME(LOC) 5N.1; GLUCOSE,POINT OF CARE 141 MG/DL (70-110)
[2020-03-03] MEDS: LEVOFLOXACIN 750 MG/D5% WATER 150 ML IV SCH (20:32)
[2020-03-03 20:33] LABS: GLUCOMETER DEV NAME(LOC) 5S.2A; GLUCOSE,POINT OF CARE 111 MG/DL (70-110)
[2020-03-04 00:34] LABS: GLUCOMETER DEV NAME(LOC) 5N.1; GLUCOSE,POINT OF CARE 137 MG/DL (70-110)
[2020-03-04] MEDS: AMPICILLIN SODIUM 2 GM/NS 100 ML IV SCH ×4 (00:37→18:02)
[2020-03-04 04:29] VITALS: BP 128/92
[2020-03-04] MEDS: MORPHINE SULFATE 2 MG/ML SYRINGE IVP PRN ×3 (04:44→20:46)
[2020-03-04] MEDS: INSULIN LISPRO 100 UNITS/ML SQ PRN ×2 (06:28→12:16)
[2020-03-04 06:50] LABS: GLUCOMETER DEV NAME(LOC) 5N.1; GLUCOSE,POINT OF CARE 242 MG/DL (70-110)
[2020-03-04 07:47] VITALS: BP 130/90
[2020-03-04] MEDS: VANCOMYCIN HCL 750 MG in DEXTROSE 5%-WATER 250 ML IV SCH (08:58)
[2020-03-04] MEDS: THIAMINE 100 MG TABLET PO SCH (08:58)
[2020-03-04] MEDS: MULTIVITAMINS WITH MINERALS, THERAPEUTIC TABLET PO SCH (08:58)
[2020-03-04 10:37] LABS: MEAN CORPUSCULAR VOLUME 90 fL (80-100)
[2020-03-04 10:41] LABS: BASOPHILS % (AUTO) 1.5 % (0.0-2.0); EOSINOPHILS % (AUTO) 3.5 % (1.0-6.0); HEMOGLOBIN 7.3 g/dL (13.5-17.5); LYMPHOCYTES # (AUTO) 2.8 K/uL (1.0-4.8); LYMPHOCYTES % (AUTO) 30.9 % (22.0-44.0); MEAN CORPUSCULAR HEMOGLOBIN 29.9 pg (26.0-34.0); MEAN CORPUSCULAR HGB CONC 33.4 G/dL (31.0-37.0); MONOCYTES # (AUTO) 0.8 K/uL (0.1-1.0); MONOCYTES % (AUTO) 8.7 % (2.0-9.0); NEUTROPHILS # (AUTO) 4.9 K/uL (1.8-7.7); NEUTROPHILS % (AUTO) 55.4 % (40.0-70.0); PLATELET COUNT (AUTO) 167 K/uL (150-450); RED BLOOD CELL COUNT(AUTO) 2.45 MIL/uL (4.50-5.90); RED CELL DISTRIBUTION WIDTH 17.3 % (11.5-14.5)
[2020-03-04 11:06] LABS: ALANINE AMINOTRANSFERASE 11 U/L (12-78); ALBUMIN 1.6 g/dL (3.4-5.0); ALKALINE PHOSPHATASE 114 U/L (46-116); ANION GAP 6 mmol/L (8-16); ASPARTATE AMINOTRANSFERASE 21 U/L (15-37); BILIRUBIN,TOTAL 0.3 mg/dL (0.1-1.0); C-REACTIVE PROTEIN QUANT 3.33 mg/dL (0.00-0.30); CALCIUM, TOTAL 7.7 mg/dL (8.8-10.5); CARBON DIOXIDE 27 mmol/L (22-29); CHLORIDE 112 mmol/L (98-107); GLOMERULAR FILTR. RATE CALC > 60 mL/min (>60); GLUCOSE,RANDOM 199 mg/dL (70-110); POTASSIUM 3.8 mmol/L (3.5-5.1); SODIUM SERUM 145 mmol/L (136-145); TOTAL PROTEIN, SERUM 5.7 g/dL (6.4-8.2); UREA NITROGEN, BLOOD 8 mg/dL (7-18)
[2020-03-04] MEDS: LORazepam 2 MG/ML VIAL IVP PRN ×2 (16:19→22:28)
[2020-03-04] MEDS: CASPOFUNGIN ACETATE 50 MG in SODIUM CHLORIDE 0.9% 250 ML IV SCH (16:19)
[2020-03-04 17:03] LABS: GLUCOMETER DEV NAME(LOC) 5N.1; GLUCOSE,POINT OF CARE 169 MG/DL (70-110)
[2020-03-04] MEDS: LEVOFLOXACIN 750 MG/D5% WATER 150 ML IV SCH (20:13)
[2020-03-04 20:14] VITALS: BP 120/82
[2020-03-04] MEDS: VORICONAZOLE 200 MG TABLET PO SCH (20:46)
[2020-03-04 23:15] VITALS: BP 91/55
[2020-03-05 00:52] LABS: GLUCOMETER DEV NAME(LOC) 5N.1; GLUCOSE,POINT OF CARE 112 MG/DL (70-110)
[2020-03-05] MEDS: AMPICILLIN SODIUM 2 GM/NS 100 ML IV SCH ×4 (00:55→18:54)
[2020-03-05] MEDS: MORPHINE SULFATE 2 MG/ML SYRINGE IVP PRN ×2 (02:22→20:21)
[2020-03-05] MEDS: LORazepam 2 MG/ML VIAL IVP PRN ×2 (04:19→20:21)
[2020-03-05] MEDS: VANCOMYCIN HCL 750 MG in DEXTROSE 5%-WATER 250 ML IV SCH (05:20)
[2020-03-05 05:29] LABS: GLUCOMETER DEV NAME(LOC) 5N.1; GLUCOSE,POINT OF CARE 132 MG/DL (70-110)
[2020-03-05 05:52] VITALS: BP 118/63
[2020-03-05 07:57] LABS: ALANINE AMINOTRANSFERASE 10 U/L (12-78); ALBUMIN 1.5 g/dL (3.4-5.0); ALKALINE PHOSPHATASE 103 U/L (46-116); ANION GAP 4 mmol/L (8-16); ASPARTATE AMINOTRANSFERASE 21 U/L (15-37); BILIRUBIN,TOTAL 0.2 mg/dL (0.1-1.0); C-REACTIVE PROTEIN QUANT 3.25 mg/dL (0.00-0.30); CALCIUM, TOTAL 7.8 mg/dL (8.8-10.5); CARBON DIOXIDE 26 mmol/L (22-29); CHLORIDE 115 mmol/L (98-107); CREATININE 0.78 mg/dL (0.60-1.30); GLOMERULAR FILTR. RATE CALC > 60 mL/min (>60); GLUCOSE,RANDOM 132 mg/dL (70-110); POTASSIUM 4.5 mmol/L (3.5-5.1); SODIUM SERUM 145 mmol/L (136-145); TOTAL PROTEIN, SERUM 5.4 g/dL (6.4-8.2); UREA NITROGEN, BLOOD 15 mg/dL (7-18); VANCOMYCIN,RANDOM 12.2 mcg/mL (25.0-50.0)
[2020-03-05] MEDS: THIAMINE 100 MG TABLET PO SCH (08:50)
[2020-03-05] MEDS: VORICONAZOLE 200 MG TABLET PO SCH ×2 (08:50→20:21)
[2020-03-05] MEDS: MULTIVITAMINS WITH MINERALS, THERAPEUTIC TABLET PO SCH (08:50)
[2020-03-05 09:40] VITALS: BP 93/69
[2020-03-05 17:12] VITALS: BP 100/62
[2020-03-05] MEDS: POVIDONE-IODINE 10% 120 ML SOLUTION TP SCH (17:43)
[2020-03-05] MEDS: CASPOFUNGIN ACETATE 50 MG in SODIUM CHLORIDE 0.9% 250 ML IV SCH (17:45)
[2020-03-05] MEDS: INSULIN LISPRO 100 UNITS/ML SQ PRN (17:51)
[2020-03-05] MEDS: LEVOFLOXACIN 750 MG/D5% WATER 150 ML IV SCH (20:22)
[2020-03-05 20:37] VITALS: BP 99/72
[2020-03-06] VITALS (7 sets, daily range): BP systolic 96–113; BP diastolic 5–74
[2020-03-06] MEDS: AMPICILLIN SODIUM 2 GM/NS 100 ML IV SCH ×5 (00:03→23:50)
[2020-03-06 04:03] LABS: GLUCOMETER DEV NAME(LOC) 5N.1; GLUCOSE,POINT OF CARE 156 MG/DL (70-110)
[2020-03-06 04:03] LABS: GLUCOMETER DEV NAME(LOC) 5N.1; GLUCOSE,POINT OF CARE 220 MG/DL (70-110)
[2020-03-06] MEDS: MORPHINE SULFATE 2 MG/ML SYRINGE IVP PRN ×2 (04:26→19:06)
[2020-03-06 07:03] LABS: BASOPHILS % (AUTO) 0.5 % (0.0-2.0); EOSINOPHILS % (AUTO) 0.3 % (1.0-6.0); MEAN CORPUSCULAR HGB CONC 32.8 G/dL (31.0-37.0); MEAN CORPUSCULAR VOLUME 92 fL (80-100); MONOCYTES # (AUTO) 0.7 K/uL (0.1-1.0); MONOCYTES % (AUTO) 6.2 % (2.0-9.0); PLATELET COUNT (AUTO) 159 K/uL (150-450); RED BLOOD CELL COUNT(AUTO) 2.11 MIL/uL (4.50-5.90); RED CELL DISTRIBUTION WIDTH 18.1 % (11.5-14.5)
[2020-03-06 07:24] LABS: ALANINE AMINOTRANSFERASE 12 U/L (12-78); ALBUMIN 1.5 g/dL (3.4-5.0); ALKALINE PHOSPHATASE 104 U/L (46-116); ANION GAP 8 mmol/L (8-16); ASPARTATE AMINOTRANSFERASE 26 U/L (15-37); BILIRUBIN,TOTAL 0.2 mg/dL (0.1-1.0); C-REACTIVE PROTEIN QUANT 5.89 mg/dL (0.00-0.30); CALCIUM, TOTAL 7.8 mg/dL (8.8-10.5); CARBON DIOXIDE 22 mmol/L (22-29); CHLORIDE 116 mmol/L (98-107); CREATININE 0.87 mg/dL (0.60-1.30); GLOMERULAR FILTR. RATE CALC > 60 mL/min (>60); GLUCOSE,RANDOM 113 mg/dL (70-110); POTASSIUM 4.9 mmol/L (3.5-5.1); SODIUM SERUM 146 mmol/L (136-145); TOTAL PROTEIN, SERUM 5.4 g/dL (6.4-8.2); UREA NITROGEN, BLOOD 21 mg/dL (7-18)
[2020-03-06 07:35] LABS: GLUCOMETER DEV NAME(LOC) 5N.1; GLUCOSE,POINT OF CARE 76 MG/DL (70-110)
[2020-03-06] MEDS ORDERED: VANCOMYCIN HCL 1 GM/D5% WATER 200 ML IV SCH (08:00)
[2020-03-06 08:02] LABS: HEMOGLOBIN 6.3 g/dL (13.5-17.5)
[2020-03-06 08:03] LABS: HEMATOCRIT 19.3 % (41-53)
[2020-03-06] MEDS: MULTIVITAMINS WITH MINERALS, THERAPEUTIC TABLET PO SCH (09:37)
[2020-03-06] MEDS: THIAMINE 100 MG TABLET PO SCH (09:43)
[2020-03-06] MEDS: VORICONAZOLE 200 MG TABLET PO SCH ×2 (10:35→21:17)
[2020-03-06] MEDS: POVIDONE-IODINE 10% 120 ML SOLUTION TP SCH (10:36)
[2020-03-06] MEDS: DEXTROSE 50%-WATER 25 GM/50 ML SYRINGE IVP PRN ×2 (12:44→23:02)
[2020-03-06 15:27] LABS: GLUCOMETER DEV NAME(LOC) 5S.1; GLUCOSE,POINT OF CARE 64 MG/DL (70-110)
[2020-03-06] MEDS: CASPOFUNGIN ACETATE 50 MG in SODIUM CHLORIDE 0.9% 250 ML IV SCH (18:15)
[2020-03-06] MEDS: LEVOFLOXACIN 750 MG/D5% WATER 150 ML IV SCH (21:17)
[2020-03-06] MEDS ORDERED: SODIUM CHLORIDE 0.9% 250 ML IV ONE (23:35)
[2020-03-07] VITALS: BP 74/49
[2020-03-07] MEDS ORDERED: SODIUM CHLORIDE 0.9% 250 ML IV ONE (00:20)
[2020-03-07 02:10] VITALS: BP 112/80
[2020-03-07] MEDS: MORPHINE SULFATE 2 MG/ML SYRINGE IVP PRN ×3 (02:15→16:29)
[2020-03-07 04:00] VITALS: BP 111/77
[2020-03-07] MEDS: AMPICILLIN SODIUM 2 GM/NS 100 ML IV SCH ×4 (05:14→23:31)
[2020-03-07 06:59] LABS: BASOPHILS % (AUTO) 0.1 % (0.0-2.0); EOSINOPHILS % (AUTO) 0.1 % (1.0-6.0); HEMATOCRIT 21.9 % (41-53); HEMOGLOBIN 7.2 g/dL (13.5-17.5); LYMPHOCYTES # (AUTO) 1.3 K/uL (1.0-4.8); LYMPHOCYTES % (AUTO) 11.4 % (22.0-44.0); MEAN CORPUSCULAR HEMOGLOBIN 29.9 pg (26.0-34.0); MEAN CORPUSCULAR HGB CONC 32.9 G/dL (31.0-37.0); MEAN CORPUSCULAR VOLUME 91 fL (80-100); MONOCYTES # (AUTO) 0.6 K/uL (0.1-1.0); MONOCYTES % (AUTO) 5.9 % (2.0-9.0); NEUTROPHILS # (AUTO) 9.1 K/uL (1.8-7.7); NEUTROPHILS % (AUTO) 82.5 % (40.0-70.0); PLATELET COUNT (AUTO) 163 K/uL (150-450); RED BLOOD CELL COUNT(AUTO) 2.42 MIL/uL (4.50-5.90); RED CELL DISTRIBUTION WIDTH 16.4 % (11.5-14.5)
[2020-03-07 07:15] LABS: GLUCOMETER DEV NAME(LOC) 5S.1; GLUCOSE,POINT OF CARE 83 MG/DL (70-110)
[2020-03-07 07:16] LABS: GLUCOMETER DEV NAME(LOC) 5S.1; GLUCOSE,POINT OF CARE 55 MG/DL (70-110)
[2020-03-07 07:16] LABS: ALANINE AMINOTRANSFERASE 13 U/L (12-78); ALKALINE PHOSPHATASE 91 U/L (46-116); ANION GAP 7 mmol/L (8-16); ASPARTATE AMINOTRANSFERASE 28 U/L (15-37); BILIRUBIN,TOTAL 0.4 mg/dL (0.1-1.0); C-REACTIVE PROTEIN QUANT 6.56 mg/dL (0.00-0.30); CALCIUM, TOTAL 7.7 mg/dL (8.8-10.5); CARBON DIOXIDE 24 mmol/L (22-29); CHLORIDE 117 mmol/L (98-107); CREATININE 0.91 mg/dL (0.60-1.30); GLOMERULAR FILTR. RATE CALC > 60 mL/min (>60); GLUCOSE,RANDOM 78 mg/dL (70-110); POTASSIUM 4.8 mmol/L (3.5-5.1); SODIUM SERUM 148 mmol/L (136-145); TOTAL PROTEIN, SERUM 5.5 g/dL (6.4-8.2); UREA NITROGEN, BLOOD 22 mg/dL (7-18)
[2020-03-07 07:16] LABS: GLUCOMETER DEV NAME(LOC) 5S.1; GLUCOSE,POINT OF CARE 133 MG/DL (70-110)
[2020-03-07 07:18] LABS: GLUCOMETER DEV NAME(LOC) 4E.2; GLUCOSE,POINT OF CARE 81 MG/DL (70-110)
[2020-03-07 08:00] VITALS: BP 126/90
[2020-03-07] MEDS: MULTIVITAMINS WITH MINERALS, THERAPEUTIC TABLET PO SCH (09:52)
[2020-03-07] MEDS: VORICONAZOLE 200 MG TABLET PO SCH ×2 (09:52→21:06)
[2020-03-07] MEDS: THIAMINE 100 MG TABLET PO SCH (09:52)
[2020-03-07] MEDS: POVIDONE-IODINE 10% 120 ML SOLUTION TP SCH (09:52)
[2020-03-07 12:00] VITALS: BP 120/90
[2020-03-07] MEDS: CASPOFUNGIN ACETATE 50 MG in SODIUM CHLORIDE 0.9% 250 ML IV SCH (15:09)
[2020-03-07 16:00] VITALS: BP 112/83
[2020-03-07] MEDS: INSULIN LISPRO 100 UNITS/ML SQ PRN (18:18)
[2020-03-07] MEDS: LEVOFLOXACIN 750 MG/D5% WATER 150 ML IV SCH (19:24)
[2020-03-07] MEDS ORDERED: SODIUM CHLORIDE 0.9% 100 ML ONE (19:24)
[2020-03-07] MEDS ORDERED: IOVERSOL 320 MG/ML 100 ML VIAL ONE (19:24)
[2020-03-07] MEDS: LORazepam 2 MG/ML VIAL IVP PRN (19:54)
[2020-03-07] MEDS: ONDANSETRON HCL 4 MG/2 ML VIAL IVP PRN (21:06)
[2020-03-07] MEDS: FAMOTIDINE 20 MG TABLET PO SCH (21:06)
[2020-03-08] VITALS: BP 113/84
[2020-03-08] MEDS: INSULIN LISPRO 100 UNITS/ML SQ PRN ×2 (00:10→00:13)
[2020-03-08] MEDS: DEXTROSE 50%-WATER 25 GM/50 ML SYRINGE IVP PRN ×3 (05:11→17:08)
[2020-03-08] MEDS: AMPICILLIN SODIUM 2 GM/NS 100 ML IV SCH ×3 (05:12→18:00)
[2020-03-08] MEDS: ONDANSETRON HCL 4 MG/2 ML VIAL IVP PRN ×2 (05:40→22:06)
[2020-03-08 06:22] LABS: BASOPHILS % (AUTO) 0.3 % (0.0-2.0); EOSINOPHILS % (AUTO) 0.1 % (1.0-6.0); HEMOGLOBIN 7.4 g/dL (13.5-17.5); LYMPHOCYTES # (AUTO) 2.2 K/uL (1.0-4.8); LYMPHOCYTES % (AUTO) 18.3 % (22.0-44.0); MEAN CORPUSCULAR HEMOGLOBIN 29.5 pg (26.0-34.0); MEAN CORPUSCULAR HGB CONC 32.3 G/dL (31.0-37.0); MEAN CORPUSCULAR VOLUME 91 fL (80-100); MONOCYTES # (AUTO) 0.6 K/uL (0.1-1.0); MONOCYTES % (AUTO) 5.1 % (2.0-9.0); NEUTROPHILS # (AUTO) 9.3 K/uL (1.8-7.7); NEUTROPHILS % (AUTO) 76.2 % (40.0-70.0); PLATELET COUNT (AUTO) 244 K/uL (150-450); RED BLOOD CELL COUNT(AUTO) 2.52 MIL/uL (4.50-5.90); RED CELL DISTRIBUTION WIDTH 17.3 % (11.5-14.5)
[2020-03-08 06:51] LABS: ALANINE AMINOTRANSFERASE 13 U/L (12-78); ALBUMIN 1.8 g/dL (3.4-5.0); ALKALINE PHOSPHATASE 101 U/L (46-116); ANION GAP 9 mmol/L (8-16); ASPARTATE AMINOTRANSFERASE 25 U/L (15-37); BILIRUBIN,TOTAL 0.2 mg/dL (0.1-1.0); C-REACTIVE PROTEIN QUANT 9.79 mg/dL (0.00-0.30); CALCIUM, TOTAL 7.8 mg/dL (8.8-10.5); CARBON DIOXIDE 23 mmol/L (22-29); CHLORIDE 118 mmol/L (98-107); CREATININE 1.01 mg/dL (0.60-1.30); GLOMERULAR FILTR. RATE CALC > 60 mL/min (>60); POTASSIUM 4.3 mmol/L (3.5-5.1); SODIUM SERUM 150 mmol/L (136-145); TOTAL PROTEIN, SERUM 5.7 g/dL (6.4-8.2)
[2020-03-08 07:01] LABS: UREA NITROGEN, BLOOD 21 mg/dL (7-18)
[2020-03-08 07:10] LABS: GLUCOSE,POINT OF CARE 116 MG/DL (70-110)
[2020-03-08 07:22] LABS: GLUCOSE,RANDOM 29 mg/dL (70-110)
[2020-03-08 08:22] LABS: ABG TOTAL HEMOGLOBIN 8.1 G/dL (12.0-18.0); SOURCE, BLOOD GAS ARTERIAL; TEMPERATURE, FAHRENHEIT, BG 96.3 FAHREN (96.0-98.6)
[2020-03-08 08:26] LABS: ABG A-A DIFF O2 572.5 mmHg (10-20.0); ABG BASE EXCESS -6.7 mmol/L (-2.0-3.0); ABG CARBOXYHEMOGLOBIN 0.3 % (0.0-3.0); ABG HCO3 19.1 mmol/L (22.0-26.0); ABG METHEMOGLOBIN 0.5 % (0.0-1.5); ABG OXYGEN CONTENT 11.1 mL/dL (15.0-23.0); ABG OXYGEN SATURATION 96.5 % (95.0-98.0); ABG OXYHEMOGLOBIN 95.7 % (94.0-100.0); ABG PCO2 49 mmHg (35-45); PO2, ARTERIAL BG 94.4 mmHg (80.0-100.0)
[2020-03-08 08:37] LABS: GLUCOMETER DEV NAME(LOC) 4E.2; GLUCOSE,POINT OF CARE 200 MG/DL (70-110)
[2020-03-08 08:37] LABS: GLUCOMETER DEV NAME(LOC) 4E.2; GLUCOSE,POINT OF CARE 107 MG/DL (70-110)
[2020-03-08 08:38] LABS: GLUCOMETER DEV NAME(LOC) 4E.2; GLUCOSE,POINT OF CARE 21 MG/DL (70-110)
[2020-03-08 08:38] LABS: GLUCOMETER DEV NAME(LOC) 4E.2; GLUCOSE,POINT OF CARE 125 MG/DL (70-110)
[2020-03-08 08:39] LABS: SITE, BLOOD GAS LFT RADIAL
[2020-03-08 08:40] LABS: O2 DEVICE,BLOOD GAS BIPAP (ROOM AIR)
[2020-03-08] MEDS: POVIDONE-IODINE 10% 120 ML SOLUTION TP SCH (09:00)
[2020-03-08] MEDS: THIAMINE 100 MG TABLET PO SCH (09:00)
[2020-03-08] MEDS: MULTIVITAMINS WITH MINERALS, THERAPEUTIC TABLET PO SCH (09:00)
[2020-03-08] MEDS: FAMOTIDINE 20 MG TABLET PO SCH ×2 (09:00→21:23)
[2020-03-08] MEDS: VORICONAZOLE 200 MG TABLET PO SCH (09:00)
[2020-03-08] MEDS: DEXTROSE 5%-WATER 1,000 ML IV SCH (10:22)
[2020-03-08 11:44] LABS: ABG BASE EXCESS -5.7 mmol/L (-2.0-3.0); ABG CARBOXYHEMOGLOBIN 0.7 % (0.0-3.0); ABG HCO3 19.7 mmol/L (22.0-26.0); ABG METHEMOGLOBIN 0.3 % (0.0-1.5); ABG OXYGEN CONTENT 10.8 mL/dL (15.0-23.0); ABG OXYGEN SATURATION 93.7 % (95.0-98.0); ABG OXYHEMOGLOBIN 92.8 % (94.0-100.0); ABG PCO2 57 mmHg (35-45); ABG TOTAL HEMOGLOBIN 8.2 G/dL (12.0-18.0); PO2, ARTERIAL BG 78.5 mmHg (80.0-100.0); SOURCE, BLOOD GAS ARTERIAL
[2020-03-08 13:57] LABS: ABG PH 7.206 (7.350-7.450); SITE, BLOOD GAS LFT RADIAL
[2020-03-08 13:58] LABS: O2 DEVICE,BLOOD GAS BIPAP (ROOM AIR)
[2020-03-08 16:00] VITALS: BP 111/78
[2020-03-08] MEDS: CASPOFUNGIN ACETATE 50 MG in SODIUM CHLORIDE 0.9% 250 ML IV SCH (16:56)
[2020-03-08 17:10] LABS: INR 1.7 (0.9-1.1); PROTHROMBIN TIME 16.9 SEC (9.4-11.6)
[2020-03-08 18:04] LABS: GLUCOSE,POINT OF CARE 60 MG/DL (70-110)
[2020-03-08 18:36] LABS: GLUCOSE,POINT OF CARE 117 MG/DL (70-110)
[2020-03-08 20:00] VITALS: BP 104/77
[2020-03-08] MEDS: LEVOFLOXACIN 750 MG/D5% WATER 150 ML IV SCH (21:23)
[2020-03-08] MEDS: MORPHINE SULFATE 2 MG/ML SYRINGE IVP PRN (22:06)
[2020-03-09] VITALS: BP 96/76
[2020-03-09] MEDS: DEXTROSE 5%-WATER 1,000 ML IV SCH (02:27)
[2020-03-09 02:39] LABS: APPEARANCE,URINE CLOUDY (CLEAR); BILIRUBIN,URINE NEGATIVE (NEGATIVE); GLUCOSE, URINE (UA) NEGATIVE (NEGATIVE); KETONES,URINE NEGATIVE (NEGATIVE); LEUKOCYTE ESTERASE ,URINE NEGATIVE (NEGATIVE); NITRATE,URINE NEGATIVE (NEGATIVE); OCCULT BLOOD,URINE TRACE (NEGATIVE); PROTEIN,URINE POS 1+ (NEGATIVE); UROBILINOGEN,URINE 0.2 mg/dL (<=1.0)
[2020-03-09 02:50] LABS: BACTERIA,URINE Rare /HPF (None Seen); RBC,URINE 0-2 /HPF (0-2); SQUAMOUS EPITHELIAL CELL,UR Few /LPF (None Seen); WBC,URINE 0-2 /HPF (0-5); YEAST,URINE None Seen /HPF (None Seen)
[2020-03-09] MEDS ORDERED: PROPOFOL 1000 MG/ISO-OSM 100 ML IV ONE (03:33)
[2020-03-09 03:47] LABS: HEMATOCRIT 24.2 % (41-53); HEMOGLOBIN 7.6 g/dL (13.5-17.5); MEAN CORPUSCULAR HEMOGLOBIN 29.9 pg (26.0-34.0); MEAN CORPUSCULAR HGB CONC 31.4 G/dL (31.0-37.0); MEAN CORPUSCULAR VOLUME 95 fL (80-100); PLATELET COUNT (AUTO) 197 K/uL (150-450); RED BLOOD CELL COUNT(AUTO) 2.53 MIL/uL (4.50-5.90); RED CELL DISTRIBUTION WIDTH 18.7 % (11.5-14.5)
[2020-03-09 03:51] LABS: SOURCE, BLOOD GAS ARTERIAL; TEMPERATURE, FAHRENHEIT, BG 98.6 FAHREN (96.0-98.6)
[2020-03-09 03:53] LABS: ANION GAP 10 mmol/L (8-16); CALCIUM, TOTAL 7.4 mg/dL (8.8-10.5); CARBON DIOXIDE 24 mmol/L (22-29); CHLORIDE 118 mmol/L (98-107); GLOMERULAR FILTR. RATE CALC > 60 mL/min (>60); GLUCOSE,RANDOM 221 mg/dL (70-110); POTASSIUM 3.9 mmol/L (3.5-5.1); SODIUM SERUM 152 mmol/L (136-145); UREA NITROGEN, BLOOD 21 mg/dL (7-18)
[2020-03-09 03:54] LABS: ABG TOTAL HEMOGLOBIN 8.1 G/dL (12.0-18.0)
[2020-03-09 03:56] LABS: ALANINE AMINOTRANSFERASE 18 U/L (12-78); ALBUMIN 1.3 g/dL (3.4-5.0); ALKALINE PHOSPHATASE 132 U/L (46-116); ASPARTATE AMINOTRANSFERASE 86 U/L (15-37); BILIRUBIN,TOTAL 0.4 mg/dL (0.1-1.0); C-REACTIVE PROTEIN QUANT 9.47 mg/dL (0.00-0.30); PHOSPHORUS 5.8 mg/dL (2.5-4.9); TOTAL PROTEIN, SERUM 4.5 g/dL (6.4-8.2)
[2020-03-09 03:57] LABS: ABG A-A DIFF O2 556.1 mmHg (10-20.0); ABG BASE EXCESS -11.6 mmol/L (-2.0-3.0); ABG CARBOXYHEMOGLOBIN 0.2 % (0.0-3.0); ABG METHEMOGLOBIN 0.5 % (0.0-1.5); ABG OXYGEN CONTENT 9.6 mL/dL (15.0-23.0); ABG OXYHEMOGLOBIN 83.4 % (94.0-100.0); PO2, ARTERIAL BG 70.2 mmHg (80.0-100.0)
[2020-03-09 03:59] LABS: ABG PCO2 87 mmHg (35-45)
[2020-03-09 04:00] VITALS: BP 122/78
[2020-03-09 04:00] LABS: INR 2.3 (0.9-1.1); PROTHROMBIN TIME 23.4 SEC (9.4-11.6)
[2020-03-09 04:00] LABS: O2 DEVICE,BLOOD GAS VENTILATOR (ROOM AIR); PEEP,BG 5 cm H2O; SITE, BLOOD GAS LFT RADIAL; VT, ABG 450 ml
[2020-03-09] MEDS ORDERED: MAGNESIUM SULFATE 1 GM in DEXTROSE 5%-WATER 50 ML IV ONE (04:45)
[2020-03-09] MEDS ORDERED: DEXTROSE 5%-LACTATED RINGERS 1,000 ML IV SCH (04:45)
[2020-03-09] MEDS ORDERED: SODIUM BICARBONATE [ADULT] 8.4% 50 MEQ/50 ML SYRINGE IVP ONE (04:45)
[2020-03-09 04:57] LABS: BAND NEUTROPHILS % (MANUAL) 5 % (0-5); LYMPHOCYTES % (MANUAL) 44 % (22-44); METAMYELOCYTES % 2 % (0-0); MONOCYTES % (MANUAL) 5 % (2-9); MYELOCYTES % 1 % (0-0); SEGMENTED NEUTROPHILS % 43 % (40-70)
[2020-03-09] MEDS ORDERED: NOREPINEPHRINE 4 MG/D5%-WATER 250 ML IV PRN (05:09)
[2020-03-09 06:01] LABS: GLUCOMETER DEV NAME(LOC) 4E.2; GLUCOSE,POINT OF CARE 20 MG/DL (70-110)
[2020-03-09 06:01] LABS: GLUCOMETER DEV NAME(LOC) 4E.2; GLUCOSE,POINT OF CARE 117 MG/DL (70-110)
[2020-03-09 06:01] LABS: GLUCOMETER DEV NAME(LOC) 4E.2; GLUCOSE,POINT OF CARE 100 MG/DL (70-110)
[2020-03-09] MEDS ORDERED: SODIUM CHLORIDE 0.9% 500 ML IV ONE (06:45)
[2020-03-09 07:07] LABS: GLUCOMETER DEV NAME(LOC) 4E.2; GLUCOSE,POINT OF CARE 169 MG/DL (70-110)
[2020-03-09 08:00] VITALS: BP 109/76
[2020-03-09] MEDS: NOREPINEPHRINE 4 MG/D5%-WATER 250 ML IV PRN (08:00)
[2020-03-09] MEDS: THIAMINE 100 MG TABLET PO SCH (09:00)
[2020-03-09] MEDS: FAMOTIDINE 20 MG TABLET PO SCH ×2 (09:00→20:51)
[2020-03-09] MEDS: MULTIVITAMINS WITH MINERALS, THERAPEUTIC TABLET PO SCH (09:00)
[2020-03-09 09:07] LABS: ABG CARBOXYHEMOGLOBIN 0.4 % (0.0-3.0); SOURCE, BLOOD GAS ARTERIAL
[2020-03-09 09:11] LABS: ABG A-A DIFF O2 630.8 mmHg (10-20.0); ABG BASE EXCESS -7.7 mmol/L (-2.0-3.0); ABG HCO3 18.2 mmol/L (22.0-26.0); ABG METHEMOGLOBIN 0.2 % (0.0-1.5); ABG OXYGEN CONTENT 11.5 mL/dL (15.0-23.0); ABG OXYGEN SATURATION 92.3 % (95.0-98.0); ABG OXYHEMOGLOBIN 91.7 % (94.0-100.0); ABG PCO2 44 mmHg (35-45); ABG TOTAL HEMOGLOBIN 8.8 G/dL (12.0-18.0)
[2020-03-09 09:17] LABS: ABG PH 7.258 (7.350-7.450); O2 DEVICE,BLOOD GAS VENTILATOR (ROOM AIR); PEEP,BG 8 cm H2O; PO2, ARTERIAL BG 51.1 mmHg (80.0-100.0); SITE, BLOOD GAS ARTERIAL LINE; VT, ABG 450 ml
[2020-03-09] MEDS: POVIDONE-IODINE 10% 120 ML SOLUTION TP SCH (09:45)
[2020-03-09] MEDS ORDERED: HEPARIN SODIUM 25000 UNITS/D5W 250 ML IV PRN (10:25)
[2020-03-09 10:29] LABS: TEMPERATURE, FAHRENHEIT, BG 88.6 FAHREN (96.0-98.6)
[2020-03-09] MEDS ORDERED: HEPARIN SODIUM,PORCINE 5,000 UNITS/ML VIAL IVP PRN ×2 (10:30)
[2020-03-09] MEDS: WATER FOR INJECTION,STERILE 500 ML in DEXTROSE 5%-WATER 500 ML IV SCH (11:23)
[2020-03-09] MEDS: INSULIN LISPRO 100 UNITS/ML SQ PRN ×2 (11:49→18:13)
[2020-03-09 12:00] VITALS: BP 121/74
[2020-03-09] MEDS ORDERED: SODIUM CHLORIDE 0.9% 250 ML IV ONE (12:01)
[2020-03-09 12:19] LABS: ALANINE AMINOTRANSFERASE 22 U/L (12-78); ALBUMIN 1.4 g/dL (3.4-5.0); ALKALINE PHOSPHATASE 109 U/L (46-116); ANION GAP 11 mmol/L (8-16); ASPARTATE AMINOTRANSFERASE 117 U/L (15-37); BILIRUBIN,TOTAL 0.5 mg/dL (0.1-1.0); CALCIUM, TOTAL 7.6 mg/dL (8.8-10.5); CARBON DIOXIDE 23 mmol/L (22-29); CHLORIDE 118 mmol/L (98-107); CREATININE 0.94 mg/dL (0.60-1.30); GLOMERULAR FILTR. RATE CALC > 60 mL/min (>60); GLUCOSE,RANDOM 223 mg/dL (70-110); PHOSPHORUS 3.9 mg/dL (2.5-4.9); POTASSIUM 3.5 mmol/L (3.5-5.1); SODIUM SERUM 152 mmol/L (136-145); TOTAL PROTEIN, SERUM 4.8 g/dL (6.4-8.2); UREA NITROGEN, BLOOD 20 mg/dL (7-18)
[2020-03-09] MEDS: AMPICILLIN SODIUM 2 GM/NS 100 ML IV SCH ×2 (12:49→18:12)
[2020-03-09] MEDS ORDERED: VANCOMYCIN HCL 1 GM/D5% WATER 200 ML IV ONE (13:00)
[2020-03-09] MEDS: MetroNIDAZOLE 500 MG/NACL 100 ML IV SCH ×2 (13:24→20:52)
[2020-03-09] MEDS: PROPOFOL 1000 MG/ISO-OSM 100 ML IV PRN (15:30)
[2020-03-09 15:59] LABS: ABG A-A DIFF O2 615.2 mmHg (10-20.0); ABG BASE EXCESS -4.4 mmol/L (-2.0-3.0); ABG METHEMOGLOBIN 0.3 % (0.0-1.5); ABG OXYGEN CONTENT 10.5 mL/dL (15.0-23.0); ABG OXYGEN SATURATION 96.7 % (95.0-98.0); ABG OXYHEMOGLOBIN 96.4 % (94.0-100.0); ABG PCO2 35 mmHg (35-45); ABG PH 7.387 (7.350-7.450); ABG TOTAL HEMOGLOBIN 7.6 G/dL (12.0-18.0); PO2, ARTERIAL BG 74.8 mmHg (80.0-100.0); SITE, BLOOD GAS ARTERIAL LINE; SOURCE, BLOOD GAS ARTERIAL
[2020-03-09 16:00] VITALS: BP 132/89
[2020-03-09 16:00] LABS: O2 DEVICE,BLOOD GAS VENTILATOR (ROOM AIR); PEEP,BG 10 cm H2O; VT, ABG 450 ml
[2020-03-09] MEDS: CASPOFUNGIN ACETATE 50 MG in SODIUM CHLORIDE 0.9% 250 ML IV SCH (16:19)
[2020-03-09 20:00] VITALS: BP 106/66
[2020-03-09] MEDS: LEVOFLOXACIN 750 MG/D5% WATER 150 ML IV SCH (20:09)
[2020-03-09 20:13] LABS: ALANINE AMINOTRANSFERASE 20 U/L (12-78); ALBUMIN 1.3 g/dL (3.4-5.0); ALKALINE PHOSPHATASE 94 U/L (46-116); ANION GAP 0 mmol/L (8-16); ASPARTATE AMINOTRANSFERASE 83 U/L (15-37); BILIRUBIN,TOTAL 0.4 mg/dL (0.1-1.0); CALCIUM, TOTAL 7.4 mg/dL (8.8-10.5); CARBON DIOXIDE 24 mmol/L (22-29); CHLORIDE 111 mmol/L (98-107); CREATININE 0.75 mg/dL (0.60-1.30); GLOMERULAR FILTR. RATE CALC > 60 mL/min (>60); GLUCOSE,RANDOM 146 mg/dL (70-110); PHOSPHORUS 3.4 mg/dL (2.5-4.9); SODIUM SERUM 135 mmol/L (136-145); TOTAL PROTEIN, SERUM 4.9 g/dL (6.4-8.2); UREA NITROGEN, BLOOD 18 mg/dL (7-18)
[2020-03-09 21:09] LABS: POTASSIUM 2.8 mmol/L (3.5-5.1)
[2020-03-09 21:44] LABS: GLUCOSE,POINT OF CARE 205 MG/DL (70-110)
[2020-03-09 21:45] LABS: GLUCOSE,POINT OF CARE 166 MG/DL (70-110)
[2020-03-09 21:50] LABS: SOURCE, BLOOD GAS ARTERIAL; TEMPERATURE, FAHRENHEIT, BG 98.6 FAHREN (96.0-98.6)
[2020-03-09] MEDS: POTASSIUM CHL 10 MEQ/WATER 50 ML IV PRN ×4 (21:53→23:57)
[2020-03-09 21:55] LABS: ABG A-A DIFF O2 509.5 mmHg (10-20.0); ABG CARBOXYHEMOGLOBIN 0.2 % (0.0-3.0); ABG HCO3 21.4 mmol/L (22.0-26.0); ABG METHEMOGLOBIN 0.4 % (0.0-1.5); ABG OXYGEN CONTENT 10.6 mL/dL (15.0-23.0); ABG OXYGEN SATURATION 98.7 % (95.0-98.0); ABG OXYHEMOGLOBIN 98.1 % (94.0-100.0); ABG PCO2 38 mmHg (35-45); ABG PH 7.365 (7.350-7.450); PO2, ARTERIAL BG 165.2 mmHg (80.0-100.0)
[2020-03-09 22:01] LABS: ABG TOTAL HEMOGLOBIN 7.4 G/dL (12.0-18.0); O2 DEVICE,BLOOD GAS VENTILATOR (ROOM AIR); PEEP,BG 10 cm H2O; SITE, BLOOD GAS ARTERIAL LINE; SPONTANEOUS VT, BG 461 ml; VT, ABG 450 ml
[2020-03-10] VITALS (13 sets, daily range): BP systolic 84–127; BP diastolic 50–75
[2020-03-10] MEDS: NOREPINEPHRINE 4 MG/D5%-WATER 250 ML IV PRN (00:33)
[2020-03-10] MEDS: WATER FOR INJECTION,STERILE 500 ML in DEXTROSE 5%-WATER 500 ML IV SCH ×3 (00:39→20:08)
[2020-03-10] MEDS: AMPICILLIN SODIUM 2 GM/NS 100 ML IV SCH ×5 (00:50→23:51)
[2020-03-10 01:00] LABS: GLUCOSE,POINT OF CARE 95 MG/DL (70-110)
[2020-03-10 03:25] LABS: ALANINE AMINOTRANSFERASE 19 U/L (12-78); ALBUMIN 1.4 g/dL (3.4-5.0); ALKALINE PHOSPHATASE 98 U/L (46-116); ANION GAP 9 mmol/L (8-16); ASPARTATE AMINOTRANSFERASE 74 U/L (15-37); BILIRUBIN,TOTAL 0.3 mg/dL (0.1-1.0); CALCIUM, TOTAL 7.4 mg/dL (8.8-10.5); CARBON DIOXIDE 24 mmol/L (22-29); CHLORIDE 117 mmol/L (98-107); CREATININE 0.82 mg/dL (0.60-1.30); GLOMERULAR FILTR. RATE CALC > 60 mL/min (>60); GLUCOSE,RANDOM 85 mg/dL (70-110); PHOSPHORUS 3.1 mg/dL (2.5-4.9); POTASSIUM 3.6 mmol/L (3.5-5.1); SODIUM SERUM 150 mmol/L (136-145); TOTAL PROTEIN, SERUM 4.9 g/dL (6.4-8.2); UREA NITROGEN, BLOOD 17 mg/dL (7-18)
[2020-03-10 04:29] LABS: SOURCE, BLOOD GAS ARTERIAL; TEMPERATURE, FAHRENHEIT, BG 98.6 FAHREN (96.0-98.6)
[2020-03-10 04:32] LABS: ABG A-A DIFF O2 358.9 mmHg (10-20.0); ABG BASE EXCESS -2.9 mmol/L (-2.0-3.0); ABG CARBOXYHEMOGLOBIN 0.2 % (0.0-3.0); ABG HCO3 22.2 mmol/L (22.0-26.0); ABG METHEMOGLOBIN 0.3 % (0.0-1.5); ABG OXYGEN CONTENT 9.7 mL/dL (15.0-23.0); ABG OXYGEN SATURATION 97.2 % (95.0-98.0); ABG OXYHEMOGLOBIN 96.7 % (94.0-100.0); ABG PCO2 35 mmHg (35-45); ABG PH 7.411 (7.350-7.450); PO2, ARTERIAL BG 102.7 mmHg (80.0-100.0)
[2020-03-10 04:34] LABS: O2 DEVICE,BLOOD GAS VENTILATOR (ROOM AIR); SITE, BLOOD GAS ARTERIAL LINE
[2020-03-10 04:35] LABS: PEEP,BG 10 cm H2O; SPONTANEOUS VT, BG 449 ml; VT, ABG 450 ml
[2020-03-10] MEDS: MetroNIDAZOLE 500 MG/NACL 100 ML IV SCH ×3 (05:18→20:08)
[2020-03-10] MEDS: DEXTROSE 50%-WATER 25 GM/50 ML SYRINGE IVP PRN ×3 (05:32→18:29)
[2020-03-10] MEDS: MAGNESIUM SULFATE 2 GM/WATER 50 ML IV PRN ×2 (05:37→14:11)
[2020-03-10] MEDS: PROPOFOL 1000 MG/ISO-OSM 100 ML IV PRN ×2 (06:05→18:24)
[2020-03-10 06:10] LABS: ALANINE AMINOTRANSFERASE 17 U/L (12-78); ALBUMIN 1.3 g/dL (3.4-5.0); ALKALINE PHOSPHATASE 97 U/L (46-116); ANION GAP 12 mmol/L (8-16); ASPARTATE AMINOTRANSFERASE 66 U/L (15-37); BILIRUBIN,TOTAL 0.3 mg/dL (0.1-1.0); C-REACTIVE PROTEIN QUANT 12.87 mg/dL (0.00-0.30); CALCIUM, TOTAL 7.4 mg/dL (8.8-10.5); CARBON DIOXIDE 23 mmol/L (22-29); CHLORIDE 116 mmol/L (98-107); CREATININE 0.75 mg/dL (0.60-1.30); GLOMERULAR FILTR. RATE CALC > 60 mL/min (>60); GLUCOSE,RANDOM 60 mg/dL (70-110); PHOSPHORUS 3.1 mg/dL (2.5-4.9); POTASSIUM 3.4 mmol/L (3.5-5.1); SODIUM SERUM 151 mmol/L (136-145); TOTAL PROTEIN, SERUM 4.8 g/dL (6.4-8.2); UREA NITROGEN, BLOOD 18 mg/dL (7-18)
[2020-03-10 06:13] LABS: BASOPHILS % (AUTO) 0.1 % (0.0-2.0); EOSINOPHILS % (AUTO) 0.5 % (1.0-6.0); HEMATOCRIT 21.5 % (41-53); LYMPHOCYTES # (AUTO) 1.4 K/uL (1.0-4.8); LYMPHOCYTES % (AUTO) 21.1 % (22.0-44.0); MEAN CORPUSCULAR HEMOGLOBIN 29.4 pg (26.0-34.0); MEAN CORPUSCULAR HGB CONC 32.2 G/dL (31.0-37.0); MEAN CORPUSCULAR VOLUME 91 fL (80-100); MONOCYTES # (AUTO) 0.3 K/uL (0.1-1.0); MONOCYTES % (AUTO) 4.9 % (2.0-9.0); NEUTROPHILS # (AUTO) 4.9 K/uL (1.8-7.7); NEUTROPHILS % (AUTO) 73.4 % (40.0-70.0); PLATELET COUNT (AUTO) 157 K/uL (150-450); RED BLOOD CELL COUNT(AUTO) 2.35 MIL/uL (4.50-5.90); RED CELL DISTRIBUTION WIDTH 17.5 % (11.5-14.5)
[2020-03-10 06:18] LABS: HEMOGLOBIN 6.9 g/dL (13.5-17.5)
[2020-03-10 06:19] LABS: GLUCOSE,POINT OF CARE 123 MG/DL (70-110)
[2020-03-10 07:03] LABS: GLUCOMETER DEV NAME(LOC) 4E.2; GLUCOSE,POINT OF CARE 46 MG/DL (70-110)
[2020-03-10 07:04] LABS: GLUCOSE,POINT OF CARE 128 MG/DL (70-110)
[2020-03-10] MEDS: VANCOMYCIN HCL 1 GM/D5% WATER 200 ML IV SCH (08:15)
[2020-03-10 08:28] LABS: SOURCE, BLOOD GAS ARTERIAL; TEMPERATURE, FAHRENHEIT, BG 98.6 FAHREN (96.0-98.6)
[2020-03-10] MEDS: FAMOTIDINE 20 MG TABLET PO SCH ×2 (08:31→20:09)
[2020-03-10] MEDS: POVIDONE-IODINE 10% 120 ML SOLUTION TP SCH (08:31)
[2020-03-10] MEDS: MULTIVITAMINS WITH MINERALS, THERAPEUTIC TABLET PO SCH (08:31)
[2020-03-10] MEDS: THIAMINE 100 MG TABLET PO SCH (08:31)
[2020-03-10 08:32] LABS: ABG A-A DIFF O2 302.3 mmHg (10-20.0); ABG BASE EXCESS -2.2 mmol/L (-2.0-3.0); ABG CARBOXYHEMOGLOBIN 0.4 % (0.0-3.0); ABG HCO3 22.7 mmol/L (22.0-26.0); ABG METHEMOGLOBIN 0.4 % (0.0-1.5); ABG OXYGEN CONTENT 9.1 mL/dL (15.0-23.0); ABG OXYGEN SATURATION 94.9 % (95.0-98.0); ABG OXYHEMOGLOBIN 94.1 % (94.0-100.0); ABG PCO2 41 mmHg (35-45); ABG PH 7.366 (7.350-7.450); PO2, ARTERIAL BG 80.1 mmHg (80.0-100.0)
[2020-03-10 08:39] LABS: ABG TOTAL HEMOGLOBIN 6.8 G/dL (12.0-18.0); O2 DEVICE,BLOOD GAS VENTILATOR (ROOM AIR); SITE, BLOOD GAS ARTERIAL LINE
[2020-03-10 08:40] LABS: PEEP,BG 10 cm H2O; VT, ABG 450 ml
[2020-03-10 13:02] LABS: ALANINE AMINOTRANSFERASE 17 U/L (12-78); ALBUMIN 1.2 g/dL (3.4-5.0); ALKALINE PHOSPHATASE 88 U/L (46-116); ANION GAP 10 mmol/L (8-16); ASPARTATE AMINOTRANSFERASE 55 U/L (15-37); BILIRUBIN,TOTAL 0.3 mg/dL (0.1-1.0); CALCIUM, TOTAL 7.1 mg/dL (8.8-10.5); CARBON DIOXIDE 23 mmol/L (22-29); CHLORIDE 115 mmol/L (98-107); GLOMERULAR FILTR. RATE CALC > 60 mL/min (>60); GLUCOSE,RANDOM 127 mg/dL (70-110); POTASSIUM 3.4 mmol/L (3.5-5.1); SODIUM SERUM 148 mmol/L (136-145); TOTAL PROTEIN, SERUM 4.5 g/dL (6.4-8.2); UREA NITROGEN, BLOOD 17 mg/dL (7-18)
[2020-03-10] MEDS: CASPOFUNGIN ACETATE 50 MG in SODIUM CHLORIDE 0.9% 250 ML IV SCH (16:42)
[2020-03-10 17:17] LABS: GLUCOMETER DEV NAME(LOC) 4E.2; GLUCOSE,POINT OF CARE 48 MG/DL (70-110)
[2020-03-10 17:17] LABS: GLUCOMETER DEV NAME(LOC) 4E.2; GLUCOSE,POINT OF CARE 167 MG/DL (70-110)
[2020-03-10 17:17] LABS: GLUCOMETER DEV NAME(LOC) 4E.2; GLUCOSE,POINT OF CARE 93 MG/DL (70-110)
[2020-03-10 17:18] LABS: GLUCOMETER DEV NAME(LOC) 4E.2; GLUCOSE,POINT OF CARE 70 MG/DL (70-110)
[2020-03-10 17:43] LABS: ALANINE AMINOTRANSFERASE 17 U/L (12-78); ALBUMIN 1.3 g/dL (3.4-5.0); ALKALINE PHOSPHATASE 97 U/L (46-116); ANION GAP 7 mmol/L (8-16); ASPARTATE AMINOTRANSFERASE 49 U/L (15-37); BILIRUBIN,TOTAL 0.3 mg/dL (0.1-1.0); CALCIUM, TOTAL 7.2 mg/dL (8.8-10.5); CARBON DIOXIDE 25 mmol/L (22-29); CHLORIDE 114 mmol/L (98-107); CREATININE 0.79 mg/dL (0.60-1.30); GLOMERULAR FILTR. RATE CALC > 60 mL/min (>60); GLUCOSE,RANDOM 75 mg/dL (70-110); POTASSIUM 3.4 mmol/L (3.5-5.1); SODIUM SERUM 146 mmol/L (136-145); TOTAL PROTEIN, SERUM 4.8 g/dL (6.4-8.2); UREA NITROGEN, BLOOD 15 mg/dL (7-18)
[2020-03-10 18:11] LABS: BASOPHILS % (AUTO) 0.1 % (0.0-2.0); EOSINOPHILS % (AUTO) 1.2 % (1.0-6.0); HEMATOCRIT 24.5 % (41-53); HEMOGLOBIN 8.2 g/dL (13.5-17.5); LYMPHOCYTES # (AUTO) 1.3 K/uL (1.0-4.8); MEAN CORPUSCULAR HEMOGLOBIN 30.2 pg (26.0-34.0); MEAN CORPUSCULAR HGB CONC 33.3 G/dL (31.0-37.0); MEAN CORPUSCULAR VOLUME 91 fL (80-100); MONOCYTES # (AUTO) 0.3 K/uL (0.1-1.0); MONOCYTES % (AUTO) 2.9 % (2.0-9.0); NEUTROPHILS # (AUTO) 7.9 K/uL (1.8-7.7); NEUTROPHILS % (AUTO) 81.8 % (40.0-70.0); PLATELET COUNT (AUTO) 196 K/uL (150-450); RED BLOOD CELL COUNT(AUTO) 2.71 MIL/uL (4.50-5.90); RED CELL DISTRIBUTION WIDTH 16.3 % (11.5-14.5)
[2020-03-10 19:13] LABS: GLUCOSE,POINT OF CARE 145 MG/DL (70-110)
[2020-03-10 19:13] LABS: GLUCOSE,POINT OF CARE 55 MG/DL (70-110)
[2020-03-10 19:37] LABS: ABG A-A DIFF O2 302.7 mmHg (10-20.0); ABG BASE EXCESS -3.1 mmol/L (-2.0-3.0); ABG CARBOXYHEMOGLOBIN 0.3 % (0.0-3.0); ABG METHEMOGLOBIN 0.4 % (0.0-1.5); ABG OXYGEN CONTENT 11.5 mL/dL (15.0-23.0); ABG OXYHEMOGLOBIN 94.3 % (94.0-100.0); ABG PCO2 42 mmHg (35-45); ABG TOTAL HEMOGLOBIN 8.6 G/dL (12.0-18.0); PO2, ARTERIAL BG 79.2 mmHg (80.0-100.0); SOURCE, BLOOD GAS ARTERIAL; TEMPERATURE, FAHRENHEIT, BG 98.6 FAHREN (96.0-98.6)
[2020-03-10 19:38] LABS: O2 DEVICE,BLOOD GAS VENTILATOR (ROOM AIR); PEEP,BG 10 cm H2O; SITE, BLOOD GAS ARTERIAL LINE; SPONTANEOUS VT, BG 445 ml; VT, ABG 450 ml
[2020-03-10] MEDS: LEVOFLOXACIN 750 MG/D5% WATER 150 ML IV SCH (20:08)
[2020-03-11] VITALS: BP 102/63
[2020-03-11] MEDS: MetroNIDAZOLE 500 MG/NACL 100 ML IV SCH ×3 (03:44→20:32)
[2020-03-11] MEDS: PROPOFOL 1000 MG/ISO-OSM 100 ML IV PRN ×2 (03:44→22:59)
[2020-03-11] MEDS: WATER FOR INJECTION,STERILE 500 ML in DEXTROSE 5%-WATER 500 ML IV SCH ×2 (03:46→13:42)
[2020-03-11 04:00] VITALS: BP 105/56
[2020-03-11] MEDS: DEXTROSE 50%-WATER 25 GM/50 ML SYRINGE IVP PRN (04:55)
[2020-03-11] MEDS: AMPICILLIN SODIUM 2 GM/NS 100 ML IV SCH ×4 (05:28→23:04)
[2020-03-11 06:17] LABS: GLUCOSE,POINT OF CARE 87 MG/DL (70-110)
[2020-03-11 06:17] LABS: GLUCOSE,POINT OF CARE 69 MG/DL (70-110)
[2020-03-11 06:23] LABS: BASOPHILS % (AUTO) 0.2 % (0.0-2.0); EOSINOPHILS % (AUTO) 0.9 % (1.0-6.0); HEMATOCRIT 22.1 % (41-53); HEMOGLOBIN 7.6 g/dL (13.5-17.5); LYMPHOCYTES # (AUTO) 1.6 K/uL (1.0-4.8); LYMPHOCYTES % (AUTO) 18.8 % (22.0-44.0); MEAN CORPUSCULAR HEMOGLOBIN 30.9 pg (26.0-34.0); MEAN CORPUSCULAR HGB CONC 34.2 G/dL (31.0-37.0); MEAN CORPUSCULAR VOLUME 90 fL (80-100); MONOCYTES # (AUTO) 0.3 K/uL (0.1-1.0); MONOCYTES % (AUTO) 3.3 % (2.0-9.0); NEUTROPHILS # (AUTO) 6.4 K/uL (1.8-7.7); NEUTROPHILS % (AUTO) 76.8 % (40.0-70.0); PLATELET COUNT (AUTO) 143 K/uL (150-450); RED BLOOD CELL COUNT(AUTO) 2.45 MIL/uL (4.50-5.90); RED CELL DISTRIBUTION WIDTH 16.5 % (11.5-14.5)
[2020-03-11 06:52] LABS: ALANINE AMINOTRANSFERASE 12 U/L (12-78); ALBUMIN 1.2 g/dL (3.4-5.0); ALKALINE PHOSPHATASE 95 U/L (46-116); ANION GAP 8 mmol/L (8-16); ASPARTATE AMINOTRANSFERASE 38 U/L (15-37); BILIRUBIN,TOTAL 0.3 mg/dL (0.1-1.0); C-REACTIVE PROTEIN QUANT 11.83 mg/dL (0.00-0.30); CALCIUM, TOTAL 7.1 mg/dL (8.8-10.5); CARBON DIOXIDE 24 mmol/L (22-29); CHLORIDE 111 mmol/L (98-107); CREATININE 0.77 mg/dL (0.60-1.30); GLOMERULAR FILTR. RATE CALC > 60 mL/min (>60); GLUCOSE,RANDOM 78 mg/dL (70-110); POTASSIUM 3.3 mmol/L (3.5-5.1); SODIUM SERUM 143 mmol/L (136-145); TOTAL PROTEIN, SERUM 4.5 g/dL (6.4-8.2); UREA NITROGEN, BLOOD 14 mg/dL (7-18); VANCOMYCIN,RANDOM 19.4 mcg/mL (25.0-50.0)
[2020-03-11 08:00] VITALS: BP 114/72
[2020-03-11] MEDS: VANCOMYCIN HCL 1 GM/D5% WATER 200 ML IV SCH (08:00)
[2020-03-11 09:01] LABS: GLUCOSE,POINT OF CARE 108 MG/DL (70-110)
[2020-03-11] MEDS ORDERED: FUROSEMIDE 40 MG/4 ML VIAL IVP ONE (10:15)
[2020-03-11] MEDS: FAMOTIDINE 20 MG TABLET PO SCH ×2 (10:23→20:32)
[2020-03-11] MEDS: MULTIVITAMINS WITH MINERALS, THERAPEUTIC TABLET PO SCH (10:23)
[2020-03-11] MEDS: THIAMINE 100 MG TABLET PO SCH (10:23)
[2020-03-11] MEDS: POVIDONE-IODINE 10% 120 ML SOLUTION TP SCH (10:24)
[2020-03-11 12:00] VITALS: BP 110/61
[2020-03-11 12:51] LABS: ABG BASE EXCESS -3.7 mmol/L (-2.0-3.0); ABG CARBOXYHEMOGLOBIN 0.3 % (0.0-3.0); ABG HCO3 21.7 mmol/L (22.0-26.0); SOURCE, BLOOD GAS ARTERIAL; TEMPERATURE, FAHRENHEIT, BG 98.6 FAHREN (96.0-98.6)
[2020-03-11 12:55] LABS: ABG A-A DIFF O2 262.4 mmHg (10-20.0); ABG METHEMOGLOBIN 0.2 % (0.0-1.5); ABG OXYGEN CONTENT 13.4 mL/dL (15.0-23.0); ABG OXYGEN SATURATION 97.8 % (95.0-98.0); ABG OXYHEMOGLOBIN 97.3 % (94.0-100.0); ABG PCO2 38 mmHg (35-45); ABG PH 7.373 (7.350-7.450); ABG TOTAL HEMOGLOBIN 9.6 G/dL (12.0-18.0); PO2, ARTERIAL BG 123.7 mmHg (80.0-100.0)
[2020-03-11 13:03] LABS: O2 DEVICE,BLOOD GAS VENTILATOR (ROOM AIR); PEEP,BG 10 cm H2O; SITE, BLOOD GAS ARTERIAL LINE; VT, ABG 450 ml
[2020-03-11 13:24] LABS: GLUCOSE,POINT OF CARE 117 MG/DL (70-110)
[2020-03-11] MEDS ORDERED: IOVERSOL 350 MG/ML 100 ML VIAL ONE (13:27)
[2020-03-11] MEDS ORDERED: SODIUM CHLORIDE 0.9% 100 ML ONE (13:27)
[2020-03-11 15:15] LABS: GLUCOSE,POINT OF CARE 93 MG/DL (70-110)
[2020-03-11 16:00] VITALS: BP 112/64
[2020-03-11] MEDS: CASPOFUNGIN ACETATE 50 MG in SODIUM CHLORIDE 0.9% 250 ML IV SCH (17:48)
[2020-03-11 18:25] LABS: GLUCOSE,POINT OF CARE 124 MG/DL (70-110)
[2020-03-11] MEDS: POTASSIUM CHL 10 MEQ/WATER 50 ML IV PRN ×3 (20:31→22:10)
[2020-03-11] MEDS: LEVOFLOXACIN 750 MG/D5% WATER 150 ML IV SCH (20:32)
[2020-03-11] MEDS ORDERED: 0.9% SODIUM CHLORIDE 15 ML NEB SOLUTION NEB ONE (21:12)
[2020-03-12] VITALS: BP 92/41
[2020-03-12 01:28] LABS: GLUCOSE,POINT OF CARE 129 MG/DL (70-110)
[2020-03-12 04:00] VITALS: BP 127/65
[2020-03-12] MEDS: AMPICILLIN SODIUM 2 GM/NS 100 ML IV SCH ×3 (05:13→18:58)
[2020-03-12] MEDS: MetroNIDAZOLE 500 MG/NACL 100 ML IV SCH ×3 (05:13→19:47)
[2020-03-12 06:03] LABS: BASOPHILS % (AUTO) 0.4 % (0.0-2.0); EOSINOPHILS % (AUTO) 0.8 % (1.0-6.0); HEMATOCRIT 25.6 % (41-53); HEMOGLOBIN 8.7 g/dL (13.5-17.5); LYMPHOCYTES # (AUTO) 1.5 K/uL (1.0-4.8); LYMPHOCYTES % (AUTO) 13.4 % (22.0-44.0); MEAN CORPUSCULAR HEMOGLOBIN 30.4 pg (26.0-34.0); MEAN CORPUSCULAR HGB CONC 33.8 G/dL (31.0-37.0); MEAN CORPUSCULAR VOLUME 90 fL (80-100); MONOCYTES # (AUTO) 0.3 K/uL (0.1-1.0); MONOCYTES % (AUTO) 2.8 % (2.0-9.0); NEUTROPHILS # (AUTO) 9.2 K/uL (1.8-7.7); NEUTROPHILS % (AUTO) 82.6 % (40.0-70.0); PLATELET COUNT (AUTO) 167 K/uL (150-450); RED BLOOD CELL COUNT(AUTO) 2.85 MIL/uL (4.50-5.90); RED CELL DISTRIBUTION WIDTH 17.2 % (11.5-14.5)
[2020-03-12] MEDS: PROPOFOL 1000 MG/ISO-OSM 100 ML IV PRN ×3 (06:26→21:46)
[2020-03-12] MEDS: INSULIN LISPRO 100 UNITS/ML SQ PRN (06:27)
[2020-03-12 06:32] LABS: ALANINE AMINOTRANSFERASE 13 U/L (12-78); ALBUMIN 1.3 g/dL (3.4-5.0); ALKALINE PHOSPHATASE 131 U/L (46-116); ANION GAP 10 mmol/L (8-16); ASPARTATE AMINOTRANSFERASE 28 U/L (15-37); BILIRUBIN,TOTAL 0.4 mg/dL (0.1-1.0); C-REACTIVE PROTEIN QUANT 14.37 mg/dL (0.00-0.30); CALCIUM, TOTAL 7.7 mg/dL (8.8-10.5); CARBON DIOXIDE 25 mmol/L (22-29); CHLORIDE 112 mmol/L (98-107); GLOMERULAR FILTR. RATE CALC > 60 mL/min (>60); GLUCOSE,RANDOM 156 mg/dL (70-110); POTASSIUM 3.2 mmol/L (3.5-5.1); SODIUM SERUM 147 mmol/L (136-145); UREA NITROGEN, BLOOD 14 mg/dL (7-18)
[2020-03-12] MEDS ORDERED: SODIUM CHLORIDE 0.9% 250 ML IV ONE ×2 (06:37→09:53)
[2020-03-12 08:00] VITALS: BP 124/63
[2020-03-12 08:36] LABS: GLUCOMETER DEV NAME(LOC) 4E.2; GLUCOSE,POINT OF CARE 149 MG/DL (70-110)
[2020-03-12] MEDS: POVIDONE-IODINE 10% 120 ML SOLUTION TP SCH (08:45)
[2020-03-12] MEDS: VANCOMYCIN HCL 1 GM/D5% WATER 200 ML IV SCH (08:45)
[2020-03-12] MEDS: MULTIVITAMINS WITH MINERALS, THERAPEUTIC TABLET PO SCH (08:45)
[2020-03-12] MEDS: THIAMINE 100 MG TABLET PO SCH (08:45)
[2020-03-12] MEDS: FAMOTIDINE 20 MG TABLET PO SCH ×2 (08:45→21:46)
[2020-03-12] MEDS: POTASSIUM CHLORIDE 20 MEQ ER TABLET PO PRN (08:46)
[2020-03-12 12:00] VITALS: BP 120/63
[2020-03-12 13:09] LABS: GLUCOMETER DEV NAME(LOC) 4E.2; GLUCOSE,POINT OF CARE 101 MG/DL (70-110)
[2020-03-12] MEDS: WATER FOR INJECTION,STERILE 500 ML in DEXTROSE 5%-WATER 500 ML IV SCH (13:24)
[2020-03-12 14:10] LABS: ABG A-A DIFF O2 230.1 mmHg (10-20.0); ABG BASE EXCESS -3.9 mmol/L (-2.0-3.0); ABG CARBOXYHEMOGLOBIN 0.5 % (0.0-3.0); ABG HCO3 21.5 mmol/L (22.0-26.0); ABG METHEMOGLOBIN 0.3 % (0.0-1.5); ABG OXYGEN CONTENT 11.7 mL/dL (15.0-23.0); ABG OXYGEN SATURATION 97.1 % (95.0-98.0); ABG OXYHEMOGLOBIN 96.3 % (94.0-100.0); ABG PCO2 36 mmHg (35-45); ABG PH 7.391 (7.350-7.450); ABG TOTAL HEMOGLOBIN 8.5 G/dL (12.0-18.0); PO2, ARTERIAL BG 87.4 mmHg (80.0-100.0); TEMPERATURE, FAHRENHEIT, BG 97.2 FAHREN (96.0-98.6)
[2020-03-12 14:12] LABS: O2 DEVICE,BLOOD GAS VENTILATOR (ROOM AIR); PEEP,BG 8 cm H2O; SITE, BLOOD GAS LFT RADIAL; SOURCE, BLOOD GAS ART LINE; VT, ABG 450 ml
[2020-03-12 14:13] LABS: SPONTANEOUS VT, BG 449 ml
[2020-03-12] MEDS: CASPOFUNGIN ACETATE 50 MG in SODIUM CHLORIDE 0.9% 250 ML IV SCH (15:44)
[2020-03-12 16:00] VITALS: BP 120/66
[2020-03-12] MEDS ORDERED: EPINEPHrine 1:10,000 [1 MG/10 ML] SYRINGE ONE (16:21)
[2020-03-12] MEDS ORDERED: SODIUM BICARBONATE [ADULT] 8.4% 50 MEQ/50 ML SYRINGE IVP ONE (16:21)
[2020-03-12] MEDS ORDERED: 0.9% SODIUM CHLORIDE 10 ML SYRINGE IVP ONE (16:21)
[2020-03-12] MEDS ORDERED: DEXTROSE 50%-WATER 25 GM/50 ML SYRINGE IVP ONE (16:21)
[2020-03-12 19:32] LABS: GLUCOMETER DEV NAME(LOC) 4E.2; GLUCOSE,POINT OF CARE 76 MG/DL (70-110)
[2020-03-12] MEDS: LEVOFLOXACIN 750 MG/D5% WATER 150 ML IV SCH (19:47)
[2020-03-12 20:00] VITALS: BP 114/58
[2020-03-13] VITALS (7 sets, daily range): BP systolic 115–143; BP diastolic 59–80
[2020-03-13] MEDS: AMPICILLIN SODIUM 2 GM/NS 100 ML IV SCH ×5 (00:11→23:17)
[2020-03-13] MEDS: MetroNIDAZOLE 500 MG/NACL 100 ML IV SCH ×3 (05:18→19:51)
[2020-03-13 05:56] LABS: BASOPHILS % (AUTO) 0.4 % (0.0-2.0); EOSINOPHILS % (AUTO) 0.9 % (1.0-6.0); HEMATOCRIT 25.7 % (41-53); HEMOGLOBIN 8.9 g/dL (13.5-17.5); LYMPHOCYTES # (AUTO) 1.9 K/uL (1.0-4.8); LYMPHOCYTES % (AUTO) 18.5 % (22.0-44.0); MEAN CORPUSCULAR HEMOGLOBIN 30.9 pg (26.0-34.0); MEAN CORPUSCULAR HGB CONC 34.4 G/dL (31.0-37.0); MEAN CORPUSCULAR VOLUME 90 fL (80-100); MONOCYTES # (AUTO) 0.4 K/uL (0.1-1.0); NEUTROPHILS % (AUTO) 76.2 % (40.0-70.0); PLATELET COUNT (AUTO) 162 K/uL (150-450); RED BLOOD CELL COUNT(AUTO) 2.86 MIL/uL (4.50-5.90); RED CELL DISTRIBUTION WIDTH 16.9 % (11.5-14.5)
[2020-03-13] MEDS: PROPOFOL 1000 MG/ISO-OSM 100 ML IV PRN ×4 (06:03→23:42)
[2020-03-13 06:16] LABS: ALANINE AMINOTRANSFERASE 9 U/L (12-78); ALBUMIN 1.2 g/dL (3.4-5.0); ALKALINE PHOSPHATASE 125 U/L (46-116); ANION GAP 8 mmol/L (8-16); ASPARTATE AMINOTRANSFERASE 21 U/L (15-37); BILIRUBIN,TOTAL 0.4 mg/dL (0.1-1.0); C-REACTIVE PROTEIN QUANT 10.88 mg/dL (0.00-0.30); CALCIUM, TOTAL 7.7 mg/dL (8.8-10.5); CARBON DIOXIDE 25 mmol/L (22-29); CHLORIDE 113 mmol/L (98-107); CREATININE 0.82 mg/dL (0.60-1.30); GLOMERULAR FILTR. RATE CALC > 60 mL/min (>60); GLUCOSE,RANDOM 134 mg/dL (70-110); SODIUM SERUM 146 mmol/L (136-145); UREA NITROGEN, BLOOD 13 mg/dL (7-18)
[2020-03-13 06:36] LABS: POTASSIUM 2.9 mmol/L (3.5-5.1)
[2020-03-13] MEDS: POTASSIUM CHL 10 MEQ/WATER 50 ML IV PRN ×7 (06:37→17:08)
[2020-03-13 06:59] LABS: GLUCOMETER DEV NAME(LOC) 4E.2; GLUCOSE,POINT OF CARE 116 MG/DL (70-110)
[2020-03-13] MEDS: FAMOTIDINE 20 MG TABLET PO SCH ×2 (08:40→19:51)
[2020-03-13] MEDS: POVIDONE-IODINE 10% 120 ML SOLUTION TP SCH (08:41)
[2020-03-13] MEDS: THIAMINE 100 MG TABLET PO SCH (08:41)
[2020-03-13] MEDS: MULTIVITAMINS WITH MINERALS, THERAPEUTIC TABLET PO SCH (08:41)
[2020-03-13] MEDS: MAGNESIUM SULFATE 2 GM/WATER 50 ML IV PRN (11:12)
[2020-03-13] MEDS: WATER FOR INJECTION,STERILE 500 ML in DEXTROSE 5%-WATER 500 ML IV SCH (12:22)
[2020-03-13 12:35] LABS: PHOSPHORUS 3.2 mg/dL (2.5-4.9); POTASSIUM 3.6 mmol/L (3.5-5.1)
[2020-03-13 12:37] LABS: GLUCOSE,POINT OF CARE 129 MG/DL (70-110)
[2020-03-13 15:16] LABS: GLUCOMETER DEV NAME(LOC) 4E.2; GLUCOSE,POINT OF CARE 129 MG/DL (70-110)
[2020-03-13] MEDS: CASPOFUNGIN ACETATE 50 MG in SODIUM CHLORIDE 0.9% 250 ML IV SCH (16:08)
[2020-03-13] MEDS: MORPHINE SULFATE 2 MG/ML SYRINGE IVP PRN (16:59)
[2020-03-13 18:20] LABS: GLUCOMETER DEV NAME(LOC) 4E.2; GLUCOSE,POINT OF CARE 138 MG/DL (70-110)
[2020-03-13] MEDS: LEVOFLOXACIN 750 MG/D5% WATER 150 ML IV SCH (19:51)
[2020-03-13] MEDS: INSULIN REGULAR, HUMAN 100 UNITS/ML SQ PRN (23:19)
[2020-03-14] VITALS: BP 137/80
[2020-03-14 04:00] VITALS: BP 139/88
[2020-03-14] MEDS: MetroNIDAZOLE 500 MG/NACL 100 ML IV SCH ×2 (04:09→12:31)
[2020-03-14 05:34] LABS: ALBUMIN 1.1 g/dL (3.4-5.0); ALKALINE PHOSPHATASE 134 U/L (46-116); ANION GAP 12 mmol/L (8-16); BILIRUBIN,TOTAL 0.4 mg/dL (0.1-1.0); C-REACTIVE PROTEIN QUANT 8.82 mg/dL (0.00-0.30); CALCIUM, TOTAL 7.5 mg/dL (8.8-10.5); CARBON DIOXIDE 24 mmol/L (22-29); CHLORIDE 113 mmol/L (98-107); GLOMERULAR FILTR. RATE CALC > 60 mL/min (>60); GLUCOSE,RANDOM 157 mg/dL (70-110); POTASSIUM 3.5 mmol/L (3.5-5.1); SODIUM SERUM 149 mmol/L (136-145); UREA NITROGEN, BLOOD 13 mg/dL (7-18)
[2020-03-14] MEDS: AMPICILLIN SODIUM 2 GM/NS 100 ML IV SCH ×3 (05:35→18:05)
[2020-03-14 06:45] LABS: GLUCOMETER DEV NAME(LOC) 4E.2; GLUCOSE,POINT OF CARE 128 MG/DL (70-110)
[2020-03-14 06:48] LABS: GLUCOSE,POINT OF CARE 172 MG/DL (70-110)
[2020-03-14 06:57] LABS: ASPARTATE AMINOTRANSFERASE 26 U/L (15-37)
[2020-03-14 07:40] LABS: ALANINE AMINOTRANSFERASE 11 U/L (12-78)
[2020-03-14] MEDS: PROPOFOL 1000 MG/ISO-OSM 100 ML IV PRN ×3 (07:44→19:10)
[2020-03-14] MEDS: POTASSIUM CHL 10 MEQ/WATER 50 ML IV PRN ×3 (07:44→09:34)
[2020-03-14 08:00] VITALS: BP 134/67
[2020-03-14] MEDS: WATER FOR INJECTION,STERILE 500 ML in DEXTROSE 5%-WATER 500 ML IV SCH (09:01)
[2020-03-14] MEDS: POVIDONE-IODINE 10% 120 ML SOLUTION TP SCH (09:02)
[2020-03-14] MEDS: MULTIVITAMINS WITH MINERALS, THERAPEUTIC TABLET PO SCH (09:02)
[2020-03-14] MEDS: FAMOTIDINE 20 MG TABLET PO SCH (09:02)
[2020-03-14] MEDS: THIAMINE 100 MG TABLET PO SCH (09:02)
[2020-03-14] MEDS: MAGNESIUM SULFATE 2 GM/WATER 50 ML IV PRN (10:55)
[2020-03-14 11:51] LABS: ABG A-A DIFF O2 119.7 mmHg (10-20.0); ABG BASE EXCESS -0.1 mmol/L (-2.0-3.0); ABG CARBOXYHEMOGLOBIN 0.7 % (0.0-3.0); ABG HCO3 24.5 mmol/L (22.0-26.0); ABG METHEMOGLOBIN 0.3 % (0.0-1.5); ABG OXYGEN CONTENT 9.6 mL/dL (15.0-23.0); ABG OXYGEN SATURATION 94.2 % (95.0-98.0); ABG OXYHEMOGLOBIN 93.3 % (94.0-100.0); ABG PCO2 31 mmHg (35-45); ABG PH 7.495 (7.350-7.450); PO2, ARTERIAL BG 59.5 mmHg (80.0-100.0); SOURCE, BLOOD GAS ARTERIAL; TEMPERATURE, FAHRENHEIT, BG 94.4 FAHREN (96.0-98.6)
[2020-03-14 11:52] LABS: ABG TOTAL HEMOGLOBIN 7.2 G/dL (12.0-18.0); O2 DEVICE,BLOOD GAS VENTILATOR (ROOM AIR); PEEP,BG 5 cm H2O; SITE, BLOOD GAS ARTERIAL LINE; VT, ABG 450 ml
[2020-03-14 12:00] VITALS: BP 120/77
[2020-03-14] MEDS: INSULIN REGULAR, HUMAN 100 UNITS/ML SQ PRN (12:32)
[2020-03-14 14:05] LABS: GLUCOSE,POINT OF CARE 145 MG/DL (70-110)
[2020-03-14 16:00] VITALS: BP 120/71
[2020-03-14] MEDS: CASPOFUNGIN ACETATE 50 MG in SODIUM CHLORIDE 0.9% 250 ML IV SCH (16:18)
[2020-03-14] MEDS ORDERED: SODIUM CHLORIDE 0.9% 500 ML IV ONE (17:04)
[2020-03-14 19:10] VITALS: BP 129/74
[2020-03-14 19:16] LABS: GLUCOMETER DEV NAME(LOC) 4E.2; GLUCOSE,POINT OF CARE 127 MG/DL (70-110)
== END 2020-03-14 19:50 | DRG 710 ==
LOC: EMS 03:20 → ICUN 19:00 → ICU 02-13 15:03 → 5S 02-14 03:00 → ICUN 02-18 17:35 → ICU 02-20 19:36 → 5S 02-28 17:45 → ICU 03-07 00:51
PROVIDERS: ADMIT Internal Medicine; ATTEND Hospitalist
PROC: 06HY33Z Insertion of Infusion Device into Lower Vein, Percutaneous Approach (ICD-10-PCS; 2020-02-11)
PROC: 0Y6S0Z0 Detachment at Left 2nd Toe, Complete, Open Approach (ICD-10-PCS; principal; 2020-02-13)
PROC: 0QBP0ZZ Excision of Left Metatarsal, Open Approach (ICD-10-PCS; 2020-02-13)
PROC: 5A1955Z Respiratory Ventilation, Greater than 96 Consecutive Hours (ICD-10-PCS; 2020-02-19)
PROC: 0W9800Z Drainage of Chest Wall with Drainage Device, Open Approach (ICD-10-PCS; 2020-02-19)
PROC: 0W9B30Z Drainage of Left Pleural Cavity with Drainage Device, Percutaneous Approach (ICD-10-PCS; 2020-02-19)
PROC: 0W9930Z Drainage of Right Pleural Cavity with Drainage Device, Percutaneous Approach (ICD-10-PCS; 2020-02-19)
PROC: 0BH17EZ Insertion of Endotracheal Airway into Trachea, Via Natural or Artificial Opening (ICD-10-PCS; 2020-02-19)
PROC: 05HY33Z Insertion of Infusion Device into Upper Vein, Percutaneous Approach (ICD-10-PCS; 2020-02-22)
PROC: B54NZZA Ultrasonography of Left Upper Extremity Veins, Guidance (ICD-10-PCS; 2020-02-22)
PROC: 05HN33Z Insertion of Infusion Device into Left Internal Jugular Vein, Percutaneous Approach (ICD-10-PCS; 2020-02-29)
PROC: 5A09457 Assistance with Respiratory Ventilation, 24-96 Consecutive Hours, Continuous Positive Airway Pressure (ICD-10-PCS; 2020-03-07)
PROC: 0W993ZZ Drainage of Right Pleural Cavity, Percutaneous Approach (ICD-10-PCS; 2020-03-08)
PROC: 5A1955Z Respiratory Ventilation, Greater than 96 Consecutive Hours (ICD-10-PCS; 2020-03-09)
PROC: 302 Administration, Circulatory, Transfusion (ICD-10-PCS; 2020-03-10)
DX: A41.9 Sepsis, unspecified organism (principal); J96.01 Acute respiratory failure with hypoxia; N17.0 Acute kidney failure with tubular necrosis; G72.81 Critical illness myopathy; E43 Unspecified severe protein-calorie malnutrition; R65.21 Severe sepsis with septic shock; K31.84 Gastroparesis; I07.1 Rheumatic tricuspid insufficiency; E11.43 Type 2 diabetes mellitus with diabetic autonomic (poly)neuropathy; R18.8 Other ascites; I46.9 Cardiac arrest, cause unspecified; E11.10 Type 2 diabetes mellitus with ketoacidosis without coma; E87.4 Mixed disorder of acid-base balance; E11.52 Type 2 diabetes mellitus with diabetic peripheral angiopathy with gangrene; E11.621 Type 2 diabetes mellitus with foot ulcer; D47.3 Essential (hemorrhagic) thrombocythemia; J45.909 Unspecified asthma, uncomplicated; E11.69 Type 2 diabetes mellitus with other specified complication; L97.529 Non-pressure chronic ulcer of other part of left foot with unspecified severity; E86.9 Volume depletion, unspecified; D63.8 Anemia in other chronic diseases classified elsewhere; E11.22 Type 2 diabetes mellitus with diabetic chronic kidney disease; E11.319 Type 2 diabetes mellitus with unspecified diabetic retinopathy without macular edema; E11.649 Type 2 diabetes mellitus with hypoglycemia without coma; E87.0 Hyperosmolality and hypernatremia; E87.6 Hypokalemia; F11.10 Opioid abuse, uncomplicated; F17.200 Nicotine dependence, unspecified, uncomplicated; I13.0 Hypertensive heart and chronic kidney disease with heart failure and stage 1 through stage 4 chronic kidney disease, or unspecified chronic kidney disease; J44.9 Chronic obstructive pulmonary disease, unspecified; L02.213 Cutaneous abscess of chest wall; L03.032 Cellulitis of left toe; L03.313 Cellulitis of chest wall; M86.172 Other acute osteomyelitis, left ankle and foot; N18.9 Chronic kidney disease, unspecified; R13.10 Dysphagia, unspecified; Z20.828 Contact with and (suspected) exposure to other viral communicable diseases; Z79.4 Long term (current) use of insulin; Z88.1 Allergy status to other antibiotic agents; Z91.19 Patient's noncompliance with other medical treatment and regimen; Z99.11 Dependence on respirator [ventilator] status; Z68.1 Body mass index [BMI] 19.9 or less, adult; Z79.891 Long term (current) use of opiate analgesic; Z79.2 Long term (current) use of antibiotics; Z79.01 Long term (current) use of anticoagulants; Z79.83 Long term (current) use of bisphosphonates; Z79.52 Long term (current) use of systemic steroids; Z79.899 Other long term (current) drug therapy; Z68.26 Body mass index [BMI] 26.0-26.9, adult; Z78.1 Physical restraint status
CPT/HCPCS: 32555; 36245; 36556; 36569; 36600; 71250; 71260; 71275; 73220; 73720; 76937; 76942; 82270; 82271; 82728; 82805; 82948; 83605; 83615; 83735; 84100; 84132; 84145; 84443; 85014; 85018; 85379; 85651; 86140; 86850; 86900; 86901; 86923; 87015; 87040; 87070; 87081; 87086; 87101; 87106; 87184; 87186; 87205; 87206; 87252; 87324; 87389; 87449; 88112; 88185; 88189; 88305; 88311; 88312; 92526; 92610; 93005; 93306; 94002; 94003; 94640; 94660; 97110; 97162; 97163; 97167; 97530; 97535; 99242; 99291; A9585; G0378; J0171; J0290; J0330; J0637; J1450; J1815; J1940; J1956; J2060; J2250; J2270; J2370; J2405; J2543; J2704; J3010; J3370; J3475; J3480; J3490; J7030; J7040; J7050; J7060; J7120; J7131; P9016; P9041; P9046